=== PATIENT | female | born 1950 | race African-American/Black ===

== ENCOUNTER 2018-10-03 17:30 | Inpatient (IN) | payer MEDICARE ==
[2018-10-03 18:25] LABS: Hemoglobin 8.3 g/dL (12.0-16.0); Red Blood Cell (RBC) Count 3.89 mill/uL (4.20-5.40)
[2018-10-03 18:26] LABS: Mean Platelet Volume 7.6 fL (7.4-10.4); Platelet Count 456 thou/uL (130-400); RBC Distribution Width 17.9 % (11.5-14.5)
[2018-10-03 18:36] LABS: ALT (SGPT) 9 U/L (8-55); AST (SGOT) 14 U/L (5-34); Albumin 3.8 g/dL (3.4-4.8); Alkaline Phosphatase 84 U/L (40-150); Anion Gap 15 mmol/L (10-20); BUN (Urea Nitrogen) 25 mg/dL (9.8-20.1); Bilirubin, Total 0.4 mg/dL (0.2-1.2); CK (CPK) 25 U/L (29-168); CKMB 0.8 ng/mL (0-6.6); Calc. Creatinine Clearance 0 mL/min (70-130); Calcium 8.6 mg/dL (7.8-10.44); Carbon Dioxide 27 mmol/L (23-31); Chloride 97 mmol/L (98-107); Estimated GFR-MDRD 45; Globulin 2.9 g/dL (2.4-3.5); Glucose 102 mg/dL (80-115); Lipase 9 U/L (8-78); Potassium 3.2 mmol/L (3.5-5.1); Protein, Total 6.7 g/dL (6.0-8.3); Sodium 136 mmol/L (136-145)
[2018-10-03 18:37] LABS: Bilirubin Small (Negative); Blood, Urine Negative (Negative); Clarity CLEAR (Clear); Glucose, Urine (Dipstick) Negative (Negative); Leukocyte Negative (Negative); Nitrite Negative (Negative); Protein, Urine (Dipstick) 30 mg/dL (Neg-Trace); Specific Gravity, Urine 1.023 (1.002-1.036); Urobilinogen 0.2 mg/dL (0.2-1.0); pH, Urine 5.5 (5.0-9.0)
[2018-10-03 18:38] LABS: Bacteria/HPF None Seen HPF (None Seen); Pathc Cast-AUWi Flag 2.18 (0-2.49); RBC/HPF 0-3 HPF (0-3); Squamous Epithelial 0-3 HPF (0-3); WBC/HPF 0-3 HPF (0-3)
[2018-10-03 18:42] LABS: Hyaline Casts/LPF 0-3 HYALINE CAST LPF (0-3 Hyaline)
[2018-10-03 18:55] LABS: Acanthocytes SLIGHT = 1-5 cells (100X) (None Seen); Anisocytosis SLIGHT = 6-15 cells (100X) (0-5/hpf); Band 6 % (5-11); Elliptocytes SLIGHT = 2-5 cells (100X) (0-1/hpf); Hypochromia SLIGHT = 6-15 cells (100X) (0-5/hpf); Lymphocytes 7 % (21-51); MDiff Complete? YES; Mean Corpuscular HGB CONC 30.8 g/dL (32.0-36.0); Mean Corpuscular Hemoglobin 21.4 pg (27.0-31.0); Mean Corpuscular Volume 69.6 fL (78.0-98.0); Microcytosis SLIGHT = 6-15 cells (100X) (0-5/hpf); Monocytes 4 % (0-10); Neutrophil 81 % (42-75); PLT Morphology Comment Appears Increased; Polychromasia SLIGHT = 2-3 cells (100X) (0-2/hpf); Reactive Lymphocytes 2 % (0-10); Tear Drops SLIGHT = 2-5 cells (100X) (0-1/hpf)
--- NOTE | 2018-10-03 18:58 | RAD ---
FRONTAL RADIOGRAPH CHEST: 10/03/2018 HISTORY: Nausea, vomiting, diarrhea, and fever with abdominal cramping. COMPARISON: 05/14/2018 FINDINGS: There is increased linear interstitial density with pulmonary hyperinflation. There is atherosclerot ic calcification of the aortic arch, and midline sternotomy wires are noted. A right-sided Port-A-Ca th is present, the distal tip overlying the region of the cavoatrial junction. All these findings ar e stable. There is no pneumothorax, pleural fluid, focal consolidation, or alveolar edema. IMPRESSION: Stable appearance of the chest. No acute findings. POS: [facility]
[2018-10-03] MEDS ORDERED: Acetaminophen 500 MG TAB ONE (19:26)
[2018-10-03] MEDS ORDERED: metroNIDAZOLE 500 MG/100 ML BAG ONE (20:43)
--- NOTE | 2018-10-03 21:01 | CT ---
CT ABDOMEN AND PELVIS PERFORMED WITH INTRAVENOUS CONTRAST ENHANCEMENT: HISTORY: Abdominal pain. The patient is in atrial fibrillation. History of gallbladder removal and hysterect efrain. COMPARISON: None. FINDINGS: The lung bases show some COPD type change. There is indeterminate, 11 mm hypodensity within the right lobe of the liver. CT numbers are higher than typically seen for a cyst, and this would need to be further characterized on a nonemergent basi s with a CT done with liver mass protocol. The spleen and pancreas regions are unremarkable, and the gallbladder has been removed. The right and left adrenal glands are normal. The right and left kidneys are normal in size and not obstructed. There is a hypodensity within the right kidney, most likely a small cyst. There is extensive atherosclerotic change of the vessels. There is moderately high-grade stenosis of the origin of the celiac artery, somewhat difficult to assess on the nonangiographic phase exam, and dense plaque formation at the origin of the superior mesenteric artery, with the suggestion that the re is moderate narrowing also at this level. There is fluid within both the small and large bowel, r aising the possibility of a mild enterocolitis. I do not see any inflammatory process. No evidence for pneumatosis. There is a 4 cm intrarenal abdominal aortic aneurysm. Dense atherosclerotic change at the aortic bif urcation is present, and there appears to be a fairly long segment of occlusion of the right common i liac artery. I do not see any type of inflammatory change in the region of the appendix. The append ix is not definitively identified. No free fluid is seen within the pelvis. There are arthritic changes of the spine with osteoporotic type compression changes of multiple verte bral bodies. IMPRESSION: 1. Fluid throughout the colon but also within the small bowel, raising the possibility of an enteroc olitis. 2. 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 3. A 4 cm infrarenal abdominal aortic aneurysm. 4. Apparent occlusion of a fairly long segment of the right common iliac artery. 5. Indeterminate right lobe hepatic lesion. Findings as discussed above. POS: [facility]
[2018-10-03] MEDS ORDERED: Potassium Chloride 20 MEQ TAB ONE (21:15)
[2018-10-03] MEDS ORDERED: Fentanyl 100 MCG/2 ML VIAL ONE (21:18)
[2018-10-03] MEDS ORDERED: Ondansetron PF 4 MG/2 ML Vial ONE ×2 (21:22→21:30)
[2018-10-03 21:44] LABS: Lactic Acid 0.9 mmol/L (0.5-2.2)
[2018-10-03 21:54] LABS: Troponin I 0.067 ng/mL (< 0.028)
[2018-10-04 00:17] VITALS: BMI 23.5
[2018-10-04] MEDS ORDERED: Fentanyl 100 MCG/2 ML VIAL SLOW IVP PRN (00:52)
[2018-10-04] MEDS ORDERED: Sodium Chloride 0.9% 1,000 ML IV SCH (01:00)
[2018-10-04 01:02] LABS: Troponin I 0.095 ng/mL (< 0.028)
[2018-10-04] MEDS ORDERED: metroNIDAZOLE 500 MG in Premix Bag 1 BAG IVPB SCH (05:00)
[2018-10-04] MEDS ORDERED: Potassium Chloride 20 MEQ TAB PO SCH (08:00)
[2018-10-04] MEDS ORDERED: Aspirin 325 MG TAB PO SCH (09:00)
[2018-10-04] MEDS ORDERED: PROVENTIL INHALER 6.7 G (200 INHALATIONS) INH PRN (09:27)
[2018-10-04] MEDS ORDERED: Artificial Tear Sol 15 ML BOT EA EYE PRN (09:29)
[2018-10-04] MEDS ORDERED: Furosemide 40 MG TAB PO SCH (09:45)
[2018-10-04] MEDS ORDERED: Lisinopril 2.5 MG TAB PO SCH (09:45)
[2018-10-04] MEDS ORDERED: predniSONE 5 MG TAB PO SCH (09:45)
[2018-10-04] MEDS ORDERED: Aspirin 81 mg Enteric Coated Tablet PO SCH (09:45)
[2018-10-04] MEDS ORDERED: Escitalopram Oxalate 20 mg Tablet PO SCH (09:45)
[2018-10-04] MEDS ORDERED: Metoprolol Tartrate 25 MG TAB PO SCH (09:45)
[2018-10-04] MEDS ORDERED: Vancomycin HCl 1 GM in Premix Bag 1 BAG IVPB SCH (10:00)
--- NOTE | 2018-10-04 11:38 | CON ---
DATE OF CONSULTATION: 10/04/2018 REASON FOR CONSULTATION: Vomiting, diarrhea. HISTORY OF PRESENT ILLNESS: A 67-year-old patient who has a history of advanced obstructive lung dis ease, O2 dependent, with a recent admission in May to [facility] when she was treated for exacerbation of COPD. She also has a history of coronary artery disease with prior bypass graft wei gail. While in the hospital in May, she was admitted to the [facility] and treated with nebulization, Allegra u-Medrol, Mucinex, and her microbiology results then were not particularly remarkable. She had bacil roger in one set of blood cultures, likely a contaminant. At this time, she presents from home with na usea, vomiting and diarrhea for the past 3 days associated with abdominal cramps and some fever. No headaches, no visual symptoms, sore throat, odynophagia or dysphagia. Chronic dyspnea as usual, but mild. No chest pain. No sputum production or significant cough. No bleeding, no genitourinary symp toms. Chronic arthrosis in multiple joints. PAST MEDICAL HISTORY: Hypertension, hyperlipidemia, coronary artery disease with prior [place] and mendoza ry bypass graft surgery. She has had a history of lymphoma treated with chemotherapy through a [facility] or[facility], in remission at this time. Previous gastric ulcer. PAST SURGICAL HISTORY: Includes bypass graft surgery cholecystitis with cholecystectomy. SOCIAL HISTORY: Former smoker and lives in her own residence in the area. ALLERGIES: GABAPENTIN, LATEX and PENICILLIN with rash. FAMILY HISTORY: Noncontributory. CURRENT MEDICATIONS: Includes Tylenol, Proventil, DuoNeb, Ecotrin, Lipitor, Lexapro, Lasix, levoflox acin, lisinopril, Zestril, metoprolol, metronidazole, mometasone, pantoprazole, prednisone 10 mg michael y. PHYSICAL EXAMINATION: VITAL SIGNS: T-max 101.1 just recently, blood pressure 120/60, pulse 96, respirations 20, O2 saturat ion 97% on 3 liters nasal cannula. SKIN: Areas of bruising in the extensor aspect of upper extremities. The patient has a port in the right subclavian location which has not been accessed. She is voiding spontaneously. HEENT: Ocular movements are conjugate. Pupils are equal and reactive. Oral cavity is not particula rly remarkable. NECK: Supple, no jugular vein distention. LUNGS: With diminished breath sounds, but no obvious wheezing or crackles. CARDIOVASCULAR: Heart sounds are present, but somewhat diminished. S1, S2 without obvious murmurs. No S3. Regular rate. ABDOMEN: Soft with increased bowel sounds. No particular tenderness noted. No organomegaly or asci luigi. No bladder distention. EXTREMITIES: She is able to move extremities. Pulses 1+ in dorsalis pedis. Trace edema in the lowe r extremities. She has a right knee replacement without any inflammatory changes. NEUROLOGIC: Plantar responses are flexure. No clonus. She is awake, oriented, follows commands. M sharri is preserved. LABORATORY DATA: White cell count 24,000, hemoglobin 8.3, platelets 456 with 81% neutrophils. Chemi stry with a sodium 136, potassium 3.2, creatinine 1.4 and a baseline creatinine is 0.82. Liver profi le normal. CK 25. BNP 223. Troponin 0.06. Albumin 2.8, globulin 2.9. Urinalysis fairly unremarka ble. Influenza test was negative. Two sets of blood cultures are pending. IMAGING STUDIES: There is an abdomen and pelvis CT with fluid throughout the colon, but within the s mall bowel. Extensive atherosclerotic change with high grade stenosis of the celiac artery, occlusio n of a fairly long segment of right common iliac artery. ASSESSMENT: 1. Coronary artery disease. 2. 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 3. Advanced chronic obstructive pulmonary disease with chronic corticosteroid administration. 4. New onset of vomiting with diarrhea, evidence of enterocolitis on the abdomen CT and neutrophilia . DISCUSSION: Differential diagnosis includes Clostridium difficile colitis versus ischemic bowel dise ase versus an alternate form of infectious colitis. Submit C. diff in stool and then manage accordin gly. If C. diff positive, discontinue current antimicrobial and switch her to oral vancomycin, if ne gative, then continue current regimen and await on stool cultures.
[2018-10-04] MEDS: Sodium Chloride 0.9% 1,000 ML IV SCH (12:01)
[2018-10-04] MEDS: Acetaminophen 325 MG TAB PO PRN (12:01)
[2018-10-04] MEDS: metroNIDAZOLE 500 MG in Premix Bag 1 BAG IVPB SCH ×2 (14:27→20:30)
[2018-10-04] MEDS: Mometasone/Formoterol 120 PUFF INHALER INH SCH (18:26)
[2018-10-04] MEDS ORDERED: Mometasone Furoate 30 PUFF 220 MCG INH SCH (18:30)
[2018-10-04] MEDS: Atorvastatin Calcium 40 MG TAB PO SCH (20:29)
[2018-10-04] MEDS: Furosemide 40 MG TAB PO SCH (20:29)
[2018-10-04] MEDS: Montelukast Sodium 10 mg Tablet PO SCH (20:29)
[2018-10-05] MEDS: metroNIDAZOLE 500 MG in Premix Bag 1 BAG IVPB SCH ×2 (05:08→17:41)
[2018-10-05] MEDS: Sodium Chloride 0.9% 1,000 ML IV SCH ×2 (05:11→17:20)
[2018-10-05] MEDS: Acetaminophen 325 MG TAB PO PRN (05:14)
[2018-10-05 06:32] LABS: ALT (SGPT) 7 U/L (8-55); AST (SGOT) 15 U/L (5-34); Albumin 2.9 g/dL (3.4-4.8); Alkaline Phosphatase 58 U/L (40-150); Anion Gap 13 mmol/L (10-20); BUN (Urea Nitrogen) 18 mg/dL (9.8-20.1); Bilirubin, Total 0.3 mg/dL (0.2-1.2); Calc. Creatinine Clearance 38 mL/min (70-130); Calcium 7.9 mg/dL (7.8-10.44); Carbon Dioxide 23 mmol/L (23-31); Chloride 104 mmol/L (98-107); Estimated GFR-MDRD 54; Globulin 2.3 g/dL (2.4-3.5); Glucose 89 mg/dL (80-115); Protein, Total 5.2 g/dL (6.0-8.3); Sodium 137 mmol/L (136-145)
[2018-10-05 06:34] LABS: Potassium 2.5 mmol/L (3.5-5.1)
[2018-10-05] MEDS: Mometasone/Formoterol 120 PUFF INHALER INH SCH ×2 (07:35→18:54)
[2018-10-05 07:37] LABS: #Basophils 0.1 thou/uL (0.0-0.2); #Eosinphils 0.1 thou/uL (0.0-0.7); #Monocytes 0.8 thou/uL (0.11-0.59); #Neutrophils 10.2 thou/uL (1.40-6.50); %Basophils 0.4 % (0.0-1.0); %Eosinophils 0.5 % (0.0-10.0); %Lymphocytes 8.6 % (21.0-51.0); %Monocytes 6.8 % (0.0-10.0); %Neutrophils 83.8 % (42.0-75.0); Hemoglobin 6.4 g/dL (12.0-16.0); Mean Corpuscular HGB CONC 30.3 g/dL (32.0-36.0); Mean Corpuscular Hemoglobin 21.6 pg (27.0-31.0); Mean Corpuscular Volume 71.2 fL (78.0-98.0); Mean Platelet Volume 7.7 fL (7.4-10.4); Platelet Count 313 thou/uL (130-400); RBC Distribution Width 17.3 % (11.5-14.5); Red Blood Cell (RBC) Count 2.94 mill/uL (4.20-5.40); White Blood Cell (WBC) Count 12.1 thou/uL (4.8-10.8)
[2018-10-05 07:46] LABS: Hypochromia MODERATE=16-30 cells (100X) (0-5/hpf); MDiff Complete? YES; Microcytosis MODERATE=15-30 cells (100X) (0-5/hpf); Ovalocytes MODERATE= 6-15 cells (100X) (0-1/hpf); PLT Morphology Comment Appears Adequate; Polychromasia MODERATE = 3-4 cells (100X) (0-2/hpf); Sickle Cells SLIGHT = 1-5 cells (100X) (None Seen)
--- NOTE | 2018-10-05 08:15 | HP ---
CHIEF COMPLAINT: Nausea, vomiting, diarrhea, and abdominal pain. HISTORY OF PRESENT ILLNESS: Ms. Mena is a 67-year-old female with past medical history of end-stage COPD. She came because of abnormal cramping, nausea , vomiting and diarrhea. The patient states that she started with diarrhea and watery loose stools about 4 to 5 days ago, then started nausea and vomiting 2 days ago. She had several loose stools as well as vomited 3 times. She also started having fever yesterday last night, had temperature of 102. She has been having abdominal cramping for one week. Because of these worsening of the symptoms, the patient visited the hospital. In the ER, the patient was evaluated and found to have fever, leukocytosis as well as possible enterocolitis. The patient received IV fluid as well as antibiotics, Flagyl and Levaquin. So, Trina is admitted for further evaluation and management. PAST MEDICAL HISTORY: 1. COPD end-stage, on oxygen. 2. Coronary artery disease status post CABG. 3. Anxiety disorder. 4. Hypertension. 5. Hyperlipidemia. PAST SURGICAL HISTORY: Status post CABG. CURRENT MEDICATIONS: The patient is on aspirin 81 mg daily, Lipitor 40 mg daily , Symbicort 160/4.5 two puffs b.i.d., Lexapro 20 mg daily, Flovent nasal spray b.i.d. daily, Lasix 40 mg b.i.d., and DuoNeb t.i.d., lisinopril 2.5 mg daily, metoprolol 25 mg daily, Singulair 10 mg daily, omeprazole 40 mg daily, KCL 10 mEq daily, and magnesium 10 mg daily. ALLERGIES: LATEX AND PENICILLIN. FAMILY HISTORY: Nothing significant. SOCIAL HISTORY: The patient lives with the family, no history of alcohol intake , currently smokes half pack a day. REVIEW OF SYSTEMS: CARDIOVASCULAR: Has shortness of breath. No chest pain. RESPIRATORY: Has cough and fever. GASTROINTESTINAL: Has nausea, vomiting, abdominal pain, weight gain, diarrhea. CENTRAL NERVOUS SYSTEM: No headache. PHYSICAL EXAMINATION GENERAL: The patient is alert, awake and oriented x3. VITAL SIGNS: Temperature 98, pulse 73, respirations 20, blood pressure 100/60. HEENT: Head is normocephalic and atraumatic. Pupils are equal and reactive. Nasopharynx is pale and dry. HEART: S1 and S2. No murmur, rubs, or gallops. SKIN: Turgor decreased. NECK: Supple, no JVD. LUNGS: Breath sounds diminished bilaterally, percussion dull. No wheezing noticed. ABDOMEN: Soft, diffusely tender. No guarding.BS+ LABORATORY DATA: [place] [address], hemoglobin 8.3, hematocrit 27, platelets 456. Metabolic panel; sodium 136, potassium 3.2, chloride 97, CO2 of 27, BNP 223. IMAGING DATA: Chest x-ray shows chronic changes. CT of the abdomen showed kassandra enterocolitis and also occlusion of right common iliac artery as well as high grade stenosis in the celiac and superior mesenteric artery. EKG shows sinus tachycardia with the heart rate of 139. No acute ST-T changes. ASSESSMENT: 1. Acute enterocolitis. 2. Leukocytosis. 3. Fever rule out sepsis. 4. Chronic obstructive pulmonary disease, end-stage oxygen dependent. 5. Chronic anemia. 6. 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 7. Occlusion of right common iliac artery. PLAN: 1. Vital signs q. 4 hours. 2. Allergies: PENICILLIN and LASIX. 3. Diet, clear liquids. 4. IV fluids half normal saline at 70 mL per hour. 5. Flagyl 500 mg IV piggyback q.8h. Levaquin 750 mg IV piggyback daily. 6. Continue home medications. 7. DNS q.i.d. 8. Infectious Disease Consult. 9. CBC and CMP in the morning. 10. GI consult. Job ID: [id number] [facility]
[2018-10-05] MEDS: Potassium Chloride 20 MEQ in Premix Bag 1 BAG IVPB SCH ×2 (09:19→12:19)
[2018-10-05] MEDS: predniSONE 5 MG TAB PO SCH (10:29)
[2018-10-05] MEDS: Aspirin 81 mg Enteric Coated Tablet PO SCH (10:30)
[2018-10-05] MEDS: Furosemide 40 MG TAB PO SCH ×2 (10:30→21:49)
[2018-10-05] MEDS: Escitalopram Oxalate 20 mg Tablet PO SCH (10:30)
[2018-10-05] MEDS: Lisinopril 2.5 MG TAB PO SCH (10:31)
[2018-10-05] MEDS: Potassium Chloride 10 MEQ TAB PO SCH (10:31)
[2018-10-05] MEDS: Metoprolol Tartrate 25 MG TAB PO SCH (10:31)
--- NOTE | 2018-10-05 15:18 | PQF ---
CLINICAL DOCUMENTATION IMPROVEMENT CLARIFICATION FORM: ICD-10 Updated PLEASE DO AN ADDENDUM TO THE PROGRESS NOTE WITH ANY DOCUMENTATION UPDATES OR ADDITIONS AND CARRY THROUGH TO DC SUMMARY. THANK YOU. DATE: 10/05/18 ATTN: Dr. Morrissey Please exercise your independent, professional judgment in responding to the clarification form. Clinical indicators are provided on the bottom of this form for your review Please check appropriate box(s): [ ] Chronic Respiratory Failure only [ ] with Hypoxia [ y ] Chronic Respiratory Failure only [ ] with Hypercapnia [ ] Other diagnosis [ ] Unable to determine In addition, please specify: Present on Admission (POA): [ y ] Yes [ ] No [ ] Unable to determine For continuity of documentation, please document condition throughout progress notes and discharge summary. Thank You. CLINICAL INDICATORS - SIGNS / SYMPTOMS / LABS ER: RESP. 26 O2 SAT 96 ON 3L Oxygen H&P 10/04: Chronic obstructive pulmonary disease, end-stage oxygen dependent. RISKS: H&P 10/03: COPD end-stage, on oxygen. CAD s/p CABG. HTN. TREATMENT: Order : Resp: O2 to keep sats 92% continuous Order 10/04: Duoneb 3 ml Neb QID Thank you, Petra (This form is maintained as a part of the permanent medical record) 2014 [employer]. All Rights Reserved Petra Valera RN, BSN [email or web address] Office: [phone] [facility]
--- NOTE | 2018-10-05 15:18 | CON ---
DATE OF CONSULTATION: 10/05/2018 REASON FOR CONSULTATION: Abdominal pain associated with nausea, vomiting, and diarrhea. HISTORY OF PRESENT ILLNESS: Ms. Goode is a 67-year-old female with end-stage COPD, who presented to the hospital yesterday with a 3-4 day history of persistent nausea and vomiting associated with watery diarrhea. Concurrently, she reports having abdominal pain, mostly in the upper abdomen, characterized as crampy in nature. She denies having any subjective fevers or chills at home. The nausea and vomiting persisted. Diarrhea is multiple, small to moderate volume, and mostly loose stool without any blood or mucus. She did not have any recent travel history. There is no ill or household member with any gastrointestinal issue. The patient has not been on any recent antibiotics. On admission, the patient was noted to be profoundly hypovolemic and dehydrated. Currently, she feels much better with near resolution of her nausea and vomiting. The abdominal pain has greatly subsided. She still has loose watery diarrhea, although output subjectively is less. CT scan performed in the emergency room showed extensive atherosclerotic changes with high grade stenosis of celiac and SMA takeoff. She also has evidence of right common iliac artery occlusion. This is a small 1-cm right hepatic lesion. There is fluid-filled small bowel and colon without any abdominal dilatation or any significant inflammatory changes. Pancreas appeared normal. PAST MEDICAL HISTORY: 1. End-stage COPD. 2. Coronary artery disease, status post bypass surgery. 3. Hypertension. 4. Hyperlipidemia. 5. Anxiety disorder. 6. Peripheral vascular disease. ALLERGIES: PENICILLIN AND LATEX. HOME MEDICATIONS: Include; 1. Flovent b.i.d. 2. Metoprolol 25 mg daily. 3. Prednisone 10 mg daily. 4. Lisinopril 2.5 mg daily. 5. Symbicort b.i.d. 6. Lipitor 40 mg daily. 7. Lexapro 20 mg daily. 8. Aspirin 81 mg daily. 9. Omeprazole 40 mg b.i.d. 10. Lasix 20 mg b.i.d. 11. Singulair 10 mg nightly. SOCIAL HISTORY: The patient lives at home with her daughter and granddaughter. She does smoke, but no alcohol consumption. FAMILY HISTORY: Negative for any known GI GI malignancy. REVIEW OF SYSTEMS: A 10-point review of systems did not show any other pertinent positive or negatives. PHYSICAL EXAMINATION: VITAL SIGNS: Temperature is 98.0, blood pressure 98/51, and pulse of 81. GENERAL: She is alert, conversant, and in no distress. HEENT: Anicteric sclerae. Oropharynx clear. NECK: Supple. CV: Shows normal S1 and S2. Regular rate and rhythm. CHEST: Shows poor air flow bilaterally. No adventitious sound. ABDOMEN: Soft. No distention. No tympany. CHEST: Some mild tenderness in the medial right upper quadrant, but no guarding rebound. She has active bowel sounds. No organomegaly. EXTREMITIES: Shows no edema. LABORATORY DATA: WBC on admission is 24, currently at 12.1. Hemoglobin 6.4, MCV is 71.2, and platelet count of 313. Sodium 137, potassium 3.5, chloride 104, CO2 of 23, creatinine 1.19, and BUN of 18. LFTs are normal. BNP is 223. Lipase of 9. Abdominal CT as above in HPI. Stool C diff is negative. Stool for occult blood negative x2. Blood culture negative x2 at 24 hours. ASSESSMENT AND PLAN: 1. A 3-4 day history of nausea, vomiting, and diarrhea associated with abdominal pain. Currently, symptoms have much improved. CT scan did not show any inflammatory changes. Fluid in small bowel and colon are consistent with enterocolitis, most likely viral in origin. Blood cultures thus far have been negative. Stool Clostridium difficile has been negative. 2. Severe dehydration and hypokalemia from excessive nausea, vomiting, and diarrhea, being corrected. 3. Severe anemia, iron deficiency. The patient was last admitted in April of this year, but endoscopic evaluation was not performed because of her advanced chronic obstructive pulmonary disease. Currently, there is no evidence of overt bleeding. The stool for occult blood had been negative x2. 4. Abdominal pain, resolving. I doubt that this is from mesenteric insufficiency or abdominal angina. RECOMMENDATIONS: 1. Continue with supportive care, continue with gentle IV hydration. 2. We will start on clear liquids and advance as tolerated. 3. If final blood cultures are negative tomorrow and the patient continues to improve, can discontinue metronidazole and Levaquin tomorrow. 4. We will repeat blood count again, we will transfuse if the hemoglobin is less than 7. Currently, the patient is asymptomatic. 5. Overall supportive care, we will follow. Job ID: [id number]
[2018-10-05] MEDS ORDERED: Furosemide 20 MG/2 ML VIAL SLOW IVP SCH (17:15)
[2018-10-05] MEDS: Atorvastatin Calcium 40 MG TAB PO SCH (21:49)
[2018-10-05] MEDS: Montelukast Sodium 10 mg Tablet PO SCH (21:50)
[2018-10-06] MEDS: metroNIDAZOLE 500 MG in Premix Bag 1 BAG IVPB SCH ×4 (01:25→16:48)
[2018-10-06] MEDS: Mometasone/Formoterol 120 PUFF INHALER INH SCH ×2 (06:25→18:58)
[2018-10-06 06:42] LABS: Anion Gap 12 mmol/L (10-20); BUN (Urea Nitrogen) 8 mg/dL (9.8-20.1); Calc. Creatinine Clearance 47 mL/min (70-130); Calcium 8.5 mg/dL (7.8-10.44); Carbon Dioxide 26 mmol/L (23-31); Chloride 106 mmol/L (98-107); Estimated GFR-MDRD 68; Glucose 85 mg/dL (80-115); Sodium 141 mmol/L (136-145)
[2018-10-06 06:44] LABS: #Eosinphils 0.1 thou/uL (0.0-0.7); #Lymphocytes 1.4 thou/uL (1.20-3.40); %Basophils 0.1 % (0.0-1.0); %Eosinophils 0.7 % (0.0-10.0); %Lymphocytes 13.1 % (21.0-51.0); %Monocytes 9.6 % (0.0-10.0); %Neutrophils 76.5 % (42.0-75.0); Mean Corpuscular HGB CONC 32.1 g/dL (32.0-36.0); Mean Corpuscular Hemoglobin 24.2 pg (27.0-31.0); Mean Corpuscular Volume 75.4 fL (78.0-98.0); Mean Platelet Volume 8.2 fL (7.4-10.4); Platelet Count 318 thou/uL (130-400); Potassium 2.6 mmol/L (3.5-5.1); RBC Distribution Width 18.6 % (11.5-14.5); Red Blood Cell (RBC) Count 4.12 mill/uL (4.20-5.40); White Blood Cell (WBC) Count 10.5 thou/uL (4.8-10.8)
[2018-10-06 07:05] LABS: Elliptocytes SLIGHT = 2-5 cells (100X) (0-1/hpf); Polychromasia SLIGHT = 2-3 cells (100X) (0-2/hpf); Spherocytes SLIGHT = 1-5 cells (100X) (None Seen)
[2018-10-06 07:06] LABS: Acanthocytes SLIGHT = 1-5 cells (100X) (None Seen); PLT Morphology Comment Appears Adequate
[2018-10-06] MEDS: Potassium Chloride 20 MEQ in Premix Bag 1 BAG IVPB SCH ×2 (09:00→13:27)
[2018-10-06] MEDS: predniSONE 5 MG TAB PO SCH (09:01)
[2018-10-06] MEDS: Lisinopril 2.5 MG TAB PO SCH (09:01)
[2018-10-06] MEDS: Escitalopram Oxalate 20 mg Tablet PO SCH (09:01)
[2018-10-06] MEDS: Aspirin 81 mg Enteric Coated Tablet PO SCH (09:02)
[2018-10-06] MEDS: Potassium Chloride 10 MEQ TAB PO SCH (09:02)
[2018-10-06] MEDS: Metoprolol Tartrate 25 MG TAB PO SCH (09:02)
[2018-10-06] MEDS: Furosemide 40 MG TAB PO SCH ×3 (10:45→20:29)
[2018-10-06] MEDS ORDERED: Potassium Chloride 20 MEQ TAB PO SCH (15:00)
--- NOTE | 2018-10-06 15:41 | PQF ---
CLINICAL DOCUMENTATION IMPROVEMENT CLARIFICATION FORM: ICD-10 Updated PLEASE DO AN ADDENDUM TO THE PROGRESS NOTE WITH ANY DOCUMENTATION UPDATES OR ADDITIONS AND CARRY THROUGH TO DC SUMMARY. THANK YOU. DATE: 10/06/18 ATTN: Dr. Morrissey Please exercise your independent, professional judgment in responding to the clarification form. Clinical indicators are provided on the bottom of this form for your review Please check appropriate box(s) to clarify if the following diagnosis has been ruled in or ruled out: SEPSIS [ ] Ruled in diagnosis [ ] Continue to treat [ ] Resolved [ y ] Ruled out diagnosis [ ] Cannot rule out diagnosis [ ] Other diagnosis [ ] Unable to determine In addition, please specify: Present on Admission (POA): [y ] Yes [ ] No [ ] Unable to determine For continuity of documentation, please document condition throughout progress notes and discharge summary. Thank You. CLINICAL INDICATORS - SIGNS / SYMPTOMS / LABS ER RECORD 10/03: BP 107/49 Pulse 112 O2 sat 96 on 3L Oxygen Resp 26 Temp 102.1 DX: Acute sepsis. Enterocolitis, Indeterminate troponin H&P 10/03: WBC 2400 Acute enterocolitis Fever rule out sepsis RISKS: H&P: Acute enterocolitis; COPD. Chronic Anemia. TREATMENT: ORDER 10/04 - 10/05: NS IV 70mls/hr ORDER 10/04: IV Levaquin 750 mg Thank you, Petra (This form is maintained as a part of the permanent medical record) 2014 [employer] All Rights Reserved Petra Valera RN, BSN [email or web address] Office: [phone] [facility]
[2018-10-06] MEDS: Potassium Chloride 20 MEQ TAB PO SCH ×2 (16:48→20:27)
[2018-10-06] MEDS: Atorvastatin Calcium 40 MG TAB PO SCH (20:27)
[2018-10-06] MEDS: Montelukast Sodium 10 mg Tablet PO SCH (20:27)
--- NOTE | 2018-10-06 23:48 | PRG ---
DATE OF SERVICE: 10/06/2018 SUBJECTIVE: Ms. Mena wants to eat. She states she had 4 stools they were somewhat loose, but less loose than yesterday and less associated cramping. She denies any pain at this point but states she is hungry. OBJECTIVE: VITAL SIGNS: Temperature is 97.4, pulse 80, blood pressure 138/68. ABDOMEN: Soft, nontender. Bowel sounds are present. EXTREMITIES: No clubbing, cyanosis, or edema. LABORATORY DATA: White count is 10.5, hemoglobin is 10, MCV 75, platelet count 318. Sodium is 141, potassium , chloride is 106, bicarb 26, BUN and creatinine 8 and 0.9. ASSESSMENT: 1. Acute illness with nausea, vomiting, diarrhea, likely gastroenteritis, improving. 2. Thoracoabdominal pain, markedly improved. 3. Appetite is returning. 4. Severe chronic obstructive pulmonary disease. 5. Chronic microcytic anemia, on PPI therapy. 6. The patient had a CAT scan of the abdomen and pelvis on admission for abdominal pain, and there was extensive atherosclerotic vascular disease, moderate to high grade stenosis with the origin of celiac and the SMA. RECOMMENDATIONS: 1. Advance diet. 2. If she begins to have abdominal pain postprandially, then she would need to be seen by Vascular Surgery with regard to her mesenteric atherosclerotic vascular disease to see if there is any role for revascularization. She informed that she stopped smoking now, a year ago. 3. With regard to her microcytic anemia, she has had a history of iron deficiency in the past. When I had seen her previously in the hospital, her respiratory status was so poor that she could not undergo sedation for endoscopy. I think that after she recovers from this gastroenteritis, if she would like to consider that, we could plan for colonoscopy for cancer screening, EGD at a later date once she gets over the gastroenteritis. We will follow along with you. Job ID: [id number]
[2018-10-07] MEDS: metroNIDAZOLE 500 MG in Premix Bag 1 BAG IVPB SCH ×2 (00:38→08:33)
[2018-10-07] MEDS: Potassium Chloride 20 MEQ TAB PO SCH (00:39)
[2018-10-07 04:55] LABS: #Eosinphils 0.2 thou/uL (0.0-0.7); #Lymphocytes 1.8 thou/uL (1.20-3.40); #Neutrophils 7.3 thou/uL (1.40-6.50); %Eosinophils 1.9 % (0.0-10.0); %Lymphocytes 17.2 % (21.0-51.0); %Monocytes 9.6 % (0.0-10.0); %Neutrophils 71.2 % (42.0-75.0); Hemoglobin 9.9 g/dL (12.0-16.0); Mean Corpuscular HGB CONC 31.8 g/dL (32.0-36.0); Mean Corpuscular Hemoglobin 24.2 pg (27.0-31.0); Mean Corpuscular Volume 76.1 fL (78.0-98.0); Mean Platelet Volume 8.3 fL (7.4-10.4); Platelet Count 315 thou/uL (130-400); RBC Distribution Width 18.6 % (11.5-14.5); White Blood Cell (WBC) Count 10.2 thou/uL (4.8-10.8)
[2018-10-07 05:05] LABS: Anion Gap 10 mmol/L (10-20); BUN (Urea Nitrogen) 6 mg/dL (9.8-20.1); Calc. Creatinine Clearance 53 mL/min (70-130); Calcium 8.9 mg/dL (7.8-10.44); Carbon Dioxide 24 mmol/L (23-31); Chloride 108 mmol/L (98-107); Estimated GFR-MDRD 79; Glucose 85 mg/dL (80-115); Potassium 4.1 mmol/L (3.5-5.1); Sodium 138 mmol/L (136-145)
[2018-10-07] MEDS: Mometasone/Formoterol 120 PUFF INHALER INH SCH (06:35)
[2018-10-07] MEDS: Lisinopril 2.5 MG TAB PO SCH (08:32)
[2018-10-07] MEDS: Escitalopram Oxalate 20 mg Tablet PO SCH (08:32)
[2018-10-07] MEDS: Furosemide 40 MG TAB PO SCH (08:32)
[2018-10-07] MEDS: Aspirin 81 mg Enteric Coated Tablet PO SCH (08:32)
[2018-10-07] MEDS: predniSONE 5 MG TAB PO SCH (08:33)
[2018-10-07] MEDS: Metoprolol Tartrate 25 MG TAB PO SCH (08:33)
[2018-10-07] MEDS ORDERED: Potassium Chloride 20 MEQ TAB PO SCH (09:00)
[2018-10-07 15:33] VITALS: BP 131/60; TEMP 98.7
--- NOTE | 2018-10-08 20:20 | EKG ---
Test Reason : Blood Pressure : / mmHG Vent. Rate : 139 BPM Atrial Rate : 156 BPM P-R Int : 000 ms QRS Dur : 074 ms QT Int : 202 ms P-R-T Axes : 063 071 249 degrees QTc Int : 307 ms Sinus tachycardia with Fusion complexes Septal infarct , age undetermined Abnormal ECG Confirmed by MARI BOO, SAL ([id number]), editor magazine PATRICK YU ([id number]) on 10/08/2018 8:19:55 PM Referred By: Confirmed By:SAL GUERRA MD
--- NOTE | 2018-10-10 07:48 | PRG ---
DATE OF SERVICE: 10/07/2018 SUBJECTIVE: Ms. Mena is feeling well. She is having no further diarrhea. She is eating. OBJECTIVE: VITAL SIGNS: She is afebrile. T-max 99, T-current 99; pulse 71; and blood pressure 163/73. ABDOMEN: Soft and nontender. NEUROLOGIC: She is alert and oriented. LABORATORY DATA: White count is 10.2, hemoglobin is 9.9 after transfusion for a hemoglobin drift in the 6.4, MCV 76, and platelets 315. Sodium 138, potassium 4.1, BUN and creatinine of 6 and 0.87. Microbiology, stool Hemoccult negative x2 on the , all cultures for stool and C diff were negative. ASSESSMENT: 1. Acute gastritis, resolved. 2. Chronic microcytic anemia with documented iron deficiency in 04/2018. She was not able to undergo endoscopies in 04/2018 when I saw her as she had severe chronic obstructive pulmonary disease and was unstable from a respiratory standpoint. 3. 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 RECOMMENDATIONS: I agree that the patient can go home. I would recommended an EGD and colonoscopy in the outpatient setting in a few weeks. I have got her cellphone number, we are going to get her followup in the office so we can get that arranged. I think we could proceed with this now if she stops smoking. Her respiratory status is much better, although she still does have some emphysema and still does use a CPAP. Job ID: [id number]
--- NOTE | 2018-10-10 11:35 | DIS ---
DATE OF ADMISSION: 10/03/2018 DATE OF DISCHARGE: 10/07/2018 ADMITTING DIAGNOSES: 1. Acute enterocolitis, leukocytosis and fever, rule out sepsis, and chronic obstructive pulmonary disease. 2. Chronic anemia. 3. Mesenteric artery stenosis, also occlusion of right common iliac artery. FINAL DIAGNOSES: 1. Acute enterocolitis, resolved, leukocytosis and fever, resolved, and chronic obstructive pulmonary disease, stable, oxygen dependent. 2. Chronic anemia. 3. 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 4. Severe hypokalemia. BRIEF SUMMARY OF HOSPITAL COURSE: Ms. Mena is a 67-year-old female, admitted because of shortness of breath, nausea, vomiting, abdominal pain, and diarrhea. The patient was found to have enterocolitis in the CAT scan. The patient was started on IV antibiotics with Flagyl and levoquin The patient was seen by GI as well as Infectious Disease. advised cultures and if the cultures are negative, to discontinue the antibiotics. The patient have spontaneous severe hypokalemia, resolved. Her potassium dropped to 2.5 and it was replaced, came up to 4. The patient was also anemic. Her hemoglobin dropped to 6.4. She was transfused 2 units of packed red blood cells. The patient's nausea and vomiting slowly resolved and she was started on diet and she tolerated the diet very well. So the patient is discharged. At the time of discharge, she was stable and vital signs are stable lungs clear, Heart S1S2 regular DISCHARGE MEDICATIONS: Include; 1. Lipitor 40 mg daily. 2. Lexapro 20 mg daily. 3. Aspirin 81 mg daily. 4. Omeprazole 40 mg daily. 5. Symbicort 160/4.5 two puffs b.i.d. 6. Ventolin inhaler p.r.n. 7. KCl 20 mEq daily. 8. DuoNebs q.i.d. 9. Singulair 10 mg daily. 10. Lasix 40 mg b.i.d. 11. Metoprolol 25 mg daily. 12. Prednisone 10 mg daily. 13. Lisinopril 2.5 mg daily. 14. BuSpar 15 mg t.i.d. 15. Tylenol p.r.n. FOLLOWUP: The patient will come for followup in 2 weeks. Job ID: [id number] [facility]
== END 2018-10-07 16:47 | disposition home or self-care (01) | DRG 392 ==
LOC: ERS 17:30 → 2SW 21:05 → 2NO 10-06 23:13
PROVIDERS: ADMIT Internal Medicine; ATTEND Internal Medicine
PROC: 30233N1 Transfusion of Nonautologous Red Blood Cells into Peripheral Vein, Percutaneous Approach (ICD-10-PCS; principal; 2018-10-05)
DX: K52.89 Other specified noninfective gastroenteritis and colitis (principal); I74.5 Embolism and thrombosis of iliac artery; I77.4 Celiac artery compression syndrome; J96.10 Chronic respiratory failure, unspecified whether with hypoxia or hypercapnia; D72.829 Elevated white blood cell count, unspecified; Z99.81 Dependence on supplemental oxygen; Z88.0 Allergy status to penicillin; Z91.040 Latex allergy status; Z95.1 Presence of aortocoronary bypass graft; F41.9 Anxiety disorder, unspecified; I10 Essential (primary) hypertension; E78.5 Hyperlipidemia, unspecified; I25.10 Atherosclerotic heart disease of native coronary artery without angina pectoris; I73.9 Peripheral vascular disease, unspecified; F17.200 Nicotine dependence, unspecified, uncomplicated; E86.0 Dehydration; E87.6 Hypokalemia; D50.9 Iron deficiency anemia, unspecified; J44.9 Chronic obstructive pulmonary disease, unspecified
CPT/HCPCS: 36415; 36430; 51701; 71045; 74177; 80048; 80053; 81003; 81015; 82274; 82550; 82553; 83605; 83690; 83735; 83880; 84484; 85025; 86850; 86900; 86901; 87040; 87045; 87046; 87324; 87328; 87329; 87449; 87804; 87899; 93005; 94640; 96365; 96366; 96367; 96368; 96375; A4353; J1940; J1956; J2405; J3010; J3370; J3480; J7620; P9016

== ENCOUNTER 2019-01-01 17:02 | Observation (INO) | payer MEDICARE ==
[2019-01-01 17:37] LABS: #Lymphocytes 1.4 thou/uL (1.20-3.40); #Monocytes 0.3 thou/uL (0.11-0.59); #Neutrophils 12.1 thou/uL (1.40-6.50); %Basophils 0.1 % (0.0-1.0); %Eosinophils 0.1 % (0.0-10.0); %Lymphocytes 10.2 % (21.0-51.0); %Monocytes 1.8 % (0.0-10.0); %Neutrophils 87.7 % (42.0-75.0); Hemoglobin 8.2 g/dL (12.0-16.0); Mean Corpuscular HGB CONC 29.5 g/dL (32.0-36.0); Mean Corpuscular Hemoglobin 23.2 pg (27.0-31.0); Mean Corpuscular Volume 78.5 fL (78.0-98.0); Mean Platelet Volume 7.6 fL (7.4-10.4); Platelet Count 507 thou/uL (130-400); Red Blood Cell (RBC) Count 3.55 mill/uL (4.20-5.40); White Blood Cell (WBC) Count 13.8 thou/uL (4.8-10.8)
[2019-01-01 17:53] LABS: ALT (SGPT) 17 U/L (8-55); AST (SGOT) 21 U/L (5-34); Alkaline Phosphatase 104 U/L (40-150); Anion Gap 16 mmol/L (10-20); BUN (Urea Nitrogen) 21 mg/dL (9.8-20.1); Bilirubin, Total 0.2 mg/dL (0.2-1.2); CK (CPK) 33 U/L (29-168); Calc. Creatinine Clearance 0 mL/min (70-130); Calcium 9.1 mg/dL (7.8-10.44); Carbon Dioxide 31 mmol/L (23-31); Chloride 101 mmol/L (98-107); Estimated GFR-MDRD 56; Globulin 2.7 g/dL (2.4-3.5); Glucose 156 mg/dL (80-115); Potassium 4.2 mmol/L (3.5-5.1); Protein, Total 6.7 g/dL (6.0-8.3); Sodium 144 mmol/L (136-145)
[2019-01-01 17:58] LABS: Anisocytosis SLIGHT = 6-15 cells (100X) (0-5/hpf); Elliptocytes SLIGHT = 2-5 cells (100X) (0-1/hpf); Hypochromia SLIGHT = 6-15 cells (100X) (0-5/hpf); MDiff Complete? YES; Ovalocytes SLIGHT = 2-5 cells (100X) (0-1/hpf); Platelet Morphology Comment Appears Increased; Poikilocytosis SLIGHT = 6-15 cells (100X) (0-5/hpf); Polychromasia SLIGHT = 2-3 cells (100X) (0-2/hpf); Schistocytes SLIGHT = 2-5 cells (100X) (0-1/hpf); Target Cells SLIGHT = 2-5 cells (100X) (0-1/hpf)
--- NOTE | 2019-01-01 17:58 | RAD ---
CHEST ONE VIEW: Comparison: 10-03-18 History: Pain. FINDINGS: Stable right sided Mediport catheter. Surrounding wires noted. Atherosclerosis of the aorta. Normal c ardiac silhouette. The pulmonary vessels and hilum are normal. Costophrenic angles are clear. No mass . No consolidation. No pneumothorax or osseous abnormalities. IMPRESSION: Atherosclerosis. No acute cardiopulmonary process. POS: [facility]
[2019-01-01 21:07] LABS: Troponin I 0.013 ng/mL (< 0.028)
[2019-01-01 22:01] VITALS: BMI 24.7
[2019-01-01] MEDS ORDERED: Atorvastatin Calcium 40 MG TAB PO SCH (22:45)
[2019-01-01] MEDS ORDERED: Carvedilol 3.125 MG TAB PO SCH (22:50)
[2019-01-01] MEDS ORDERED: busPIRone HCl 5 MG TAB PO SCH (22:50)
[2019-01-01] MEDS ORDERED: Montelukast Sodium 10 mg Tablet PO SCH (23:00)
[2019-01-01] MEDS: Acetaminophen 325 MG TAB PO PRN (23:13)
[2019-01-02 00:12] LABS: Troponin I 0.013 ng/mL (< 0.028)
[2019-01-02] MEDS: Mometasone/Formoterol 120 PUFF INHALER INH SCH ×2 (08:00→19:20)
[2019-01-02] MEDS ORDERED: Lisinopril 20 MG TAB PO SCH (09:00)
[2019-01-02] MEDS: Amlodipine 5 MG TAB PO SCH (09:17)
[2019-01-02] MEDS: busPIRone HCl 5 MG TAB PO SCH ×3 (09:18→21:45)
[2019-01-02] MEDS: Escitalopram Oxalate 20 mg Tablet PO SCH (09:18)
[2019-01-02] MEDS: Carvedilol 3.125 MG TAB PO SCH ×2 (09:18→21:44)
[2019-01-02] MEDS: Aspirin 81 mg Enteric Coated Tablet PO SCH (09:18)
[2019-01-02] MEDS: Bacteriostatic Water 30 ML VIAL IVP SCH ×4 (09:19→21:47)
[2019-01-02] MEDS: Furosemide 40 MG TAB PO SCH ×2 (09:19→13:55)
[2019-01-02] MEDS: methylPREDNISolone Sod Succ 40 MG VIAL IVP SCH ×4 (09:19→21:47)
[2019-01-02] MEDS: Potassium Chloride 20 MEQ TAB PO SCH (09:19)
[2019-01-02] MEDS: Acetaminophen 325 MG TAB PO PRN ×2 (17:54→21:44)
[2019-01-02] MEDS: Montelukast Sodium 10 mg Tablet PO SCH (21:44)
[2019-01-02] MEDS: Atorvastatin Calcium 40 MG TAB PO SCH (21:45)
[2019-01-03] MEDS: Mometasone/Formoterol 120 PUFF INHALER INH SCH ×2 (06:49→19:06)
--- NOTE | 2019-01-03 07:30 | HP ---
CHIEF COMPLAINT: Chest tightness, pain, and shortness of breath. HISTORY OF PRESENT ILLNESS: Ms. Mena is a 68-year-old female with past medical history of COPD end-stage, hypertension; coronary artery disease, status post CABG, developed initially back pain, but later developed chest tightness and pain that started about a few days ago and pain was not resolving. The pain was getting worse, not associated with any kind of diaphoresis. No nausea or vomiting. Has shortness of breath, but no headaches or dizziness. The patient decided to come to hospital because of worsening chest tightness. In the ER, the patient was evaluated and found to having COPD exacerbation as well. Patient was given DuoNebs in the ER and dose of Solu-Medrol as well and admitted for further evaluation and management. Currently, she still has some shortness of breath and chest discomfort. PAST MEDICAL HISTORY: 1. Hypertension. 2. Coronary artery disease, status post CABG. 3. COPD, end-stage. 4. Chronic anemia. 5. History of anxiety disorder. 6. Hyperlipidemia. 7. 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 PAST SURGICAL HISTORY: Status post CABG. CURRENT MEDICATIONS: The patient is on; 1. Albuterol inhaler q.i.d. p.r.n. 2. Amlodipine 5 mg daily. 3. Aspirin 81 mg daily. 4. Atorvastatin 40 mg daily. 5. Symbicort 160/4.5 two puffs b.i.d. 6. BuSpar 15 mg t.i.d. 7. Coreg 3.125 b.i.d. 8. Lexapro 20 mg daily. 9. Lasix 40 mg b.i.d. 10. DuoNebs q.i.d. 11. Lisinopril 20 b.i.d. 12. Singulair 10 mg daily. 13. Omeprazole 40 mg daily. 14. KCl 20 mEq daily. ALLERGIES: LATEX AND PENICILLIN. FAMILY HISTORY: Nothing significant. SOCIAL HISTORY: The patient lives with the family, no history of alcohol intake , currently smokes half pack a day. REVIEW OF SYSTEMS: CARDIOVASCULAR: Had chest tightness and shortness of breath. RESPIRATORY: Has no fever, but has cough. GASTROINTESTINAL: No nausea or vomiting. No abdominal pain. GENITOURINARY: No dysuria or hematuria. CENTRAL NERVOUS SYSTEM: No headache. No dizziness. PHYSICAL EXAMINATION: GENERAL: The patient is alert, awake and oriented x3. VITAL SIGNS: Temperature 98, pulse 80, respirations 20, blood pressure 140/80. HEENT: Head is normocephalic and atraumatic. Pupils are equal and reactive. Nasopharynx is pale and dry. Hard and soft palpate, no lesions. SKIN: Turgor decreased. NECK: Supple. No JVD. LUNGS: Breath sounds diminished bilaterally. Percussion dull, wheezing +no rales. HEART: S1 and S2 regular. ABDOMEN: Soft. No distention. No tenderness. Normal bowel sounds present. RECTAL: No symptoms. CENTRAL NERVOUS SYSTEM: No focal deficit. EXTREMITIES: No edema. LABORATORY DATA: CBC shows WBC 13, hemoglobin 8, hematocrit 27, and platelets 507,000. Metabolic panel; sodium 140, potassium 4.2, chloride 101, CO2 of 31, BUN 21, creatinine 1.1, glucose 156, CK was 33, troponin 0.016. EKG showed atrial fibrillation with controlled ventricular rate of 91. Chest x-ray negative for infiltrate. ASSESSMENT: 1. Chest tightness, rule out myocardial infarction. 2. Chronic obstructive pulmonary disease acute exacerbation. 3. Acute on chronic respiratory failure. 4. Hypertension. 5. Coronary artery disease, status post coronary artery bypass graft. 6. Chronic anemia. PLAN: 1. Vital signs q.4 hours. 2. Activity as tolerated. 3. Allergies, penicillin and latex. 4. Hep-Lock. 5. Troponin I q.6 hours x2. 6. Adenosine Cardiolite stress test. 7. Continue home medications. 8. Solu-Medrol 20 IVP q.6. 9. DuoNebs q.i.d. Job ID: [id number] [facility]
[2019-01-03] MEDS: Furosemide 40 MG TAB PO SCH ×2 (09:07→13:52)
[2019-01-03] MEDS: Acetaminophen 325 MG TAB PO PRN ×3 (09:07→21:07)
[2019-01-03] MEDS: Aspirin 81 mg Enteric Coated Tablet PO SCH (09:07)
[2019-01-03] MEDS: Amlodipine 5 MG TAB PO SCH (09:07)
[2019-01-03] MEDS: Escitalopram Oxalate 20 mg Tablet PO SCH (09:07)
[2019-01-03] MEDS: Potassium Chloride 20 MEQ TAB PO SCH (09:08)
[2019-01-03] MEDS: busPIRone HCl 5 MG TAB PO SCH ×3 (09:08→21:05)
[2019-01-03] MEDS: Carvedilol 3.125 MG TAB PO SCH ×2 (09:08→21:05)
[2019-01-03] MEDS: Lisinopril 20 MG TAB PO SCH (09:08)
[2019-01-03] MEDS: Bacteriostatic Water 30 ML VIAL IVP SCH ×4 (09:09→21:06)
[2019-01-03] MEDS: methylPREDNISolone Sod Succ 40 MG VIAL IVP SCH ×4 (09:09→21:04)
[2019-01-03] MEDS: Montelukast Sodium 10 mg Tablet PO SCH (21:05)
[2019-01-03] MEDS: Atorvastatin Calcium 40 MG TAB PO SCH (21:05)
[2019-01-04] MEDS: Acetaminophen 325 MG TAB PO PRN ×3 (05:42→16:48)
[2019-01-04 06:04] LABS: Anion Gap 15 mmol/L (10-20); BUN (Urea Nitrogen) 44 mg/dL (9.8-20.1); Band 2 % (5-11); Calc. Creatinine Clearance 33 mL/min (70-130); Calcium 8.9 mg/dL (7.8-10.44); Carbon Dioxide 31 mmol/L (23-31); Chloride 100 mmol/L (98-107); Estimated GFR-MDRD 44; Glucose 132 mg/dL (80-115); Hemoglobin 7.6 g/dL (12.0-16.0); Lymphocytes 5 % (21-51); MDiff Complete? YES; Mean Corpuscular HGB CONC 29.3 g/dL (32.0-36.0); Mean Corpuscular Volume 78.4 fL (78.0-98.0); Mean Platelet Volume 7.8 fL (7.4-10.4); Monocytes 2 % (0-10); Neutrophil 91 % (42-75); Platelet Count 496 thou/uL (130-400); Platelet Morphology Comment Appears Increased; RBC Distribution Width 17.6 % (11.5-14.5); Sodium 142 mmol/L (136-145); White Blood Cell (WBC) Count 13.7 thou/uL (4.8-10.8)
[2019-01-04] MEDS: Mometasone/Formoterol 120 PUFF INHALER INH SCH (06:50)
[2019-01-04] MEDS: Escitalopram Oxalate 20 mg Tablet PO SCH (08:45)
[2019-01-04] MEDS: busPIRone HCl 5 MG TAB PO SCH ×2 (08:45→13:51)
[2019-01-04] MEDS: Aspirin 81 mg Enteric Coated Tablet PO SCH (08:46)
[2019-01-04] MEDS: Potassium Chloride 20 MEQ TAB PO SCH (08:46)
[2019-01-04] MEDS: Carvedilol 3.125 MG TAB PO SCH (08:47)
[2019-01-04] MEDS: methylPREDNISolone Sod Succ 40 MG VIAL IVP SCH ×3 (08:47→16:46)
[2019-01-04] MEDS: Bacteriostatic Water 30 ML VIAL IVP SCH ×3 (08:47→16:46)
[2019-01-04] MEDS: Amlodipine 5 MG TAB PO SCH (08:48)
[2019-01-04] MEDS: Furosemide 40 MG TAB PO SCH ×2 (08:48→13:50)
[2019-01-04] MEDS: Lisinopril 20 MG TAB PO SCH (08:49)
[2019-01-04] MEDS ORDERED: Regadenoson 0.4 MG/5 ML SYRINGE ONE (08:55)
--- NOTE | 2019-01-04 12:32 | NM ---
MYOCARDIAL PERFUSION STUDY: DATE: 01/04/2019. HISTORY: Chest pain. RADIOPHARMACEUTICALS: 30 mCi Technetium 99m sestamibi, IV at stress, and 10.4 mCi Technetium 99m sestamibi, IV at rest. MEDICATIONS: 0.4 mg of LexiScan, IV. COMPARISON: None available. FINDINGS: There is normal uptake of radiotracer seen within the left ventricular wall ventricular myocardium. No significant reversible defect is seen between the stress and resting acquisitions. Quantitative a nalysis also shows no significant reversible defect. Gated images demonstrate normal ventricular wal l motion and wall thickening. The calculated left ventricular ejection fraction is 78%. IMPRESSION: 1. Normal myocardial perfusion study without evidence of a reversible defect seen to suggest ischemi a. 2. Normal left ventricular ejection fraction of 78%. POS: [facility]
[2019-01-04 15:21] LABS: #Lymphocytes 0.7 thou/uL (1.20-3.40); #Monocytes 0.3 thou/uL (0.11-0.59); #Neutrophils 13.1 thou/uL (1.40-6.50); %Eosinophils 0.1 % (0.0-10.0); %Lymphocytes 5.2 % (21.0-51.0); %Monocytes 2.4 % (0.0-10.0); %Neutrophils 92.4 % (42.0-75.0); Hemoglobin 9.3 g/dL (12.0-16.0); Mean Corpuscular HGB CONC 29.2 g/dL (32.0-36.0); Mean Corpuscular Hemoglobin 23.3 pg (27.0-31.0); Mean Corpuscular Volume 79.9 fL (78.0-98.0); Platelet Count 515 thou/uL (130-400); RBC Distribution Width 17.7 % (11.5-14.5); White Blood Cell (WBC) Count 14.2 thou/uL (4.8-10.8)
[2019-01-04 15:53] VITALS: BP 116/73; TEMP 97.8
== END 2019-01-04 18:18 | disposition home or self-care (01) ==
LOC: ERS 17:02 → 2SW 20:10
PROVIDERS: ADMIT Internal Medicine; ATTEND Internal Medicine
DX: R07.89 Other chest pain (principal); R06.02 Shortness of breath; J44.1 Chronic obstructive pulmonary disease with (acute) exacerbation; I11.0 Hypertensive heart disease with heart failure; I50.9 Heart failure, unspecified; I25.10 Atherosclerotic heart disease of native coronary artery without angina pectoris; D64.9 Anemia, unspecified; F41.9 Anxiety disorder, unspecified; E78.5 Hyperlipidemia, unspecified; Z79.51 Long term (current) use of inhaled steroids; Z79.82 Long term (current) use of aspirin; Z79.899 Other long term (current) drug therapy; Z87.891 Personal history of nicotine dependence; Z88.0 Allergy status to penicillin; Z88.8 Allergy status to other drugs, medicaments and biological substances; Z91.040 Latex allergy status; Z95.1 Presence of aortocoronary bypass graft
CPT/HCPCS: 36430; 71045; 78452; 80048; 80053; 82274; 82550; 84484 ×2; 85025 ×3; 86850; 86900; 86901; 86920; 93005 ×2; 93017; 94640 ×7; 96374; 96376 ×3; 97139; 99285; A9500; G0378 ×3; P9016; 36415; 93010; J2785; J2920; J7620

== ENCOUNTER 2019-01-26 17:44 | Inpatient (IN) | payer MEDICARE ==
[2019-01-26 18:49] LABS: #Lymphocytes 0.6 thou/uL (1.20-3.40); #Monocytes 0.3 thou/uL (0.11-0.59); #Neutrophils 16.8 thou/uL (1.40-6.50); %Eosinophils 0.2 % (0.0-10.0); %Lymphocytes 3.5 % (21.0-51.0); %Monocytes 1.5 % (0.0-10.0); %Neutrophils 94.9 % (42.0-75.0); Hemoglobin 8.8 g/dL (12.0-16.0); Mean Corpuscular HGB CONC 30.2 g/dL (32.0-36.0); Mean Corpuscular Hemoglobin 23.7 pg (27.0-31.0); Mean Corpuscular Volume 78.4 fL (78.0-98.0); Mean Platelet Volume 7.5 fL (7.4-10.4); Platelet Count 470 thou/uL (130-400); RBC Distribution Width 18.2 % (11.5-14.5); White Blood Cell (WBC) Count 17.7 thou/uL (4.8-10.8)
[2019-01-26 19:12] LABS: ALT (SGPT) 27 U/L (8-55); AST (SGOT) 44 U/L (5-34); Albumin 3.4 g/dL (3.4-4.8); Alkaline Phosphatase 133 U/L (40-150); Anion Gap 12 mmol/L (10-20); BUN (Urea Nitrogen) 25 mg/dL (9.8-20.1); Bilirubin, Total 0.6 mg/dL (0.2-1.2); Calc. Creatinine Clearance 0 mL/min (70-130); Calcium 8.2 mg/dL (7.8-10.44); Carbon Dioxide 35 mmol/L (23-31); Chloride 96 mmol/L (98-107); Estimated GFR-MDRD 81; Globulin 2.7 g/dL (2.4-3.5); Glucose 126 mg/dL (80-115); Potassium 3.4 mmol/L (3.5-5.1); Protein, Total 6.1 g/dL (6.0-8.3); Sodium 140 mmol/L (136-145)
--- NOTE | 2019-01-26 19:14 | RAD ---
CHEST ONE VIEW: 01/26/19 HISTORY: Dyspnea. COMPARISON: Radiograph 01/01/19. FINDINGS: Port catheter is in place with tip in similar position. there are chronic scarring in both lung bases . No pneumothorax. No effusion. Mild ectasia of the aorta. IMPRESSION: No acute intrathoracic abnormality. POS: H
[2019-01-26 19:34] LABS: CKMB 1.1 ng/mL (0-6.6)
[2019-01-26] MEDS ORDERED: Ketorolac Tromethamine 30 MG/ML VIAL ONE (20:21)
[2019-01-26 22:02] LABS: Troponin I 0.049 ng/mL (< 0.028)
[2019-01-27] MEDS ORDERED: methylPREDNISolone Sod Succ 40 MG VIAL ONE ×3 (00:09→12:45)
[2019-01-27] MEDS ORDERED: Bacteriostatic Water 30 ML VIAL FS PRN (00:23)
[2019-01-27] MEDS ORDERED: methylPREDNISolone Sod Succ 40 MG VIAL IVP SCH (00:30)
[2019-01-27 01:46] LABS: Troponin I 0.036 ng/mL (< 0.028)
[2019-01-27] MEDS ORDERED: Water For Inject, Bacteriostat 0 ML ONE (12:45)
--- NOTE | 2019-01-27 15:22 | RAD ---
LEFT SHOULDER THREE VIEWS: INDICATIONS: Left shoulder pain. COMPARISON: None. FINDINGS: There is advanced left AC joint osteoarthrosis. There is mild glenohumeral osteoarthrosis. No acute fracture or subluxation is noted. The visualized left lung is clear. IMPRESSION: Osteoarthritic changes of the left shoulder. No acute fracture demonstrated. POS: [facility]
[2019-01-27] MEDS ORDERED: Potassium Chloride 20 MEQ TAB PO SCH (15:45)
--- NOTE | 2019-01-27 17:18 | HP ---
REASON FOR ADMISSION AND CHIEF COMPLAINT: Shortness of breath and chest discomfort. HISTORY OF PRESENT ILLNESS: Ms. Mena is a 68-year-old female with past medical history of end-stage COPD, came with shortness of breath getting worse in the last few days. She has been using her nebulizer treatments; in spite of that, shortness of breath did not improve. It worsened today to the point she could not breathe. She has cough, productive with whitish sputum. She gets chest pain while coughing. She was brought in by the EMS and EMS gave neb treatments, continuous as well as Solu-Medrol. In the ER, the patient was still in respiratory distress and was put on BiPAP. Initially, she was given breathing treatment and Solu-Medrol is continued. After few hours, her breathing improved. She was taken off BiPAP and she was put on nasal cannula. Currently, she feels much better. She does complain of pain in her left shoulder. PAST MEDICAL HISTORY: 1. End-stage COPD, on home oxygen. 2. Hypertension. 3. Coronary artery disease, status post CABG. 4. Chronic anemia. 5. History of CHF. 6. History of anxiety disorder. 7. 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 PAST SURGICAL HISTORY: Status post CABG. CURRENT MEDICATIONS: The patient is on: 1. DuoNeb q.i.d. 2. Amlodipine 5 mg daily. 3. Aspirin 81 mg daily. 4. Atorvastatin 40 mg daily. 5. Symbicort 160/4.5 two puffs b.i.d. 6. BuSpar 15 mg t.i.d. 7. Coreg 3.125 b.i.d. 8. Lexapro 20 mg daily. 9. Lasix 40 mg b.i.d. 10. Lisinopril 20 b.i.d. 11. Singulair 10 mg daily. 12. Omeprazole 40 mg daily. 13. KCl 20 mEq daily. ALLERGIES: LATEX AND PENICILLIN. FAMILY HISTORY: Nothing contributory. SOCIAL HISTORY: The patient lives with family. No history of alcohol intake. Smokes half pack a day. REVIEW OF SYSTEMS: CARDIOVASCULAR: Had chest pain during coughing and shortness of breath. RESPIRATORY: She has cough with productive white sputum. No fever. GASTROINTESTINAL: No nausea, vomiting, or abdominal pain. CENTRAL NERVOUS SYSTEM: No headache. No dizziness. PHYSICAL EXAMINATION: GENERAL: The patient is alert, awake, oriented x3. VITAL SIGNS: Temperature 98, pulse 86, respirations 24, blood pressure 140/80. HEENT: Head is normocephalic and atraumatic. Pupils are equal and reactive. Nasopharynx is pale and dry. Hard and soft palate, no lesions. SKIN: Turgor decreased. NECK: Supple. No JVD. LUNGS: Bilateral air entry present. Expiratory wheeze present. No rales. HEART: S1 and S2, regular. ABDOMEN: Soft. No distention. No tenderness. Normal bowel sounds present. CENTRAL NERVOUS SYSTEM: No focal deficits. LABORATORY DATA: CBC shows WBC 17,000, hemoglobin 8.8, hematocrit 29, platelets 470. Metabolic panel: Sodium 140, potassium 3.4, chloride 96, CO2 of 35, BUN 26, creatinine 0.8, and glucose 126. Troponin . Chest x-ray negative. EKG showed normal sinus rhythm, no acute ST-T wave changes seen. ASSESSMENT: 1. Acute on chronic respiratory failure. 2. End-stage chronic obstructive pulmonary disease with acute exacerbation. 3. Coronary artery disease, status post coronary artery bypass graft. 4. Hypertension. 5. Hypokalemia. 6. Hyperlipidemia. 7. Chronic anemia. 8. Anxiety disorder. 9. Left shoulder pain. PLAN: 1. Vital signs q.4 hours. 2. Allergies, latex, gabapentin and penicillin. 3. Hep-Lock. 4. DuoNeb 1 unit q.4 hours. 5. Solu-Medrol 20 IVP q.6 hours. 6. Continue her home medications. 7. We will obtain x-ray of the left shoulder. 8. Diet, cardiac. 9. Activity as tolerated. Job ID: [id number] [facility]
== END 2019-01-27 17:47 | disposition home or self-care (01) | DRG 189 ==
LOC: ERS 17:44 → ERHOLD 20:15
PROVIDERS: ADMIT Internal Medicine; ATTEND Internal Medicine
PROC: 5A09357 Assistance with Respiratory Ventilation, Less than 24 Consecutive Hours, Continuous Positive Airway Pressure (ICD-10-PCS; principal; 2019-01-26)
DX: J96.20 Acute and chronic respiratory failure, unspecified whether with hypoxia or hypercapnia (principal); J44.1 Chronic obstructive pulmonary disease with (acute) exacerbation; I25.10 Atherosclerotic heart disease of native coronary artery without angina pectoris; Z95.1 Presence of aortocoronary bypass graft; E87.6 Hypokalemia; E78.5 Hyperlipidemia, unspecified; F41.9 Anxiety disorder, unspecified; M25.512 Pain in left shoulder; I11.0 Hypertensive heart disease with heart failure; I50.9 Heart failure, unspecified; Z99.81 Dependence on supplemental oxygen
CPT/HCPCS: 36415; 71045; 80053; 82553; 84484; 85025; 93005; 94640; 94660; J1885; J2920; J7620

== ENCOUNTER 2019-02-05 16:13 | Inpatient (IN) | payer MEDICARE ==
[2019-02-05 16:41] LABS: Actual Bicarbonate (HCO3a) 37.2 mEq/L (22-28); Analyzer IN Cardio ER; CO2 Tension 53.5 mmHg (35.0-45.0); Calcium, Ionized 1.07 mmol/L (1.12-1.30); Carboxyhemoglobin (COHb) 0.4 gm% (0.0-3.0); Hemoglobin (Hb) 8.6 g/dL (12.0-16.0); O2 Tension (PaO2) 77.6 mmHg (> 70.0); pH, Arterial 7.46 (7.35-7.45)
[2019-02-05 16:46] LABS: Puncture Site RRA
[2019-02-05 16:47] LABS: ALV-art Gradient 97.945 (0-20)
--- NOTE | 2019-02-05 16:53 | RAD ---
FPortable chest: HISTORY: Dyspnea COMPARISON: 01/26/2019 FINDINGS: Increasing opacity noted in the right suprahilar region. Focal infiltrate may be present. U nderlying mass lesion cannot be excluded. Lung cabrera otherwise remain clear and unchanged in appeara nce. Heart and mediastinum unchanged. Mediport catheter again noted. IMPRESSION: Abnormal focal opacity in the right suprahilar region. Follow-up recommended.
[2019-02-05 16:59] LABS: Hemoglobin 8.1 g/dL (12.0-16.0); Mean Corpuscular HGB CONC 30.6 g/dL (32.0-36.0); Mean Corpuscular Hemoglobin 23.9 pg (27.0-31.0); Mean Platelet Volume 8.2 fL (7.4-10.4); Platelet Count 271 thou/uL (130-400); RBC Distribution Width 18.7 % (11.5-14.5); Red Blood Cell (RBC) Count 3.39 mill/uL (4.20-5.40); White Blood Cell (WBC) Count 20.9 thou/uL (4.8-10.8)
[2019-02-05] MEDS ORDERED: methylPREDNISolone Sod Succ/PF 125 MG/2 ML VIAL ONE (17:04)
[2019-02-05] MEDS ORDERED: Magnesium 2 GM/50 ML BAG (IN WATER) ONE (17:04)
[2019-02-05 17:16] LABS: ALT (SGPT) 35 U/L (8-55); AST (SGOT) 38 U/L (5-34); Albumin 3.6 g/dL (3.4-4.8); Alkaline Phosphatase 145 U/L (40-150); Anion Gap 16 mmol/L (10-20); BUN (Urea Nitrogen) 40 mg/dL (9.8-20.1); Bilirubin, Total 0.6 mg/dL (0.2-1.2); Calc. Creatinine Clearance 0 mL/min (70-130); Calcium 8.6 mg/dL (7.8-10.44); Carbon Dioxide 37 mmol/L (23-31); Chloride 96 mmol/L (98-107); Estimated GFR-MDRD 60; Globulin 2.1 g/dL (2.4-3.5); Glucose 179 mg/dL (80-115); Potassium 4.5 mmol/L (3.5-5.1); Protein, Total 5.7 g/dL (6.0-8.3); Sodium 144 mmol/L (136-145)
[2019-02-05 17:18] LABS: Anisocytosis SLIGHT = 6-15 cells (100X) (0-5/hpf); Band 2 % (5-11); Elliptocytes SLIGHT = 2-5 cells (100X) (0-1/hpf); Hypochromia SLIGHT = 6-15 cells (100X) (0-5/hpf); Lymphocytes 1 % (21-51); MDiff Complete? YES; Microcytosis SLIGHT = 6-15 cells (100X) (0-5/hpf); Monocytes 2 % (0-10); Neutrophil 95 % (42-75); Platelet Morphology Comment Appears Adequate
[2019-02-05] MEDS ORDERED: Sodium Chloride 0.9% 100 ML ONE (17:27)
[2019-02-05] MEDS ORDERED: cefTRIAXone\\ROCEPHIN 2 GM VIAL ONE (17:27)
[2019-02-05 17:37] LABS: CKMB 1.4 ng/mL (0-6.6)
[2019-02-05] MEDS ORDERED: Azithromycin 500 MG in Sodium Chloride 0.9% 250 ML 250 ML IVPB SCH (18:30)
[2019-02-05 20:41] VITALS: BMI 23.4
[2019-02-05 21:42] LABS: Lactic Acid 4.9 mmol/L (0.5-2.2)
[2019-02-05] MEDS ORDERED: Cefepime 1 GM SYRINGE 1 GM in Sodium Chloride 0.9% 100 ML IVPB SCH (22:00)
[2019-02-05] MEDS: methylPREDNISolone Sod Succ 40 MG VIAL IVP SCH (23:49)
[2019-02-05] MEDS: Cefepime 1 GM in Sodium Chloride 0.9% 100 ML IVPB SCH (23:49)
--- NOTE | 2019-02-06 00:18 | HP ---
CHIEF COMPLAINT: Shortness of breath, cough. HISTORY OF PRESENT ILLNESS: Ms. Goode is a 68-year-old female with past medical history of COPD, hypertension, coronary artery disease, came in because of shortness of breath started 2 days ago. Her shortness of breath got worse today. She has been coughing with productive of yellow sputum, but no fever. The patient recently in the hospital few days ago with chest pain and COPD, was released the same day because she had felt better. The patient does use BiPAP usually in the night, but these last 3 days, she had been using day and night. So, the patient was brought to the emergency room because of worsening of shortness of breath. In the ER, the patient was later found to be in acute on chronic respiratory failure due to COPD exacerbation. Also, the patient felt she may have a right upper lobe pneumonia. The patient received Solu-Medrol, DuoNeb, and magnesium sulfate injection. So far, I do not see any antibiotic being given. The patient is on BiPAP and she [place] [facility] [place] PAST MEDICAL HISTORY: 1. End-stage COPD, on home oxygen. 2. Hypertension. 3. Coronary artery disease, status post CABG. 4. Chronic anemia. 5. History of CHF. 6. History of anxiety disorder. 7. History of high-grade stenosis of celiac and superior mesenteric arteries. PAST SURGICAL HISTORY: Status post CABG. CURRENT MEDICATIONS: The patient is on: 1. DuoNeb q.i.d. 2. Amlodipine 5 mg daily. 3. Aspirin 81 mg daily. 4. Pravastatin 40 mg daily. 5. Symbicort inhaler 160/4.5 two puffs b.i.d. 6. BuSpar 15 mg t.i.d. 7. Coreg 3.125 b.i.d. 8. Lexapro 20 mg daily. 9. Lasix 40 mg b.i.d. 10. KCl 20 mEq daily. 11. Singulair 10 mg daily. 12. Prednisone tapering doses. 13. Omeprazole 40 mg daily. 14. Lisinopril 20 mg b.i.d. 15. Ventolin inhaler p.r.n. ALLERGIES: LATEX AND PENICILLIN. FAMILY HISTORY: Nothing contributory. SOCIAL HISTORY: The patient lives with the family. No history of alcohol intake. Smokes one pack a day. REVIEW OF SYSTEMS: CARDIOVASCULAR: No chest pain. Has shortness of breath. RESPIRATORY: Cough productive with yellow sputum. No fever. GASTROINTESTINAL: No nausea, vomiting, or abdominal pain. CENTRAL NERVOUS SYSTEM: No headache. No dizziness. PHYSICAL EXAMINATION: GENERAL: The patient is alert, awake, and oriented x3. VITAL SIGNS: Temperature 98, pulse 96, respiratory rate 28, blood pressure 130/64, O2 sats 100% on BiPAP. HEENT: Head is normocephalic and atraumatic. Pupils are equal and reactive. Nasopharynx is pink, moist. NECK: Supple. No JVD. LUNGS: Breath sounds diminished bilaterally. Percussion is dull bilaterally. Crackles present on the right side. Diffuse wheezing present bilaterally. HEART: S1 and S2 regular. ABDOMEN: Soft. No distention. No tenderness. Normal bowel sounds. RECTAL: Deferred. CENTRAL NERVOUS SYSTEM: No focal neuro deficits. EXTREMITIES: No edema. LABORATORY DATA: WBC 20.9, hemoglobin 8, hematocrit 26, platelets 271. Metabolic panel; sodium 140, potassium 4.5, chloride 96, CO2 37, BUN 40, creatinine 1.09, glucose 179. Troponin I 0.044. BNP was 179. ABG shows pH 7.46, pCO2 53, PO2 77, saturation 94%. EKG shows normal sinus rhythm, no acute ST-T changes seen. Chest x-ray shows abnormal focal opacities seen in the right suprahilar region. ASSESSMENT: 1. Acute on chronic respiratory failure due to chronic obstructive pulmonary disease exacerbation. 2. Possible pneumonia of the right upper lobe. 3. Chronic anemia. 4. Coronary artery disease, status post CABG. 5. History of congestive heart failure. 6. Anxiety disorder. 7. Tobacco abuse. 8. Hyperlipidemia. PLAN: 1. Vital signs q.4. 2. Activities: As tolerated. 3. Allergies: Latex, natural rubber, penicillin, and gabapentin. 4. Diet: Cardiac. 5. Hep-Lock. 6. Solu-Medrol 20 IVP q.6 hours. 7. DuoNeb 1 unit q.4 hours. 8. Mucinex 600 mg b.i.d. 9. Protonix 40 mg IV piggyback daily and Lovenox 40 mg subcu daily. 10. Continue her home medications. 11. Cefepime 1 g IV piggyback q.8 hours. 12. She will be closely monitored. She will be on BiPAP as well. Job ID: [id number]
[2019-02-06] MEDS: methylPREDNISolone Sod Succ 40 MG VIAL IVP SCH ×4 (05:53→23:45)
[2019-02-06] MEDS: Enoxaparin Sodium 40 MG/0.4 ML SYRINGE SC SCH (09:06)
[2019-02-06] MEDS: guaiFENesin ER 600 MG TAB PO SCH ×2 (09:07→20:21)
[2019-02-06] MEDS: Cefepime 1 GM in Sodium Chloride 0.9% 100 ML IVPB SCH ×3 (09:07→23:45)
[2019-02-06] MEDS: Pantoprazole 40 MG VIAL IVP SCH (09:07)
[2019-02-06] MEDS ORDERED: PROVENTIL INHALER 6.7 G (200 INHALATIONS) INH PRN (17:34)
[2019-02-06] MEDS: Mometasone/Formoterol 120 PUFF INHALER INH SCH (20:00)
[2019-02-06] MEDS: Carvedilol 3.125 MG TAB PO SCH (20:21)
[2019-02-06] MEDS: Atorvastatin Calcium 40 MG TAB PO SCH (20:21)
[2019-02-06] MEDS: busPIRone HCl 5 MG TAB PO SCH (20:21)
[2019-02-06] MEDS: Montelukast Sodium 10 mg Tablet PO SCH (20:21)
[2019-02-06] MEDS: Lisinopril 20 MG TAB PO SCH (20:21)
--- NOTE | 2019-02-06 21:16 | CON ---
DATE OF CONSULTATION: 02/06/2019 HISTORY OF PRESENT ILLNESS: Ms. Mena is a very pleasant 68-year-old female, who has been followed by Dr. Badillo in the office. She has severe chronic obstructive pulmonary disease. She presented with several days of cough, chest congestion, and shortness of breath. She subsequently was seen in the emergency room and sent home and then called our office on Wednesday stating that she was no better and wanted to be in the hospital. She was admitted yesterday evening. PAST MEDICAL HISTORY: Remarkable for: 1. Severe chronic obstructive pulmonary disease. 2. Hypertension. 3. Coronary artery disease. 4. History of coronary artery bypass grafting. 5. History of cardiomyopathy. 6. History of mesenteric vascular disease. 7. History of anxiety. FAMILY HISTORY: Negative for lung disease in early age. SOCIAL HISTORY: She quit smoking 3 days ago. ALLERGIES: SHE REPORTS ALLERGIES TO GABAPENTIN, LATEX, AND PENICILLIN. REVIEW OF SYSTEMS: Ten point review of systems completed, otherwise negative. PHYSICAL EXAMINATION: GENERAL: She is in no distress, sitting upright in bed. She is speaking in short sentences, although, she is not using any accessory muscles. VITAL SIGNS: She is afebrile. Blood pressure 136/63, heart rate 95, and respiratory rates in the low 20s. HEENT: Pupils are equal. Sclerae are anicteric. NECK: Supple. No lymphadenopathy. LUNGS: Distant clear. HEART: Regular rhythm. S1 and S2 are normal. ABDOMEN: Soft and nontender. EXTREMITIES: Without clubbing, cyanosis or edema. LABORATORY DATA: White count 20.9, hemoglobin 8.1, platelets 271. Sodium 144, potassium 4.5, chloride 96, bicarb 37, BUN 40, and creatinine 1.07. A pH 7.46 CO2 of 53, and pO2 of 77. She has her CPAP at the bedside. Chest radiograph shows no infiltrates. IMPRESSION: 1. Chronic obstructive pulmonary disease exacerbation. 2. Pneumonia in her suprahilar area on the right. This may have been present on the last film to a lesser degree. This will need to be followed until it is clear. 3. Sleep apnea with CPAP in the room. 4. Chronic respiratory failure with hypoxia and hypercarbia. 5. Obesity. 6. Ongoing tobacco use in spite of having mesenteric vascular disease and coronary artery disease with a history of coronary artery bypass grafting in the past. 7. Hypertension. 8. Anxiety. We will continue to follow with the other physicians caring for. TIME SPENT: This is a 50-minute consult, with greater than 50% of the time spent on the unit coordinating care. Job ID: [id number] [facility]
[2019-02-07] MEDS: methylPREDNISolone Sod Succ 40 MG VIAL IVP SCH ×4 (05:31→23:52)
[2019-02-07] MEDS: Mometasone/Formoterol 120 PUFF INHALER INH SCH (06:35)
[2019-02-07] MEDS: Escitalopram Oxalate 20 mg Tablet PO SCH (09:29)
[2019-02-07] MEDS: Lisinopril 20 MG TAB PO SCH ×2 (09:29→20:01)
[2019-02-07] MEDS: Furosemide 40 MG TAB PO SCH ×2 (09:30→14:17)
[2019-02-07] MEDS: Potassium Chloride 20 MEQ TAB PO SCH (09:30)
[2019-02-07] MEDS: guaiFENesin ER 600 MG TAB PO SCH ×2 (09:30→20:00)
[2019-02-07] MEDS: busPIRone HCl 5 MG TAB PO SCH ×3 (09:30→20:00)
[2019-02-07] MEDS: Amlodipine 5 MG TAB PO SCH (09:30)
[2019-02-07] MEDS: Aspirin 81 mg Enteric Coated Tablet PO SCH (09:30)
[2019-02-07] MEDS: Carvedilol 3.125 MG TAB PO SCH ×2 (09:30→20:01)
[2019-02-07] MEDS: Enoxaparin Sodium 40 MG/0.4 ML SYRINGE SC SCH (09:31)
[2019-02-07] MEDS: Cefepime 1 GM in Sodium Chloride 0.9% 100 ML IVPB SCH ×2 (09:36→17:36)
[2019-02-07] MEDS: Pantoprazole 40 MG VIAL IVP SCH (09:36)
--- NOTE | 2019-02-07 13:27 | PQF ---
DATE: 02-07-19 ATTN: DR. EILEEN SMITH Please exercise your independent, professional judgment in responding to the clarification form. Clinical indicators are provided on the bottom of this form for your review Please check appropriate box(es): [ ] Sepsis due to: (Pna, etc.) [ ] Severe sepsis with acute organ dysfunction of: (Examples: respiratory failure, other) [ y ] Localized infection without sepsis [ ] Other diagnosis [ ] Unable to determine In addition, please specify: Present on Admission (POA): [ y ] Yes [ ] No [ ] Unable to determine For continuity of documentation, please document condition throughout progress notes and discharge summary. Thank You. CLINICAL INDICATORS - SIGNS / SYMPTOMS / LABS ER: RR: 28, 23, 22, 22, PULSE: 105, DX: PNEUMONIA, COPD EXACERBATION , RESPIRATORY FAILURE H&P: ACUTE ON CHRONIC RESPIRATORY FAILURE DUE TO COPD EXACERBATION, POSSIBLE PNEUMONIA OF THE RIGHT UPPER LOBE. WBC: 02-05-19: 20.9 LACTIC ACID: 02-05-19: 3.8 4.9 HYPERGLYCEMIA IN ABSENCE OF DM 02-05-19: 179 RISK FACTORS: ER: RR: 28, 23, 22, 22, PULSE: 105, DX: PNEUMONIA, COPD EXACERBATION , RESPIRATORY FAILURE ADVANCED AGE TREATMENTS: ER: AZITHROMYCIN IV, CEFTRIAXONE IV MAR: 02-05-19: MAXIPIME IV (This form is maintained as a part of the permanent medical record) 2014 [employer]. All Rights Reserved ANDREW [email or web address] Office: [phone] [facility]
--- NOTE | 2019-02-07 16:29 | PRG ---
DATE OF SERVICE: 02/07/2019 SUBJECTIVE: Ms. Mena says she is feeling better today. OBJECTIVE: VITAL SIGNS: She is afebrile, heart rate is 91, respiratory rate is 20, oximetry is in the 90s on a cannula, blood pressure 116/58. Intake and output positive 185. LUNGS: Remarkable for end-expiratory wheezes. HEART: Regular rhythm. ABDOMEN: Soft. IMPRESSION: 1. Chronic obstructive pulmonary disease with exacerbation. 2. Acute on chronic respiratory failure with hypoxia and hypercarbia. 3. Bronchitis. 4. History of hypertension. 5. History of coronary artery disease. 6. History of coronary bypass grafting. 7. Ongoing tobacco use with mesenteric vascular disease and coronary artery disease. 8. Anxiety. Overall, she appears stable at this time. We will continue to follow. We might consider decreasing her steroid dose from 24 to 48 hours. She will probably be switched off IV antibiotics to p.o. antimicrobials. Job ID: [id number]
[2019-02-07] MEDS: Montelukast Sodium 10 mg Tablet PO SCH (20:00)
[2019-02-07] MEDS: Atorvastatin Calcium 40 MG TAB PO SCH (20:00)
[2019-02-08] MEDS: Mometasone/Formoterol 120 PUFF INHALER INH SCH ×3 (00:28→18:37)
[2019-02-08] MEDS: methylPREDNISolone Sod Succ 40 MG VIAL IVP SCH ×4 (05:12→23:51)
[2019-02-08 05:14] LABS: ALT (SGPT) 25 U/L (8-55); AST (SGOT) 24 U/L (5-34); Albumin 3.1 g/dL (3.4-4.8); Alkaline Phosphatase 128 U/L (40-150); Anion Gap 13 mmol/L (10-20); BUN (Urea Nitrogen) 52 mg/dL (9.8-20.1); Bilirubin, Total 0.3 mg/dL (0.2-1.2); Calc. Creatinine Clearance 39 mL/min (70-130); Calcium 8.8 mg/dL (7.8-10.44); Carbon Dioxide 33 mmol/L (23-31); Chloride 99 mmol/L (98-107); Estimated GFR-MDRD 57; Globulin 2.3 g/dL (2.4-3.5); Glucose 194 mg/dL (80-115); Potassium 4.4 mmol/L (3.5-5.1); Protein, Total 5.4 g/dL (6.0-8.3); Sodium 141 mmol/L (136-145)
[2019-02-08 05:54] LABS: Band 11 % (5-11); Hemoglobin 6.6 g/dL (12.0-16.0); Lymphocytes 1 % (21-51); MDiff Complete? YES; Mean Corpuscular HGB CONC 30.8 g/dL (32.0-36.0); Mean Corpuscular Hemoglobin 23.9 pg (27.0-31.0); Mean Corpuscular Volume 77.8 fL (78.0-98.0); Mean Platelet Volume 8.4 fL (7.4-10.4); Neutrophil 88 % (42-75); Platelet Count 266 thou/uL (130-400); RBC Distribution Width 18.4 % (11.5-14.5); Red Blood Cell (RBC) Count 2.75 mill/uL (4.20-5.40); White Blood Cell (WBC) Count 12.5 thou/uL (4.8-10.8)
[2019-02-08] MEDS: busPIRone HCl 5 MG TAB PO SCH ×3 (09:25→20:51)
[2019-02-08] MEDS: Aspirin 81 mg Enteric Coated Tablet PO SCH (09:26)
[2019-02-08] MEDS: guaiFENesin ER 600 MG TAB PO SCH ×2 (09:26→20:51)
[2019-02-08] MEDS: Lisinopril 20 MG TAB PO SCH ×2 (09:26→20:52)
[2019-02-08] MEDS: Escitalopram Oxalate 20 mg Tablet PO SCH (09:26)
[2019-02-08] MEDS: Potassium Chloride 20 MEQ TAB PO SCH (09:27)
[2019-02-08] MEDS: Carvedilol 3.125 MG TAB PO SCH ×2 (09:27→20:53)
[2019-02-08] MEDS: Pantoprazole 40 MG VIAL IVP SCH (09:27)
[2019-02-08] MEDS: Furosemide 40 MG TAB PO SCH ×2 (09:27→15:56)
[2019-02-08] MEDS: Amlodipine 5 MG TAB PO SCH (09:27)
[2019-02-08] MEDS: Enoxaparin Sodium 40 MG/0.4 ML SYRINGE SC SCH (09:39)
[2019-02-08] MEDS ORDERED: Furosemide 20 MG/2 ML VIAL SLOW IVP SCH (10:00)
--- NOTE | 2019-02-08 19:09 | PRG ---
DATE OF SERVICE: 02/08/2019 SUBJECTIVE: Ms. Mena says she is feeling better again today. OBJECTIVE: VITAL SIGNS: Heart rates in the 90s, blood pressure 151/84, and respiratory rate in the low 20s. LUNGS: Distant faint wheezes. HEART: Regular rhythm. ABDOMEN: Soft and nontender. EXTREMITIES: Without edema. LABORATORY DATA: Her hemoglobin is down to 6.6 this morning. She is receiving blood today. Sodium 141, potassium 4.4, chloride 99, bicarb 33, BUN 52, and creatinine 1.14. IMPRESSION: 1. Gastrointestinal blood loss, being transfused today, still should be monitored and an Gastroenterology should be consulted if she has any signs of bleeding into her intestines. 2. Chronic obstructive pulmonary disease exacerbation advanced. In the past, it was recommended she not undergo endoscopy because of her severe chronic obstructive pulmonary disease, but it is reasonable in my opinion to continue to follow with serial H and Hs, but if she develops bright red blood per rectum or throws up bright red blood, plans might need to change. We will continue to follow with the other physicians caring for. Job ID: [id number]
[2019-02-08] MEDS: Montelukast Sodium 10 mg Tablet PO SCH (20:51)
[2019-02-08] MEDS: Atorvastatin Calcium 40 MG TAB PO SCH (20:51)
[2019-02-09 05:12] LABS: #Lymphocytes 0.6 thou/uL (1.20-3.40); #Monocytes 0.3 thou/uL (0.11-0.59); #Neutrophils 13.3 thou/uL (1.40-6.50); %Basophils 0.2 % (0.0-1.0); %Lymphocytes 4.5 % (21.0-51.0); %Monocytes 2.1 % (0.0-10.0); %Neutrophils 93.2 % (42.0-75.0); Hemoglobin 10.6 g/dL (12.0-16.0); Mean Corpuscular HGB CONC 31.8 g/dL (32.0-36.0); Mean Corpuscular Hemoglobin 25.5 pg (27.0-31.0); Mean Corpuscular Volume 80.2 fL (78.0-98.0); Mean Platelet Volume 8.3 fL (7.4-10.4); Platelet Count 275 thou/uL (130-400); RBC Distribution Width 18.3 % (11.5-14.5); Red Blood Cell (RBC) Count 4.17 mill/uL (4.20-5.40); White Blood Cell (WBC) Count 14.3 thou/uL (4.8-10.8)
[2019-02-09 05:29] LABS: Anion Gap 16 mmol/L (10-20); BUN (Urea Nitrogen) 52 mg/dL (9.8-20.1); Calc. Creatinine Clearance 50 mL/min (70-130); Calcium 8.9 mg/dL (7.8-10.44); Carbon Dioxide 36 mmol/L (23-31); Chloride 95 mmol/L (98-107); Estimated GFR-MDRD 75; Glucose 152 mg/dL (80-115); Potassium 4.2 mmol/L (3.5-5.1); Sodium 143 mmol/L (136-145)
[2019-02-09] MEDS: methylPREDNISolone Sod Succ 40 MG VIAL IVP SCH (06:13)
[2019-02-09] MEDS: Mometasone/Formoterol 120 PUFF INHALER INH SCH ×2 (07:19→18:44)
[2019-02-09] MEDS: Furosemide 40 MG TAB PO SCH ×2 (09:45→12:50)
[2019-02-09] MEDS: busPIRone HCl 5 MG TAB PO SCH ×3 (09:45→20:47)
[2019-02-09] MEDS: Potassium Chloride 20 MEQ TAB PO SCH (09:45)
[2019-02-09] MEDS: guaiFENesin ER 600 MG TAB PO SCH ×2 (09:46→20:47)
[2019-02-09] MEDS: Carvedilol 3.125 MG TAB PO SCH ×2 (09:46→20:47)
[2019-02-09] MEDS: Escitalopram Oxalate 20 mg Tablet PO SCH (09:46)
[2019-02-09] MEDS: Amlodipine 5 MG TAB PO SCH (09:46)
[2019-02-09] MEDS: Lisinopril 20 MG TAB PO SCH ×2 (09:46→20:47)
[2019-02-09] MEDS: Aspirin 81 mg Enteric Coated Tablet PO SCH (09:46)
[2019-02-09] MEDS: Pantoprazole 40 MG VIAL IVP SCH (09:48)
--- NOTE | 2019-02-09 10:26 | PRG ---
DATE OF SERVICE: 02/09/2019 SUBJECTIVE: Ms. Mena did well overnight. OBJECTIVE: VITAL SIGNS: She is afebrile. Heart rate is 90, blood pressure 154/79, and respiratory rate is in the teens. LUNGS: Clear. HEART: Regular rhythm. ABDOMEN: Soft. LABORATORY DATA: Hemoglobin is up to 10.6 today. Electrolytes are remarkable only for an elevated bicarb, which is associated with her COPD. Her elevated BUN is suggestive of blood in her gastrointestinal tract. IMPRESSION: End-stage chronic obstructive pulmonary disease. We discussed end of life issues and life support. She informed me she did not want life support after it was explained to her that she may not wean from mechanical ventilation or might require tracheostomy. We will continue with aggressive care short of that. Ongoing GI blood loss. She is not a candidate for any type of sedation for endoscopy, so this should just be monitored with close lab followup. She is stable to move out of the intermediate care unit in my opinion. Do not resuscitate. Order has been placed in the chart. Job ID: [id number]
[2019-02-09] MEDS: Atorvastatin Calcium 40 MG TAB PO SCH (20:47)
[2019-02-09] MEDS: Montelukast Sodium 10 mg Tablet PO SCH (20:47)
[2019-02-10] MEDS: Mometasone/Formoterol 120 PUFF INHALER INH SCH ×2 (06:33→19:13)
[2019-02-10 06:56] LABS: Band 2 % (5-11); Hemoglobin 11.6 g/dL (12.0-16.0); Lymphocytes 15 % (21-51); MDiff Complete? YES; Mean Corpuscular Volume 81.2 fL (78.0-98.0); Mean Platelet Volume 9.3 fL (7.4-10.4); Monocytes 2 % (0-10); Neutrophil 81 % (42-75); Platelet Count 224 thou/uL (130-400); Platelet Morphology Comment Appears Adequate; RBC Distribution Width 19.2 % (11.5-14.5); Red Blood Cell (RBC) Count 4.47 mill/uL (4.20-5.40)
[2019-02-10] MEDS: Carvedilol 3.125 MG TAB PO SCH ×2 (08:32→20:30)
[2019-02-10] MEDS: predniSONE 20 MG TAB PO SCH (08:32)
[2019-02-10] MEDS: Aspirin 81 mg Enteric Coated Tablet PO SCH (08:32)
[2019-02-10] MEDS: busPIRone HCl 5 MG TAB PO SCH ×3 (08:32→20:30)
[2019-02-10] MEDS: Amlodipine 5 MG TAB PO SCH (08:32)
[2019-02-10] MEDS: Lisinopril 20 MG TAB PO SCH ×2 (08:32→20:30)
[2019-02-10] MEDS: guaiFENesin ER 600 MG TAB PO SCH ×2 (08:32→20:29)
[2019-02-10] MEDS: Furosemide 40 MG TAB PO SCH ×2 (08:32→14:27)
[2019-02-10] MEDS: Potassium Chloride 20 MEQ TAB PO SCH (08:32)
[2019-02-10] MEDS: Escitalopram Oxalate 20 mg Tablet PO SCH (08:33)
[2019-02-10] MEDS ORDERED: Ondansetron ODT 4 MG TAB PO PRN (12:54)
[2019-02-10] MEDS ORDERED: Simethicone Chewable 80 MG TAB PO PRN (12:54)
--- NOTE | 2019-02-10 17:07 | PRG ---
DATE OF SERVICE: 02/10/2019 SUBJECTIVE: Shelli Mena had some vomiting and actually vomited in her CPAP today. She complained of nausea. I have stopped her Levaquin and switched to Ceftin. This may be making her nauseated. OBJECTIVE: LUNGS: Remarkable for distant wheezes still. HEART: Regular rhythm. ABDOMEN: Soft. LABORATORY DATA: Her hemoglobin is stable at 11.6 today. Electrolytes were not done today. IMPRESSION: 1. End-stage chronic obstructive pulmonary disease. 2. Intermittent GI blood loss? AV malformations. She is not a candidate for endoscopy because of her chronic obstructive pulmonary disease. Continue current antimicrobial therapy, steroids, nebulizer treatments, antiemetics for nausea support. Job ID: [id number]
[2019-02-10] MEDS: Atorvastatin Calcium 40 MG TAB PO SCH (20:29)
[2019-02-10] MEDS: Montelukast Sodium 10 mg Tablet PO SCH (20:30)
[2019-02-10] MEDS: Cefuroxime Axetil 250 MG TAB PO SCH (20:30)
[2019-02-11] MEDS: Mometasone/Formoterol 120 PUFF INHALER INH SCH ×2 (07:35→19:57)
[2019-02-11] MEDS: Escitalopram Oxalate 20 mg Tablet PO SCH (08:19)
[2019-02-11] MEDS: predniSONE 20 MG TAB PO SCH (08:19)
[2019-02-11] MEDS: Amlodipine 5 MG TAB PO SCH (08:19)
[2019-02-11] MEDS: busPIRone HCl 5 MG TAB PO SCH ×3 (08:19→20:39)
[2019-02-11] MEDS: Potassium Chloride 20 MEQ TAB PO SCH (08:19)
[2019-02-11] MEDS: Lisinopril 20 MG TAB PO SCH ×2 (08:22→20:37)
[2019-02-11] MEDS: Furosemide 40 MG TAB PO SCH ×2 (08:22→14:44)
[2019-02-11] MEDS: Cefuroxime Axetil 250 MG TAB PO SCH ×2 (08:22→20:39)
[2019-02-11] MEDS: guaiFENesin ER 600 MG TAB PO SCH ×2 (08:22→20:39)
[2019-02-11] MEDS: Aspirin 81 mg Enteric Coated Tablet PO SCH (08:22)
[2019-02-11] MEDS: Carvedilol 3.125 MG TAB PO SCH ×2 (08:22→20:39)
--- NOTE | 2019-02-11 19:56 | PRG ---
DATE OF SERVICE: 02/11/2019 SUBJECTIVE: Shelli Mena says she feels 100% better. She feels like she is getting closer going home. OBJECTIVE: VITAL SIGNS: Heart rate is 85, respiratory rate is 18, and oximetry is 91. GENERAL: She has had no more nausea and vomiting. LUNGS: Clear today. HEART: Regular rhythm. ABDOMEN: Soft. LABORATORY DATA: Hemoglobin was not checked today. We will order CBC from the morning. IMPRESSION AND PLAN: 1. Blood loss anemia. Not a candidate for endoscopy. 2. End-stage chronic obstructive pulmonary disease. 3. Nausea and vomiting yesterday, resolved. ? Related to antimicrobial therapy. 4. Deconditioning and obesity. She may be a candidate for discharge in 24 to 48 hours. Job ID: [id number]
[2019-02-11] MEDS: Montelukast Sodium 10 mg Tablet PO SCH (20:39)
[2019-02-11] MEDS: Atorvastatin Calcium 40 MG TAB PO SCH (20:39)
[2019-02-12 07:55] LABS: Hemoglobin 11.2 g/dL (12.0-16.0); Mean Corpuscular HGB CONC 31.4 g/dL (32.0-36.0); Mean Corpuscular Hemoglobin 25.9 pg (27.0-31.0); Mean Corpuscular Volume 82.4 fL (78.0-98.0); Mean Platelet Volume 8.6 fL (7.4-10.4); Platelet Count 236 thou/uL (130-400); RBC Distribution Width 19.4 % (11.5-14.5); Red Blood Cell (RBC) Count 4.33 mill/uL (4.20-5.40); White Blood Cell (WBC) Count 10.7 thou/uL (4.8-10.8)
[2019-02-12 07:59] LABS: Anion Gap 14 mmol/L (10-20); BUN (Urea Nitrogen) 57 mg/dL (9.8-20.1); Calc. Creatinine Clearance 44 mL/min (70-130); Carbon Dioxide 35 mmol/L (23-31); Chloride 94 mmol/L (98-107); Estimated GFR-MDRD 65; Glucose 107 mg/dL (80-115); Potassium 3.3 mmol/L (3.5-5.1); Sodium 140 mmol/L (136-145)
[2019-02-12] MEDS: Potassium Chloride 20 MEQ TAB PO SCH ×3 (08:05→15:43)
[2019-02-12] MEDS: Carvedilol 3.125 MG TAB PO SCH (08:05)
[2019-02-12] MEDS: Amlodipine 5 MG TAB PO SCH (08:05)
[2019-02-12] MEDS: guaiFENesin ER 600 MG TAB PO SCH (08:05)
[2019-02-12] MEDS: busPIRone HCl 5 MG TAB PO SCH ×2 (08:05→14:13)
[2019-02-12] MEDS: Cefuroxime Axetil 250 MG TAB PO SCH (08:05)
[2019-02-12] MEDS: Escitalopram Oxalate 20 mg Tablet PO SCH (08:06)
[2019-02-12] MEDS: Aspirin 81 mg Enteric Coated Tablet PO SCH (08:06)
[2019-02-12] MEDS: predniSONE 20 MG TAB PO SCH (08:06)
[2019-02-12] MEDS: Lisinopril 20 MG TAB PO SCH (08:06)
[2019-02-12] MEDS: Furosemide 40 MG TAB PO SCH ×2 (08:06→14:14)
[2019-02-12 08:16] LABS: Burr Cells SLIGHT = 2-5 cells (100X) (0-1/hpf); Elliptocytes SLIGHT = 2-5 cells (100X) (0-1/hpf); Eosinophils 1 % (0-10); Hypochromia SLIGHT = 6-15 cells (100X) (0-5/hpf); Lymphocytes 2 % (21-51); MDiff Complete? YES; Monocytes 7 % (0-10); Neutrophil 88 % (42-75); Platelet Morphology Comment Appears Adequate; Reactive Lymphocytes 2 % (0-10)
[2019-02-12] MEDS: Mometasone/Formoterol 120 PUFF INHALER INH SCH (08:41)
--- NOTE | 2019-02-12 15:43 | PRG ---
DATE OF SERVICE: 02/12/2019 SUBJECTIVE: Shelli Mena is in no distress. She says she is ready to go home. In her words "get me out here." Potassium is little low reportedly this morning. She had potassium replaced. I do not feel she needs to stay in the hospital for potassium of 3.3. OBJECTIVE: LUNGS: Clear now. HEART: Regular rhythm. ABDOMEN: Soft. IMPRESSION: 1. Severe chronic obstructive pulmonary disease exacerbation. 2. Acute on chronic respiratory failure with hypoxia and hypercarbia with noninvasive ventilatory support at home. 3. Bronchitis. 4. Steroid dependence. 5. Do not resuscitate status. 6. Deconditioning, obesity. 7. Anemia, status post transfusion in this admission, most likely secondary to ongoing slow GI blood loss. Her hemoglobin is 11.2 today. I leave her prescription for prednisone and antibiotic, to follow up with me in 2 to 3 weeks. Job ID: [id number]
[2019-02-12 16:40] VITALS: BP 152/76; TEMP 98.1
--- NOTE | 2019-02-13 13:10 | DIS ---
DATE OF ADMISSION: 02/05/2019 DATE OF DISCHARGE: 02/12/2019 ADMITTING DIAGNOSES: 1. Acute on chronic respiratory failure due to chronic obstructive pulmonary disease exacerbation. 2. Pneumonia, right lung. 3. Chronic anemia. 4. Coronary artery disease status post coronary artery bypass graft. 5. History of congestive heart failure. 6. Anxiety disorder. 7. Tobacco abuse. 8. Hyperlipidemia. FINAL DIAGNOSES: 1. Acute on chronic respiratory failure due to chronic obstructive pulmonary disease exacerbation, improved. 2. Pneumonia, right suprahilar region, improving. 3. Hypokalemia, corrected. 4. Symptomatic anemia, status post transfusion. 5. Coronary artery disease, status post coronary artery bypass graft. 6. Anxiety disorder. 7. Hyperlipidemia. 8. Tobacco abuse. BRIEF SUMMARY OF HOSPITAL COURSE: Ms. Mena is a 68-year-old female admitted because of respiratory failure, the patient with COPD exacerbation, also found to have pneumonia in the right lung and suprahilar area. The patient was started on cefepime, nebulized treatments, and Solu-Medrol. Initially, the patient was on BiPAP, admitted to [facility] [place] The patient was recently seen by Dr. Khan in pulmonary consultation and and advised to continue with current antibiotics and treatment. The patient improved in the next few days. The patient became more anemic, became symptomatic, became very weak. Her hemoglobin dropped to 6.6, so was transfused 2 units of packed red blood cells and it improved to 10.6, and her hemoglobin remained around 10 to 11. The patient also developed hypokalemia and nausea, vomiting which resolved. Hypokalemia was corrected. The patient's cefepime was discontinued and started on Levaquin which probably caused vomiting and it was change to Ceftin later, and the patient had no vomiting since then and tolerating diet very well. Her shortness of breath improved. In view of improvement, the patient is being discharged. At the time of discharge, she is stable. The patient feels better. In view of improvement, the patient is being discharged. DISCHARGE PHYSICAL EXAMINATION: GENERAL: At the time of discharge, she was stable. VITAL SIGNS: Stable. LUNGS: Clear. HEART: Heart sounds regular. ABDOMEN: Soft and nontender. Bowel sounds are present. DISCHARGE MEDICATIONS: Include; 1. Lexapro 20 mg daily. 2. Aspirin 81 mg daily. 3. Omeprazole 40 mg daily. 4. Symbicort 160/4.5 2 puffs b.i.d. 5. Albuterol inhaler 2 puffs q.i.d. p.r.n. 6. DuoNeb q.i.d. 7. Singulair 10 mg daily. 8. Lasix 40 mg b.i.d. 9. Prednisone in tapering doses. 10. Lisinopril 20 mg b.i.d. 11. BuSpar 15 mg t.i.d. 12. KCl 20 mEq daily. 13. Lipitor 40 mg daily. 14. Amlodipine 5 mg daily. 15. Coreg 3.125 b.i.d. 16. Mucinex 600 b.i.d. for 10 days. 17. Ceftin 250 b.i.d. for 1 week. DISCHARGE FOLLOWUP: The patient will be followed up in 2 weeks. Job ID: [id number] MTDD
--- NOTE | 2019-02-15 12:02 | PQF ---
FLORES HAYDEN VENKAT R MD [id number] [facility]- [id number] CLINICAL DOCUMENTATION CLARIFICATION FORM: POST DISCHARGE Addendum to original discharge summary date: ____ Late entry note date: __ DATE: 02/15/19 ATTN: Dr. Morrissey, Please exercise your independent, professional judgment in responding to the clarification form. Clinical indicators are provided on the bottom of this form for your review Please check appropriate box(s): HEART FAILURE: A. TYPE: [ ] Systolic / HFrEF [ ] Diastolic / HFpEF [ ] Combined Systolic / Diastolic B. ACUITY [ ] Acute [ ] Acute on Chronic [ ] Chronic [ ] Other diagnosis [ y Unable to determine In addition, please specify: Present on Admission (POA): [y ] Yes [ ] No [ ] Unable to determine For continuity of documentation, please document condition throughout progress notes and discharge summary. Thank You. CLINICAL INDICATORS - SIGNS / SYMPTOMS / LABS History of CHF--Discharge summary, 02/05 H&P RISKS: CAD/Status post CABG--02/05 H&P Hypertension--02/05 H&P TREATMENTS: Lasix 40 mg bid---02/05 H&P current meds. Thank you, Sandy Chou, [facility] [place] 12:00PM (This form is maintained as a part of the permanent medical record) 2014 [employer] All Rights Reserved Sandy [email or web address] [phone] MARIBEL
== END 2019-02-12 16:46 | disposition home or self-care (01) | DRG 190 ==
LOC: ERS 16:13 → IMCU/EMU 17:36 → T4-A 02-09 14:03
PROVIDERS: ADMIT Internal Medicine; ATTEND Internal Medicine
PROC: 30233N1 Transfusion of Nonautologous Red Blood Cells into Peripheral Vein, Percutaneous Approach (ICD-10-PCS; principal; 2019-02-08)
DX: J44.1 Chronic obstructive pulmonary disease with (acute) exacerbation (principal); J18.9 Pneumonia, unspecified organism; J96.22 Acute and chronic respiratory failure with hypercapnia; J96.21 Acute and chronic respiratory failure with hypoxia; I25.10 Atherosclerotic heart disease of native coronary artery without angina pectoris; F41.9 Anxiety disorder, unspecified; F17.210 Nicotine dependence, cigarettes, uncomplicated; E78.5 Hyperlipidemia, unspecified; J44.0 Chronic obstructive pulmonary disease with (acute) lower respiratory infection; Z66 Do not resuscitate; E66.9 Obesity, unspecified; Z68.23 Body mass index [BMI] 23.0-23.9, adult; R53.81 Other malaise; D50.0 Iron deficiency anemia secondary to blood loss (chronic); G47.30 Sleep apnea, unspecified; I99.8 Other disorder of circulatory system; E87.6 Hypokalemia; Z95.1 Presence of aortocoronary bypass graft; Z79.899 Other long term (current) drug therapy; Z79.51 Long term (current) use of inhaled steroids; Z99.81 Dependence on supplemental oxygen; I11.0 Hypertensive heart disease with heart failure; I50.9 Heart failure, unspecified; Z79.52 Long term (current) use of systemic steroids; Z91.040 Latex allergy status; Z88.0 Allergy status to penicillin
CPT/HCPCS: 36415; 36430; 71045; 80048; 80053; 82274; 82553; 82805; 83605; 83880; 84484; 85007; 85025; 85027; 86850; 86900; 86901; 87040; 93005; 94640; 94760; 96365; 96367; 96375; C9113; J0456; J0692; J0696; J1650; J1940; J2920; J2930; J3475; J7050; J7620; P9016; Q0162

== ENCOUNTER 2019-02-27 17:33 | Inpatient (IN) | payer MEDICARE ==
[~2019-02-27 17:33] MED LIST: ISOVUE-370 76%-LOCM 1 ML ONE
[2019-02-27 18:06] LABS: #Lymphocytes 0.9 thou/uL (1.20-3.40); #Monocytes 0.3 thou/uL (0.11-0.59); #Neutrophils 9.6 thou/uL (1.40-6.50); %Basophils 0.1 % (0.0-1.0); %Eosinophils 0.2 % (0.0-10.0); %Lymphocytes 7.9 % (21.0-51.0); %Monocytes 2.3 % (0.0-10.0); %Neutrophils 89.4 % (42.0-75.0); Hemoglobin 10.9 g/dL (12.0-16.0); Mean Corpuscular HGB CONC 30.9 g/dL (32.0-36.0); Mean Corpuscular Hemoglobin 26.2 pg (27.0-31.0); Mean Corpuscular Volume 84.7 fL (78.0-98.0); Mean Platelet Volume 8.7 fL (7.4-10.4); Platelet Count 294 thou/uL (130-400); RBC Distribution Width 20.8 % (11.5-14.5); Red Blood Cell (RBC) Count 4.15 mill/uL (4.20-5.40); White Blood Cell (WBC) Count 10.7 thou/uL (4.8-10.8)
--- NOTE | 2019-02-27 18:16 | RAD ---
Frontal radiograph chest: 02/27/2019 COMPARISON: 02/05/2019 HISTORY: Hypotension and dyspnea, weakness FINDINGS: Stable midline sternotomy wires and right-sided Port-A-Cath. No pneumothorax, pleural fluid , focal consolidation, or evidence of edema. Increased linear interstitial density and pulmonary hyperinflation noted, stable. Stable nonspecific prominence of the right hilar shadow. IMPRESSION: No focal consolidation or alveolar edema.
[2019-02-27 18:27] LABS: ALT (SGPT) 42 U/L (8-55); AST (SGOT) 42 U/L (5-34); Albumin 3.5 g/dL (3.4-4.8); Alkaline Phosphatase 201 U/L (40-150); Anion Gap 20 mmol/L (10-20); BUN (Urea Nitrogen) 32 mg/dL (9.8-20.1); Bilirubin, Total 0.5 mg/dL (0.2-1.2); CK (CPK) 33 U/L (29-168); Calc. Creatinine Clearance 0 mL/min (70-130); Calcium 9.2 mg/dL (7.8-10.44); Carbon Dioxide 27 mmol/L (23-31); Chloride 99 mmol/L (98-107); Estimated GFR-MDRD 48; Globulin 2.7 g/dL (2.4-3.5); Glucose 195 mg/dL (80-115); Potassium 4.5 mmol/L (3.5-5.1); Protein, Total 6.2 g/dL (6.0-8.3); Sodium 141 mmol/L (136-145)
[2019-02-27 19:25] LABS: Bilirubin Negative (Negative); Blood, Urine Negative (Negative); Clarity CLEAR (Clear); Glucose, Urine (Dipstick) Negative (Negative); Leukocyte Negative (Negative); Nitrite Negative (Negative); Protein, Urine (Dipstick) Negative (Neg-Trace); Specific Gravity, Urine 1.017 (1.002-1.036); Urobilinogen 0.2 mg/dL (0.2-1.0)
[2019-02-27] MEDS ORDERED: cefTRIAXone\\ROCEPHIN 2 GM VIAL ONE ×2 (19:41→21:21)
[2019-02-27] MEDS ORDERED: Sodium Chloride 0.9% 100 ML ONE (19:41)
--- NOTE | 2019-02-27 21:30 | CT ---
CT ABDOMEN AND PELVIS WITH IV CONTRAST: Indication: 68-year-old female with abdominal pain and elevated lactic acid with a history of appendectomy and hy sterectomy. Comparison: CT abdomen and pelvis, 10-03-18. FINDINGS: Within the region of segment 6 of the right hepatic lobe where there was a previously seen small hypo density there is now a 9.3 x 12.2 cm heterogeneously enhancing mass. The gallbladder is surgically absent. The intrahepatic and extrahepatic biliary ductal dilatation is stable. The pancreas, adrenal glands, and spleen appear within normal limits. Bilateral renal cysts are simil ar appearing. Infrarenal abdominal aortic aneurysm measuring 3.7 cm is similar appearing. Severe aortic iliac disease is stable with likely complete occlusion of the right common iliac artery and high grade stenosis of the proximal left common iliac artery. There is a moderate amount of retained stool within the colon. The lung bases are normal appearing. There is diffuse osteopenia. The thoracolumbar compression abnormality, specifically involving T10, L 1, L2, L3, L4 and L5 are similar appearing. IMPRESSION: 1. Interval development of a large heterogeneously enhancing mass involving the right hepatic lobe li jonas corresponds to small hypodense lesion previously seen in September 2018. Findings are suspicious for a very large metastatic lesion versus primary hepatic malignancy. 2. Stable infrarenal abdominal aortic aneurysm measuring 3.7 cm. 3. Bilateral renal cysts. 4. Multilevel compression abnormalities of the thoracolumbar spine. 5. Extensive atherosclerotic disease involving the abdominal pelvic vasculature with suspected comple te occlusion of the right common iliac artery with high grade stenosis involving the left common rigo c artery. Extensive vascular calcifications are seen involving the celiac and SMA origins as well as the renal artery origins bilaterally. POS: BH
[2019-02-27 22:19] LABS: Lactic Acid 6.2 mmol/L (0.5-2.2)
[2019-02-27] MEDS ORDERED: PROVENTIL INHALER 6.7 G (200 INHALATIONS) INH PRN (23:15)
[2019-02-28] MEDS: Mometasone/Formoterol 120 PUFF INHALER INH SCH ×2 (05:58→19:45)
[2019-02-28] MEDS ORDERED: Vancomycin HCl 1 GM in Premix Bag 1 BAG IVPB SCH (07:30)
[2019-02-28] MEDS ORDERED: Lisinopril 10 MG TAB PO SCH (09:00)
[2019-02-28] MEDS: cefTRIAXone\\ROCEPHIN 2 GM in Sodium Chloride 0.9% 100 ML IVPB SCH (09:38)
[2019-02-28] MEDS: Escitalopram Oxalate 20 mg Tablet PO SCH (09:39)
[2019-02-28] MEDS: Potassium Chloride 20 MEQ TAB PO SCH (09:39)
[2019-02-28] MEDS: Carvedilol 3.125 MG TAB PO SCH ×2 (09:39→17:27)
[2019-02-28] MEDS: Furosemide 40 MG TAB PO SCH ×2 (09:39→14:58)
[2019-02-28] MEDS: busPIRone HCl 5 MG TAB PO SCH ×3 (09:39→19:56)
[2019-02-28] MEDS: Amlodipine 5 MG TAB PO SCH (09:40)
[2019-02-28] MEDS: Aspirin 81 mg Enteric Coated Tablet PO SCH (09:42)
[2019-02-28 11:26] LABS: Lactic Acid 3.8 mmol/L (0.5-2.2)
[2019-02-28] MEDS: Sodium Chloride 0.9% 500 ML IV SCH ×2 (12:47→14:53)
--- NOTE | 2019-02-28 16:19 | HP ---
CHIEF COMPLAINT: Shortness of breath, weakness, and abdominal pain. HISTORY OF PRESENT ILLNESS: Sharonda is a 68-year-old female with past medical history of end-stage COPD, hypertension, diabetes, came in because of worsening shortness of breath and also feeling very weak and has some abdominal discomfort going on for few days. The patient uses CPAP at home. The patient did not have any chest pain. No nausea or vomiting. No headache or dizziness. The patient called EMS, patient improved with CPAP. She was brought in mainly for her weakness and tiredness and abdominal discomfort. In the ER, the patient was evaluated and found to have elevated lactic acid with no clear-cut etiology. The patient received ceftriaxone and vancomycin in the ER. She is being admitted for further evaluation for her weakness, lactic acidosis, and abdominal discomfort. PAST MEDICAL HISTORY: 1. End-stage COPD, on home oxygen. 2. Chronic anemia. 3. Coronary artery disease, status post CABG. 4. Hypertension. 5. History of anxiety disorder. 6. 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 PAST SURGICAL HISTORY: Status post CABG. CURRENT MEDICATIONS: The patient is on: 1. DuoNeb q.i.d. 2. Amlodipine 5 mg daily. 3. Aspirin 81 mg daily. 4. Pravastatin 40 mg daily. 5. Symbicort inhaler 160/4.5 two puffs b.i.d. 6. BuSpar 15 mg t.i.d. 7. Coreg 3.125 b.i.d. 8. Lexapro 20 mg daily. 9. Lasix 40 b.i.d. 10. KCl 20 mEq daily. 11. Singulair 10 mg daily. 12. Omeprazole 40 mg daily. 13. Lisinopril 20 mg b.i.d. 14. Ventolin inhaler p.r.n. ALLERGIES: LATEX AND PENICILLIN. FAMILY HISTORY: Nothing contributory. SOCIAL HISTORY: The patient lives with daughter. No history of alcohol intake. Smokes one pack a day. REVIEW OF SYSTEMS: CARDIOVASCULAR: No chest pain. Has shortness of breath. RESPIRATORY: Cough but no fever. GASTROINTESTINAL: Abdominal discomfort and pain. No nausea or vomiting. CENTRAL NERVOUS SYSTEM: No headache. No dizziness. PHYSICAL EXAMINATION: GENERAL: The patient is alert, awake, oriented x3. VITAL SIGNS: Temperature 98, pulse is 70, respirations 20, blood pressure 140/60. HEENT: Head is normocephalic and atraumatic. Pupils are equal and reactive. Nasopharynx is pale and dry. Hard and soft palate. No lesions. SKIN: Turgor decreased. NECK: Supple. No JVD. LUNGS: Breath sounds diminished bilaterally. Rhonchi is present. No wheezing. HEART: S1 and S2 is regular. ABDOMEN: Soft, diffusely tender. No guarding. No rigidity. Normal bowel sounds. RECTAL: Deferred. CENTRAL NERVOUS SYSTEM: No focal deficit. LABORATORY DATA: CBC shows WBC 10.7, hemoglobin 10.9, hematocrit 35, platelets 294. Metabolic panel; sodium 140, potassium 4.5, chloride 99, CO2 of 27, glucose 195. Lactic acid level was 6 and repeat one was 6.2. Chest x-ray no focal consolidation. CT of the abdomen and pelvis, there is interval development of a large enhancing mass in the right hepatic lobe, metastatic lesion versus primary hepatic malignancy. Stable infrarenal abdominal aortic aneurysm. There is also multilevel compression abnormality in thoracolumbar spine and there is extensive atherosclerotic disease involving abdominal pelvic vasculature with common iliac artery and also left common iliac artery. There is extensive vascular calcification in all celiac and SMA origins as well and renal artery origins bilaterally. ASSESSMENT: 1. Generalized weakness. 2. Abdominal pain, possibly due to hepatic mass and also possibly due to extensive atherosclerotic disease involving abdominal pelvic vasculature. 3. Lactic acidosis. 4. End-stage chronic obstructive pulmonary disease. 5. Chronic anemia. 6. Coronary artery disease, status post coronary artery bypass graft. 7. Hypertension. 8. Anxiety disorder. PLAN: 1. Vital signs q.4 hours. 2. Activity as tolerated. 3. Allergies: Latex and penicillin. 4. Hep-Lock. 5. Diet is cardiac. 6. Repeat lactic acid level. 7. GI consult regarding abdominal pain and the hepatic mass. 8. Ceftriaxone 2 g daily IV piggyback. 9. Continue other home medications. 10. Oxygen via nasal cannula 2 L. 11. We will repeat labs in the morning. Job ID: [id number]
[2019-02-28] MEDS: Montelukast Sodium 10 mg Tablet PO SCH (19:57)
--- NOTE | 2019-03-01 03:11 | CON ---
DATE OF CONSULTATION: 02/28/2019 CHIEF COMPLAINT: Abdominal pain. HISTORY OF PRESENT ILLNESS: Ms. Mena is a 68-year-old woman who was admitted to the hospital on 02/05/2019 with shortness of breath and cough. She was diagnosed with pneumonia and treated with antibiotics. She has COPD, on oxygen and has been treated with prednisone for that. She has had right-sided to left lower abdominal pain for months. This abdominal pain worsened over the last couple of weeks and she came to the emergency room again on 02/27/2019 for further care. She has had no nausea, vomiting, diarrhea, constipation, or blood in the stool. She feels full after eating just a few bites of food. She has not had weight loss, has actually gained several pounds since she went to live with her daughter. She had a CT scan of the abdomen and pelvis for evaluation of the abdominal pain yesterday, which showed a large hepatic mass. GI was consulted to evaluate. She complains a pressure-like abdominal pain that comes and goes for hours at a time throughout the day. She was evaluated by GI back in September 2018 for abdominal pain at that time. Upper and lower endoscopy were initially recommended; however, she was ultimately determined to be unable to proceed with those procedures due to her severe lung disease. She was also noted to be anemic at that time with low iron, normal TIBC, and low-normal ferritin at 29. When she was admitted to this hospital stay she was found to have lactic acidosis and high white blood cell count that did improve with antibiotics and IV fluids. PAST MEDICAL HISTORY: End-stage COPD on home oxygen, anemia with a component of iron deficiency, coronary artery disease, hypertension, history of celiac and superior mesenteric artery stenosis. PAST SURGICAL HISTORY: Coronary artery bypass graft. FAMILY HISTORY: Negative for GI malignancy. SOCIAL HISTORY: She has no alcohol intake, has a history of smoking a pack a day. No drugs. ALLERGIES: LATEX AND PENICILLIN. MEDICATIONS: Prior to admission; 1. DuoNeb. 2. Amlodipine. 3. Aspirin. 4. Pravastatin. 5. Symbicort. 6. BuSpar. 7. Coreg. 8. Lexapro. 9. Lasix. 10. Potassium. 11. Singulair. 12. Omeprazole. 13. Lisinopril. 14. Ventolin. REVIEW OF SYSTEMS: Negative x10 systems reviewed except just stated in the history of present illness. PHYSICAL EXAMINATION: VITAL SIGNS: Temperature 98.2, pulse 88, blood pressure 92/54. GENERAL: She is in no acute distress. Alert and oriented x3. HEENT: Eyes have no scleral icterus. Oropharynx is clear without lesions. No cervical or supraclavicular lymphadenopathy. LUNGS: Clear to auscultation bilaterally. She is tachypneic. HEART: Regular rate and rhythm without murmur. ABDOMEN: Soft. She is tender in the right abdomen and midline and mildly distended. Bowel sounds are present. EXTREMITIES: No lower extremity edema. She has bruising on her arms and chest. LABORATORY DATA: White blood cell count was 20.9 back on February 05. White count on presentation this hospital stay is 10.7. Her hemoglobin is 10.9, platelets 294. Creatinine 1.32, AST 42, ALT 42, alkaline phosphatase 201, albumin 3.5. Lactic acid was 6.2 last night, it is 3.8 today. IMPRESSION: 1. Liver mass by CT scan. I reviewed this with Radiology. This is a low-density lesion that is multiloculated. It is rapidly increased in size. There was an indeterminate 1 cm lesion back in September, which now in the same area, this lesion measures 12 cm x 9.3 cm. There is no known primary cancer otherwise. There is no evidence of cirrhosis to indicate that this should be a primary liver cancer. She did have lymphoma 20 years ago, but this does not have an appearance of lymphoma. Metastatic disease would be unusual to have such a single large lesion without other more diffuse lesions. This certainly could be an abscess with her recurrent admissions with pneumonia and lactic acidosis and previous high white count and immunosuppression with steroids, and is multiloculated and drainage and it does not appear liquified and this is unlikely to respond to drainage at this stage. RECOMMENDATIONS: I will order a tagged white blood cell nuclear scan to help differentiate if this is an abscess or not. I will send an alpha-fetoprotein and CEA level as well. If these studies come back negative, then liver biopsy is likely the next step. We will check an Entamoeba histolytica antigen, however, there is a low suspicion for amebic abscess. Job ID: [id number]
[2019-03-01 06:49] LABS: #Basophils 0.1 thou/uL (0.0-0.2); #Eosinphils 0.1 thou/uL (0.0-0.7); #Lymphocytes 1.8 thou/uL (1.20-3.40); #Monocytes 0.7 thou/uL (0.11-0.59); #Neutrophils 6.5 thou/uL (1.40-6.50); %Basophils 0.8 % (0.0-1.0); %Eosinophils 0.6 % (0.0-10.0); %Lymphocytes 20.1 % (21.0-51.0); %Monocytes 7.3 % (0.0-10.0); %Neutrophils 71.2 % (42.0-75.0); Mean Corpuscular HGB CONC 30.9 g/dL (32.0-36.0); Mean Corpuscular Volume 84.3 fL (78.0-98.0); Mean Platelet Volume 8.3 fL (7.4-10.4); Platelet Count 274 thou/uL (130-400); RBC Distribution Width 21.2 % (11.5-14.5); Red Blood Cell (RBC) Count 3.85 mill/uL (4.20-5.40); White Blood Cell (WBC) Count 9.1 thou/uL (4.8-10.8)
[2019-03-01 07:07] LABS: Lactic Acid 2.1 mmol/L (0.5-2.2)
[2019-03-01 07:13] LABS: ALT (SGPT) 43 U/L (8-55); AST (SGOT) 56 U/L (5-34); Alkaline Phosphatase 199 U/L (40-150); Anion Gap 14 mmol/L (10-20); BUN (Urea Nitrogen) 23 mg/dL (9.8-20.1); Bilirubin, Total 0.5 mg/dL (0.2-1.2); Calc. Creatinine Clearance 57 mL/min (70-130); Calcium 8.5 mg/dL (7.8-10.44); Carbon Dioxide 30 mmol/L (23-31); Chloride 100 mmol/L (98-107); Estimated GFR-MDRD 88; Globulin 2.5 g/dL (2.4-3.5); Glucose 69 mg/dL (80-115); Potassium 3.7 mmol/L (3.5-5.1); Protein, Total 5.5 g/dL (6.0-8.3); Sodium 140 mmol/L (136-145)
[2019-03-01] MEDS: Mometasone/Formoterol 120 PUFF INHALER INH SCH ×2 (08:05→19:30)
[2019-03-01] MEDS: Potassium Chloride 20 MEQ TAB PO SCH (08:32)
[2019-03-01] MEDS: Carvedilol 3.125 MG TAB PO SCH ×2 (08:32→22:16)
[2019-03-01] MEDS: Amlodipine 5 MG TAB PO SCH (08:32)
[2019-03-01] MEDS: Escitalopram Oxalate 20 mg Tablet PO SCH (08:33)
[2019-03-01] MEDS: cefTRIAXone\\ROCEPHIN 2 GM in Sodium Chloride 0.9% 100 ML IVPB SCH (08:33)
[2019-03-01] MEDS: Furosemide 40 MG TAB PO SCH ×2 (08:33→16:21)
[2019-03-01] MEDS: busPIRone HCl 5 MG TAB PO SCH ×3 (08:33→20:22)
[2019-03-01] MEDS: Aspirin 81 mg Enteric Coated Tablet PO SCH (08:33)
[2019-03-01 12:35] LABS: Prothrombin Time 13.2 SEC (12.0-14.7)
[2019-03-01 12:41] LABS: PTT 18.4 SEC (22.9-36.1)
--- NOTE | 2019-03-01 13:23 | PQF ---
FLORES HAYDEN VENKAT R MD [id number] CLINICAL DOCUMENTATION IMPROVEMENT CLARIFICATION FORM: ICD-10 Updated PLEASE DO AN ADDENDUM TO THE PROGRESS NOTE WITH ANY DOCUMENTATION UPDATES OR ADDITIONS AND CARRY THROUGH TO DC SUMMARY. THANK YOU. DATE: 03/01/19 03/02/2019 ATTN:DR. Thony SMITH/ Reanna WAGNER Please exercise your independent, professional judgment in responding to the clarification form. Clinical indicators are provided on the bottom of this form for your review. Please check appropriate box(s): [ ] Acute Respiratory Failure: [ ] with Hypoxia[ ] with Hypercapnia [ ] Acute On Chronic Respiratory Failure: [ ] with Hypoxia [ ] with Hypercapnia [ ] Other diagnosis [ X ] Unable to determine I did not admit this patient.Psease send to admitting doctor In addition, please specify: Present on Admission (POA): [ X] Yes [ ] No [ X ] Unable to determine For continuity of documentation, please document condition throughout progress notes and discharge summary. Thank You. CLINICAL INDICATORS - SIGNS / SYMPTOMS / LABS 02/27 ED: PT PRESETS TO ED WITH COMPLAINTS OF SHORTNESS OF BREATH, EMS REPORTS THAT PT IMPROVED WITH THEIR CPAP. 02/27 ED VITAL SIGNS: RESP 22-32, 94% CPAP> 100% ON 3L/NC, 02/28 H & P (SARAH) REVIEW OF SYSTEMS: CARDIOVASCULAR- HAS SHORTNESS OF BREATH 02/28 CONSULT (KIM) PHYSICAL EXAMINATION LUNGS: SHE IS TACHYPNEIC RISK: HX OF TOBACCO ABUSE HX OF COPD HX OF HOME CPAP USE TREATMENTS: O2 THERAPY (02/27-PRESENT) RESPIRATORY TREATMENTS (02/28-PRESENT) THANK YOU TONE (This form is maintained as a part of the permanent medical record) 2014 [employer]. All Rights Reserved ANDREW [email or web address] [phone] MARIBEL
[2019-03-01] MEDS ORDERED: Midazolam HCl 2 mg/2 ml Vial ONE (14:08)
[2019-03-01] MEDS ORDERED: Fentanyl 100 MCG/2 ML VIAL ONE (14:08)
[2019-03-01] MEDS ORDERED: Sodium Bicarbonate 2.5 MEQ/5 ML VIAL ONE (14:47)
[2019-03-01] MEDS: metroNIDAZOLE 500 MG in Premix Bag 1 BAG IVPB SCH ×2 (16:07→20:22)
--- NOTE | 2019-03-01 16:19 | CT ---
CT Liver Perc Biopsy CT GUIDED RIGHT HEPATIC LOBE BIOPSY: CLINICAL HISTORY: Patient with large heterogeneous mass with associated cystic areas within the righ t hepatic lobe. Differential considerations were hepatic abscess collection versus a hepatic mass. PROCEDURE: Informed consent was obtained and the patient was placed in right anterior oblique position on the CT scan table.. The patient's skin was prepped and draped in a standard sterile fashion and topical anesthesia with buffered 1% lidocaine was performed. A 22-gauge spinal needle was advanced into the collection. Approximately 5 mL of straw-colored fluid was aspirated. A second 22-gauge spinal needle was advanced into the more solid portion the mass, and fine-needle aspiration was obtained. However, this did not yield adequate material. Each time, no purulent material was aspirated. After a small skin incision was made, an 17-gauge guide needle-was advanced into the mass. Utilizing coaxial technique, an 18-gauge core biopsy needle was pl aced, and a total of 3 core biopsy specimens were obtained. However, the initial specimen only yielded return of gelatinous material from the needle. A small amount of tissue was obtained with the additional 2 biopsy specimens. Initial pathology report did yield atypical cells. Again, after biopsy with a larger needle, no purulent fluid was obtained. The needle was removed, and hemostasis was achieved with direct pressure. Limited noncontrast CT scan was obtained through the upper abdomen after biopsy. No unexpected procedural complications were present. Patient was transferred to the hospital floor in stable condition. IMPRESSION: Technically successful percutaneous right hepatic lobe mass fine-needle aspiration and biopsy. Pathology results are pending.
[2019-03-01] MEDS: traMADol HCl 50 MG TAB PO PRN (17:01)
--- NOTE | 2019-03-01 19:16 | PRG ---
DATE OF SERVICE: 03/01/2019 SUBJECTIVE: Ms. Mena denies any new pain today. She had a liver biopsy earlier today. OBJECTIVE: VITAL SIGNS: T-max 100, T-current 98, pulse 93, and blood pressure 192/54 to 104/52. SKIN: The biopsy site is nontender with no hematoma or bleeding. LABORATORY DATA: Labs today; white count 9.1, hemoglobin 10, and platelet count 274. INR 1. ASSESSMENT: 1. Right liver mass. I do not think this is the same lesion that was seen on her CAT scan in 2017. There is a remarkable growth in a short period of time for malignancy, although it is possible. The liver lesion has been biopsied today, we will await for that result. 2. Severe chronic obstructive pulmonary disease. RECOMMENDATIONS: 1. Await liver biopsy. 2. In addition to CEA that was checked. We will go ahead and check an alpha fetoprotein and Dr. Rai's evaluation is pending. If those are negative, we consider CA-99. We will await biopsy. Job ID: [id number]
[2019-03-01] MEDS: Montelukast Sodium 10 mg Tablet PO SCH (20:22)
--- NOTE | 2019-03-02 00:19 | CON ---
DATE OF CONSULTATION: 03/01/2019 REASON FOR CONSULTATION: Liver abnormalities. HISTORY OF PRESENT ILLNESS: This is a 68-year-old whom I had seen in September last year when she presented with a history of advanced COPD, O2 dependent and vomiting as well as diarrhea. She did have evidence of enterocolitis on abdomen CT. The C diff was negative. 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 She was discharged on omeprazole, Lipitor, Lexapro, aspirin, Ventolin, prednisone, lisinopril, BuSpar. She was readmitted in January 2019 with chest pain with a negative stress test, then at the end of January, she was in the hospital with respiratory failure. She had some left shoulder pain and then in February again respiratory failure and had "pneumonia" in right lung. Cultures have been all negative except for one blood culture with bacillus, likely a contaminant. At this time, she comes in with worsening dyspnea and abdominal pain for the past few days. She had an elevated lactic acid. A CT of the abdomen showed a large enhancing mass right hepatic lobe. Radiology performed guided aspirate and about 5 mL of straw-colored fluid was aspirated. There was some gelatinous material in one of the sample submitted, but initial pathology yielded some atypical cells. Again, no purulent fluid was obtained. Previous imaging was done in September and she had fluid throughout the colon, but there is an indeterminate right lobe hepatic lesion at that time. It was about 11 mm within the right lobe of the liver. Currently, she is awake. She appears chronically ill, has cushingoid features. She denies any headaches. No visual symptoms. Mild abdominal pain, mild dyspnea. A little bit of cough. No sputum production. She has moderate low back pain and no genitourinary symptoms. PAST MEDICAL HISTORY: Includes medical history includes hypertension, coronary disease, COPD on steroids, lymphoma in remission after treatment with chemotherapy through [facility], gastric ulcer, episode of gastroenteritis, multiple admissions for respiratory decompensation. PAST SURGICAL HISTORY: Bypass graft surgery, cholecystitis and cholecystectomy. SOCIAL HISTORY: Former smoker. ALLERGIES: GABAPENTIN, LATEX, PENICILLIN. FAMILY HISTORY: Noncontributory. CURRENT MEDICATIONS: 1. DuoNeb. 2. Norvasc. 3. Ecotrin. 4. BuSpar. 5. Coreg. 6. Ceftriaxone. 7. Lasix. 8. Metronidazole. PHYSICAL EXAMINATION: VITAL SIGNS: T-max 100, BP 104/52, pulse 96, respirations 16, 02 saturation 96% on 3 L nasal cannula. SKIN: She has a few areas of excoriation in the gluteal regions and bruising in the upper extremities and face, particularly left periorbital region, peripheral IV access. She is voiding in the diaper. NECK: No lymphadenopathy. Neck is supple. No jugular vein distention. HEENT: Ocular movements conjugate, quite a few missing teeth. Oral mucosa normal otherwise. LUNGS: Diminished breath sounds, faint wheezing. HEART: S1-S2, diminished heart sounds. Soft aortic murmur, regular rate. ABDOMEN: Moderately distended, mildly tender right upper quadrant. No bladder distention. Muscle wasting noted. EXTREMITIES: Lower extremities pulses 1+ in dorsalis pedis. No edema. Moves all extremities. PSYCHIATRIC: She is awake, oriented, follows commands. Speech is normal. LABORATORY DATA: White cell count 10.7, hemoglobin 10.9, MCV 84, platelets 294, and 89% neutrophils. INR 1.0, sodium 140, creatinine 0.78, AST 56, ALT 43, alkaline phosphatase 199, albumin 3.0. CEA was 6.08, this is just a little bit elevated. Urinalysis negative. The microbiology from the specimen is pending at this time. The abdomen and pelvis CT with large heterogeneously enhancing mass right hepatic lobe. This is suspicious for a very large metastatic lesion versus primary hepatic malignancy. ASSESSMENT: 1. Chronic obstructive pulmonary disease with oxygen dependency and corticosteroid use. 2. Progressive enlargement of hepatic lesion of the right lobe, which was present since September last year, status post aspirate pending microbiology and pathology evaluation. DISCUSSION: We will have to wait on the results of the pathology and micro evaluation to decide on treatment course. I have submitted Entamoeba histolytica antibody test. Evidently, the cytology will probably be diagnostic. If we have a growth in the cultures, then we will treat as a liver abscess for a protracted period of time. Job ID: [id number]
[2019-03-02] MEDS: metroNIDAZOLE 500 MG in Premix Bag 1 BAG IVPB SCH ×3 (05:16→21:54)
[2019-03-02] MEDS: Mometasone/Formoterol 120 PUFF INHALER INH SCH ×2 (06:53→18:55)
[2019-03-02] MEDS: traMADol HCl 50 MG TAB PO PRN ×3 (07:33→21:53)
[2019-03-02] MEDS: Furosemide 40 MG TAB PO SCH ×2 (08:39→13:12)
[2019-03-02] MEDS: busPIRone HCl 5 MG TAB PO SCH ×3 (08:39→21:54)
[2019-03-02] MEDS: Aspirin 81 mg Enteric Coated Tablet PO SCH (08:39)
[2019-03-02] MEDS: Potassium Chloride 20 MEQ TAB PO SCH (08:39)
[2019-03-02] MEDS: Carvedilol 3.125 MG TAB PO SCH ×2 (08:39→21:54)
[2019-03-02] MEDS: Escitalopram Oxalate 20 mg Tablet PO SCH (08:39)
[2019-03-02] MEDS: Amlodipine 5 MG TAB PO SCH (08:39)
[2019-03-02] MEDS: cefTRIAXone\\ROCEPHIN 2 GM in Sodium Chloride 0.9% 100 ML IVPB SCH (08:39)
--- NOTE | 2019-03-02 14:21 | PRG ---
DATE OF SERVICE: 03/02/2019 SUBJECTIVE: Ms. Mena is without complaints. She is resting comfortably in bed. She states she has some soreness on the right side, where she had a liver biopsy. OBJECTIVE: VITAL SIGNS: Temperature is 99, pulse 96, and blood pressure 110/58. LUNGS: Clear. ABDOMEN: Soft and nontender. She has a very thin skin and stigmata. She has chronic steroid use. LABORATORY DATA: None today. Her CEA was 6.8. AFP was less than 2. Liver function test on 03/01 notable for AST and ALT of 56 and 143, alkaline phosphatase 199, and a total bilirubin of 0.5. Liver biopsy specimen is pending. ASSESSMENT: 1. Chronic obstructive pulmonary disease, oxygen dependency and corticosteroid use dependency. 2. Right hepatic lobe mass. In September, it was 11 mm and now it is a 12 cm with a very rapid growth for malignancy. RECOMMENDATIONS: Await pathology. Job ID: [id number]
--- NOTE | 2019-03-02 14:55 | PDOC.PN ---
- Subjective Encounter Start Date: 03/02/19 Encounter Start Time: 14:51 (Covering for Dr. oMrrissey) Subjective: c/o soreness to liver biopsy site -: feels anxious -: no N/V/D.no abd pain.no CP/SOB - Objective Resuscitation Status - Order Detail: 03/02/19 14:41 Resuscitation Status Routine Resuscitation Status: PRTL: Chem-Intubation Discussed with: confirmed with pt Additional comments: pt refusing chest compressions Vital Signs & Weight: Vital Signs (12 hours) Temp Pulse Resp BP Pulse Ox 03/02/19 14:07 90 16 03/02/19 11:45 99.0 F 96 14 110/58 L 93 L 03/02/19 10:56 100 16 03/02/19 08:39 96 03/02/19 07:34 97.8 F 100 22 H 132/61 96 03/02/19 06:53 100 14 03/02/19 03:56 99.6 F 96 18 108/56 L 91 L Weight Weight 116 lb 8 oz I&O: 03/01/19 03/02/19 03/03/19 06:59 06:59 06:59 Intake Total 1010 120 Balance 1010 120 Result Diagrams: 03/01/19 06:33 03/01/19 06:33 Phys Exam - Physical Examination anxious looking.uncomfortable HEENT: PERRLA, moist MMs, sclera anicteric, oral pharynx no lesions Neck: no nodes, no JVD, supple, full ROM Respiratory: no wheezing, no rales, no rhonchi, clear to auscultation bilateral Cardiovascular: RRR, no significant murmur Gastrointestinal: soft, non-tender, no distention, positive bowel sounds Musculoskeletal: no edema, pulses present Neurological: non-focal, normal sensation, moves all 4 limbs Skin: no rash Dx/Plan (1) Liver mass Code(s): R16.0 - HEPATOMEGALY, NOT ELSEWHERE CLASSIFIED Status: Acute Comment: s/p Bx. on empiric ABx. follow Path and Cx results.ID and GI following as well (2) HTN (hypertension) Code(s): I10 - ESSENTIAL (PRIMARY) HYPERTENSION Status: Chronic (3) COPD (chronic obstructive pulmonary disease) Status: Acute Comment: on IV steroids.stable. O2 prn,nebs (4) Chronic respiratory failure Code(s): J96.10 - CHRONIC RESPIRATORY FAILURE, UNSP W HYPOXIA OR HYPERCAPNIA Status: Chronic (5) CAD (coronary artery disease) Code(s): I25.10 - ATHSCL HEART DISEASE OF [place] CORONARY ARTERY W/O ANG PCTRS Status: Chronic Comment: on ASA,statin,BB. - Plan continue antibiotics, PT/OT, respiratory therapy, incentive spirometry, out of bed/ambulate, DVT proph w/SCDs supportive care. -: am labs -: rest as above -: code status discussed w Palliative care. entered as pt's wishes. -: No CPR but Intubation allowed * . Review of Systems - Review of Systems Constitutional: weakness, malaise. negative: fever, chills, sweats, other ENT: negative: Ear Pain, Ear Discharge, Nose Pain, Nose Discharge, Nose Congestion, Mouth Pain, Mouth Swelling, Throat Pain, Throat Swelling, Other Respiratory: negative: Cough, Dry, Shortness of Breath, Hemoptysis, SOB with Excertion, Pleuritic Pain, Sputum, Wheezing Cardiovascular: negative: chest pain, palpitations, orthopnea, paroxysmal nocturnal dyspnea, edema, light headedness, other Gastrointestinal: Other. negative: Nausea, Vomiting, Abdominal Pain, Diarrhea, Constipation, Melena, Hematochezia Genitourinary: negative: Dysuria, Frequency, Incontinence, Hematuria, Retention , Other Neurological: negative: Weakness, Numbness, Incoordination, Change in Speech, Confusion, Seizures, Other - Medications/Allergies Allergies/Adverse Reactions: Allergies Allergy/AdvReac Type Severity Reaction Status Date / Time Penicillins Allergy Intermediate Hives Verified 02/05/19 20:40 gabapentin Allergy Verified 02/05/19 20:40 latex Allergy Rash Verified 02/05/19 20:40 Medications: Current Medications Albuterol Sulfate (Proventil Hfa) 2 puff INH Q6H PRN PRN Reason: SOB &/or Wheezing Albuterol/Ipratropium (Duoneb) 3 ml NEB [id number] [facility] Last Admin: 03/02/19 14:07 Dose: 3 ml Amlodipine Besylate (Norvasc) 5 mg PO DAILY [facility] Last Admin: 03/02/19 08:39 Dose: 5 mg Aspirin (Ecotrin) 81 mg PO DAILY [facility] Last Admin: 03/02/19 08:39 Dose: 81 mg Buspirone HCl (Buspar) 15 mg PO TID [facility] Last Admin: 03/02/19 08:39 Dose: 15 mg Carvedilol (Coreg) 3.125 mg PO BID [facility] Last Admin: 03/02/19 08:39 Dose: 3.125 mg Escitalopram Oxalate (Lexapro) 20 mg PO DAILY [facility] Last Admin: 03/02/19 08:39 Dose: 20 mg Furosemide (Lasix) 40 mg PO 0900,1400 [facility] Last Admin: 03/02/19 13:12 Dose: 40 mg Ceftriaxone Sodium 2 gm/ (Sodium Chloride) 100 mls @ 200 mls/hr IVPB 0900 [facility] Last Admin: 03/02/19 08:39 Dose: 100 mls Metronidazole 500 mg/ Device 100 mls @ 100 mls/hr IVPB Q8HR [facility] Last Admin: 03/02/19 13:12 Dose: 100 mls Mometasone Furoate/Formoterol Fumar (Dulera 200 Mcg/5 Mcg Inhaler) 2 puff INH BID-RT [facility] Last Admin: 03/02/19 06:53 Dose: 2 puff Montelukast Sodium (Singulair) 10 mg PO QPM [facility] Last Admin: 03/01/19 20:22 Dose: 10 mg Pantoprazole Sodium (Protonix) 40 mg PO DAILY [facility] Last Admin: 03/02/19 08:39 Dose: 40 mg Potassium Chloride (K-Dur) 20 meq PO DAILY [facility] Last Admin: 03/02/19 08:39 Dose: 20 meq Tramadol HCl (Ultram) 50 mg PO Q6H PRN PRN Reason: Pain Last Admin: 03/02/19 13:17 Dose: 50 mg
[2019-03-02] MEDS: Montelukast Sodium 10 mg Tablet PO SCH (21:53)
[2019-03-03] MEDS: traMADol HCl 50 MG TAB PO PRN ×4 (02:43→22:00)
[2019-03-03] MEDS: metroNIDAZOLE 500 MG in Premix Bag 1 BAG IVPB SCH ×3 (05:14→21:53)
[2019-03-03] MEDS: Mometasone/Formoterol 120 PUFF INHALER INH SCH ×2 (06:55→18:59)
[2019-03-03 08:25] LABS: Anion Gap 15 mmol/L (10-20); BUN (Urea Nitrogen) 16 mg/dL (9.8-20.1); Calc. Creatinine Clearance 57 mL/min (70-130); Calcium 8.7 mg/dL (7.8-10.44); Carbon Dioxide 30 mmol/L (23-31); Chloride 95 mmol/L (98-107); Estimated GFR-MDRD 90; Glucose 88 mg/dL (80-115); Potassium 3.5 mmol/L (3.5-5.1); Sodium 136 mmol/L (136-145)
[2019-03-03 08:26] LABS: #Lymphocytes 1.5 thou/uL (1.20-3.40); #Monocytes 0.7 thou/uL (0.11-0.59); #Neutrophils 6.9 thou/uL (1.40-6.50); %Basophils 0.3 % (0.0-1.0); %Eosinophils 0.4 % (0.0-10.0); %Monocytes 7.9 % (0.0-10.0); %Neutrophils 75.5 % (42.0-75.0); Hemoglobin 9.8 g/dL (12.0-16.0); Mean Corpuscular HGB CONC 30.9 g/dL (32.0-36.0); Mean Corpuscular Hemoglobin 26.2 pg (27.0-31.0); Mean Corpuscular Volume 84.6 fL (78.0-98.0); Mean Platelet Volume 8.3 fL (7.4-10.4); Platelet Count 272 thou/uL (130-400); RBC Distribution Width 21.4 % (11.5-14.5); Red Blood Cell (RBC) Count 3.76 mill/uL (4.20-5.40); White Blood Cell (WBC) Count 9.2 thou/uL (4.8-10.8)
--- NOTE | 2019-03-03 09:08 | PDOC.PN ---
- Subjective Encounter Start Date: 03/03/19 Encounter Start Time: 10:50 Subjective: Patient still with some pain at liver biopsy site. No other complaints -: at this time. - Objective Resuscitation Status - Order Detail: 03/02/19 14:41 Resuscitation Status Routine Resuscitation Status: PRTL: Chem-Intubation Discussed with: confirmed with pt Additional comments: pt refusing chest compressions MAR Reviewed: Yes Vital Signs & Weight: Vital Signs (12 hours) Temp Pulse Resp BP Pulse Ox 03/03/19 07:26 98.4 F 91 16 126/58 L 94 L 03/03/19 06:55 88 24 H 99 03/03/19 06:44 99 03/03/19 06:39 88 24 H 99 03/03/19 04:00 98.4 F 91 20 112/56 L 92 L 03/03/19 02:30 90 20 93 L 03/03/19 00:00 95 118/57 L 03/02/19 22:25 93 20 94 L Weight Weight 117 lb 9.6 oz I&O: 03/02/19 03/03/19 03/04/19 06:59 06:59 06:59 Intake Total 120 1270 Balance 120 1270 Result Diagrams: 03/03/19 07:24 03/03/19 07:24 Phys Exam - Physical Examination Constitutional: NAD HEENT: moist MMs Respiratory: no wheezing, no rales, no rhonchi Cardiovascular: RRR Gastrointestinal: soft, positive bowel sounds biopsy site with bandaide, c/d/i Neurological: non-focal Psychiatric: normal affect, A&O x 3 Dx/Plan (1) Liver mass Code(s): R16.0 - HEPATOMEGALY, NOT ELSEWHERE CLASSIFIED Status: Acute Comment: s/p Bx. on empiric ABx. follow Path and Cx results.ID and GI following as well (2) COPD (chronic obstructive pulmonary disease) Status: Acute Comment: on IV steroids.stable. O2 prn,nebs (3) Chronic respiratory failure Code(s): J96.10 - CHRONIC RESPIRATORY FAILURE, UNSP W HYPOXIA OR HYPERCAPNIA Status: Chronic Qualifiers: Respiratory failure complication: hypoxia Qualified Code(s): J96.11 - Chronic respiratory failure with hypoxia (4) CAD (coronary artery disease) Code(s): I25.10 - ATHSCL HEART DISEASE OF [place] CORONARY ARTERY W/O ANG PCTRS Status: Chronic Comment: on ASA,statin,BB. (5) HTN (hypertension) Code(s): I10 - ESSENTIAL (PRIMARY) HYPERTENSION Status: Chronic - Plan cont current plan of care, continue antibiotics, PT/OT Awaiting biopsy results * . - Discharge Day Encounter end time: 11:00
[2019-03-03] MEDS: Aspirin 81 mg Enteric Coated Tablet PO SCH (09:30)
[2019-03-03] MEDS: Escitalopram Oxalate 20 mg Tablet PO SCH (09:30)
[2019-03-03] MEDS: cefTRIAXone\\ROCEPHIN 2 GM in Sodium Chloride 0.9% 100 ML IVPB SCH (09:30)
[2019-03-03] MEDS: Carvedilol 3.125 MG TAB PO SCH ×2 (09:30→21:52)
[2019-03-03] MEDS: Potassium Chloride 20 MEQ TAB PO SCH (09:30)
[2019-03-03] MEDS: Furosemide 40 MG TAB PO SCH ×2 (09:30→14:19)
[2019-03-03] MEDS: busPIRone HCl 5 MG TAB PO SCH ×3 (09:30→21:52)
[2019-03-03] MEDS: Amlodipine 5 MG TAB PO SCH (09:30)
--- NOTE | 2019-03-03 15:43 | PRG ---
DATE OF SERVICE: 03/03/2019 SUBJECTIVE: Ms. Mena still notes she is having some right upper quadrant pain. She has had no fever or chills. Pathology report is pending. I have called Pathology and they state they suspect it is a neoplasia, but they do not have any final diagnosis yet. The patient reports she has not had much of an appetite. OBJECTIVE: VITAL SIGNS: Temperature is 98.4. She had a T-max of 100.0 on the 24th. Pulse is 92, blood pressure is 127/59. ABDOMEN: Soft and nontender. Ribs are nontender. There is no bruising. LABORATORY DATA: White count 9.2, hemoglobin 9.8, platelet count 272, MCV 84. Sodium 136, potassium 3.5, BUN and creatinine 60 and 0.7. CEA was 6.08. AFP was 2.0. Entamoeba histolytica antibody is negative. RECOMMENDATIONS: Await pathology. It would be reasonable to check a CA 19-9. If this comes elevated in the thousands, that would be pretty suggestive of malignancies of biliary or pancreatic origin, anything in the 100s or less, probably is not very helpful. Dr. Rai will be covering for GI over the weekend. Please do not hesitate to call him if needed, otherwise I will follow up on Wednesday [QAMARKER] biopsy answer back yet. Job ID: [id number]
[2019-03-03] MEDS: Montelukast Sodium 10 mg Tablet PO SCH (21:52)
[2019-03-04] MEDS: traMADol HCl 50 MG TAB PO PRN ×2 (04:15→09:23)
[2019-03-04] MEDS: metroNIDAZOLE 500 MG in Premix Bag 1 BAG IVPB SCH ×3 (05:20→21:45)
[2019-03-04] MEDS: Mometasone/Formoterol 120 PUFF INHALER INH SCH ×2 (06:38→18:39)
[2019-03-04] MEDS: cefTRIAXone\\ROCEPHIN 2 GM in Sodium Chloride 0.9% 100 ML IVPB SCH (09:14)
[2019-03-04] MEDS: Amlodipine 5 MG TAB PO SCH (09:14)
[2019-03-04] MEDS: Furosemide 40 MG TAB PO SCH ×2 (09:15→13:29)
[2019-03-04] MEDS: Carvedilol 3.125 MG TAB PO SCH ×2 (09:15→20:44)
[2019-03-04] MEDS: Escitalopram Oxalate 20 mg Tablet PO SCH (09:15)
[2019-03-04] MEDS: Aspirin 81 mg Enteric Coated Tablet PO SCH (09:15)
[2019-03-04] MEDS: busPIRone HCl 5 MG TAB PO SCH ×3 (09:15→20:44)
[2019-03-04] MEDS: Potassium Chloride 20 MEQ TAB PO SCH (09:15)
[2019-03-04] MEDS: Ketorolac Tromethamine 30 MG/ML VIAL IVP PRN ×2 (13:27→20:45)
--- NOTE | 2019-03-04 16:09 | PDOC.PN ---
- Subjective Encounter Start Date: 03/04/19 Encounter Start Time: 08:00 Pt seen for followup re: liver mass. Says she feels okay. - Objective Resuscitation Status - Order Detail: 03/02/19 14:41 Resuscitation Status Routine Resuscitation Status: PRTL: Chem-Intubation Discussed with: confirmed with pt Additional comments: pt refusing chest compressions MAR Reviewed: Yes Vital Signs & Weight: Vital Signs (12 hours) Temp Pulse Resp BP Pulse Ox 03/04/19 15:48 98.2 F 85 18 97/52 L 95 03/04/19 13:26 90 20 96 03/04/19 12:24 98.7 F 82 20 120/54 L 94 L 03/04/19 09:39 89 20 95 03/04/19 09:05 97.9 F 94 19 138/60 92 L 03/04/19 06:38 93 20 97 03/04/19 06:33 93 20 97 Weight Weight 112 lb 4.8 oz I&O: 03/03/19 03/04/19 03/05/19 06:59 06:59 06:59 Intake Total 1270 1620 Balance 1270 1620 Result Diagrams: 03/03/19 07:24 03/03/19 07:24 EKG Reviewed by me: Yes (Tele: NSR) Phys Exam - Physical Examination Constitutional: NAD HEENT: moist MMs Neck: supple Respiratory: clear to auscultation bilateral Cardiovascular: RRR Gastrointestinal: soft Neurological: moves all 4 limbs Psychiatric: normal affect Dx/Plan (1) Liver mass Code(s): R16.0 - HEPATOMEGALY, NOT ELSEWHERE CLASSIFIED Status: Acute Comment: s/p Bx. on empiric ABx. (2) COPD (chronic obstructive pulmonary disease) Status: Chronic Comment: stable. O2 prn,nebs (3) CAD (coronary artery disease) Code(s): I25.10 - ATHSCL HEART DISEASE OF [place] CORONARY ARTERY W/O ANG PCTRS Status: Chronic Comment: on ASA,statin,BB. (4) HTN (hypertension) Code(s): I10 - ESSENTIAL (PRIMARY) HYPERTENSION Status: Chronic Comment: controlled - Plan * . Review of Systems - Review of Systems Respiratory: negative: Cough, Shortness of Breath, SOB with Excertion, Pleuritic Pain, Wheezing Cardiovascular: negative: chest pain, palpitations, orthopnea, paroxysmal nocturnal dyspnea, edema, light headedness - Medications/Allergies Allergies/Adverse Reactions: Allergies Allergy/AdvReac Type Severity Reaction Status Date / Time Penicillins Allergy Intermediate Hives Verified 02/05/19 20:40 gabapentin Allergy Verified 02/05/19 20:40 latex Allergy Rash Verified 02/05/19 20:40 Medications: Current Medications Albuterol Sulfate (Proventil Hfa) 2 puff INH Q6H PRN PRN Reason: SOB &/or Wheezing Albuterol/Ipratropium (Duoneb) 3 ml NEB [id number] [facility] Last Admin: 03/04/19 13:26 Dose: 3 ml Amlodipine Besylate (Norvasc) 5 mg PO DAILY [facility] Last Admin: 03/04/19 09:14 Dose: 5 mg Aspirin (Ecotrin) 81 mg PO DAILY [facility] Last Admin: 03/04/19 09:15 Dose: 81 mg Buspirone HCl (Buspar) 15 mg PO TID [facility] Last Admin: 03/04/19 14:42 Dose: 15 mg Carvedilol (Coreg) 3.125 mg PO BID [facility] Last Admin: 03/04/19 09:15 Dose: 3.125 mg Escitalopram Oxalate (Lexapro) 20 mg PO DAILY [facility] Last Admin: 03/04/19 09:15 Dose: 20 mg Furosemide (Lasix) 40 mg PO 0900,1400 [facility] Last Admin: 03/04/19 13:29 Dose: 40 mg Ceftriaxone Sodium 2 gm/ (Sodium Chloride) 100 mls @ 200 mls/hr IVPB 0900 [facility] Last Admin: 03/04/19 09:14 Dose: 100 mls Metronidazole 500 mg/ Device 100 mls @ 100 mls/hr IVPB Q8HR [facility] Last Admin: 03/04/19 13:29 Dose: 100 mls Ketorolac Tromethamine (Toradol) 15 mg IVP Q6H PRN PRN Reason: Mild-Moderate Pain (1-5) Stop: 03/09/19 10:29 Last Admin: 03/04/19 13:27 Dose: 15 mg Mometasone Furoate/Formoterol Fumar (Dulera 200 Mcg/5 Mcg Inhaler) 2 puff INH BID-RT [facility] Last Admin: 03/04/19 06:38 Dose: 2 puff Montelukast Sodium (Singulair) 10 mg PO QPM [facility] Last Admin: 03/03/19 21:52 Dose: 10 mg Pantoprazole Sodium (Protonix) 40 mg PO DAILY [facility] Last Admin: 03/04/19 09:15 Dose: 40 mg Potassium Chloride (K-Dur) 20 meq PO DAILY [facility] Last Admin: 03/04/19 09:15 Dose: 20 meq Tramadol HCl (Ultram) 50 mg PO Q6H PRN PRN Reason: Pain Last Admin: 03/04/19 09:23 Dose: 50 mg
[2019-03-04] MEDS: Montelukast Sodium 10 mg Tablet PO SCH (20:44)
[2019-03-05] MEDS: Ketorolac Tromethamine 30 MG/ML VIAL IVP PRN ×3 (04:52→20:17)
[2019-03-05] MEDS: metroNIDAZOLE 500 MG in Premix Bag 1 BAG IVPB SCH ×3 (05:00→21:33)
[2019-03-05] MEDS: Mometasone/Formoterol 120 PUFF INHALER INH SCH ×2 (05:42→18:41)
[2019-03-05] MEDS: cefTRIAXone\\ROCEPHIN 2 GM in Sodium Chloride 0.9% 100 ML IVPB SCH (09:13)
[2019-03-05] MEDS: Aspirin 81 mg Enteric Coated Tablet PO SCH (09:14)
[2019-03-05] MEDS: Potassium Chloride 20 MEQ TAB PO SCH (09:15)
[2019-03-05] MEDS: busPIRone HCl 5 MG TAB PO SCH ×3 (09:15→20:22)
[2019-03-05] MEDS: Escitalopram Oxalate 20 mg Tablet PO SCH (09:15)
[2019-03-05] MEDS: Carvedilol 3.125 MG TAB PO SCH ×2 (09:27→20:23)
[2019-03-05] MEDS: Amlodipine 5 MG TAB PO SCH (09:27)
[2019-03-05] MEDS: Furosemide 40 MG TAB PO SCH ×2 (09:29→13:18)
--- NOTE | 2019-03-05 13:07 | PDOC.PN ---
- Subjective Encounter Start Date: 03/05/19 Encounter Start Time: 07:40 Pt seen for followup re: liver mass. No complaints today. - Objective Resuscitation Status - Order Detail: 03/02/19 14:41 Resuscitation Status Routine Resuscitation Status: PRTL: Chem-Intubation Discussed with: confirmed with pt Additional comments: pt refusing chest compressions Vital Signs & Weight: Vital Signs (12 hours) Temp Pulse Resp BP Pulse Ox 03/05/19 12:29 98.1 F 105 H 22 H 125/56 L 95 03/05/19 09:30 81 16 94 L 03/05/19 07:04 97.6 F 84 20 95/54 L 97 03/05/19 05:42 85 16 95 03/05/19 05:40 85 16 95 03/05/19 03:56 97.9 F 82 18 119/55 L 94 L 03/05/19 01:53 86 16 96 Weight Weight 114 lb 1.6 oz I&O: 03/04/19 03/05/19 03/06/19 06:59 06:59 06:59 Intake Total 1620 1190 Balance 1620 1190 Result Diagrams: 03/03/19 07:24 03/03/19 07:24 Phys Exam - Physical Examination Constitutional: NAD HEENT: oral pharynx no lesions Neck: supple Respiratory: clear to auscultation bilateral Cardiovascular: RRR Gastrointestinal: soft Neurological: moves all 4 limbs Psychiatric: normal affect Dx/Plan (1) Liver mass Code(s): R16.0 - HEPATOMEGALY, NOT ELSEWHERE CLASSIFIED Status: Acute Comment: awaiting biopsy report, on empiric antibiotics (ceftriaxone, metronidazole) (2) COPD (chronic obstructive pulmonary disease) Status: Chronic Comment: stable. continue O2 prn,nebs (3) CAD (coronary artery disease) Code(s): I25.10 - ATHSCL HEART DISEASE OF [place] CORONARY ARTERY W/O ANG PCTRS Status: Chronic Comment: continue ASA,statin,BB. (4) HTN (hypertension) Code(s): I10 - ESSENTIAL (PRIMARY) HYPERTENSION Status: Chronic Comment: controlled - Plan * . Review of Systems - Review of Systems Respiratory: negative: Cough, Shortness of Breath, SOB with Excertion, Pleuritic Pain, Wheezing Cardiovascular: negative: chest pain, palpitations, orthopnea, paroxysmal nocturnal dyspnea, edema, light headedness Skin: negative: Rash, Lesions, [place], Bruising - Medications/Allergies Allergies/Adverse Reactions: Allergies Allergy/AdvReac Type Severity Reaction Status Date / Time Penicillins Allergy Intermediate Hives Verified 02/05/19 20:40 gabapentin Allergy Verified 02/05/19 20:40 latex Allergy Rash Verified 02/05/19 20:40 Medications: Current Medications Albuterol Sulfate (Proventil Hfa) 2 puff INH Q6H PRN PRN Reason: SOB &/or Wheezing Albuterol/Ipratropium (Duoneb) 3 ml NEB [id number] [facility] Last Admin: 03/05/19 13:26 Dose: 3 ml Amlodipine Besylate (Norvasc) 5 mg PO DAILY [facility] Last Admin: 03/05/19 09:27 Dose: Not Given Aspirin (Ecotrin) 81 mg PO DAILY [facility] Last Admin: 03/05/19 09:14 Dose: 81 mg Buspirone HCl (Buspar) 15 mg PO TID [facility] Last Admin: 03/05/19 13:17 Dose: 15 mg Carvedilol (Coreg) 3.125 mg PO BID [facility] Last Admin: 03/05/19 09:27 Dose: Not Given Escitalopram Oxalate (Lexapro) 20 mg PO DAILY [facility] Last Admin: 03/05/19 09:15 Dose: 20 mg Furosemide (Lasix) 40 mg PO 0900,1400 [facility] Last Admin: 03/05/19 13:18 Dose: 40 mg Ceftriaxone Sodium 2 gm/ (Sodium Chloride) 100 mls @ 200 mls/hr IVPB 0900 [facility] Last Admin: 03/05/19 09:13 Dose: 100 mls Metronidazole 500 mg/ Device 100 mls @ 100 mls/hr IVPB Q8HR [facility] Last Admin: 03/05/19 13:18 Dose: 100 mls Ketorolac Tromethamine (Toradol) 15 mg IVP Q6H PRN PRN Reason: Mild-Moderate Pain (1-5) Stop: 03/09/19 10:29 Last Admin: 03/05/19 13:19 Dose: 15 mg Mometasone Furoate/Formoterol Fumar (Dulera 200 Mcg/5 Mcg Inhaler) 2 puff INH BID-RT [facility] Last Admin: 03/05/19 05:42 Dose: 2 puff Montelukast Sodium (Singulair) 10 mg PO QPM [facility] Last Admin: 03/04/19 20:44 Dose: 10 mg Pantoprazole Sodium (Protonix) 40 mg PO DAILY [facility] Last Admin: 03/05/19 09:15 Dose: 40 mg Potassium Chloride (K-Dur) 20 meq PO DAILY [facility] Last Admin: 03/05/19 09:15 Dose: 20 meq Tramadol HCl (Ultram) 50 mg PO Q6H PRN PRN Reason: Pain Last Admin: 03/04/19 09:23 Dose: 50 mg
[2019-03-05] MEDS ORDERED: Sodium Chloride 0.9% 10 ML ONE (14:32)
[2019-03-05] MEDS: Montelukast Sodium 10 mg Tablet PO SCH (20:23)
[2019-03-06] MEDS: metroNIDAZOLE 500 MG in Premix Bag 1 BAG IVPB SCH ×3 (05:06→20:31)
[2019-03-06] MEDS: Ketorolac Tromethamine 30 MG/ML VIAL IVP PRN ×2 (05:08→15:37)
[2019-03-06] MEDS: Mometasone/Formoterol 120 PUFF INHALER INH SCH ×2 (06:59→19:15)
[2019-03-06] MEDS: Escitalopram Oxalate 20 mg Tablet PO SCH (09:11)
[2019-03-06] MEDS: Amlodipine 5 MG TAB PO SCH (09:11)
[2019-03-06] MEDS: Potassium Chloride 20 MEQ TAB PO SCH (09:11)
[2019-03-06] MEDS: Furosemide 40 MG TAB PO SCH ×2 (09:11→15:29)
[2019-03-06] MEDS: Aspirin 81 mg Enteric Coated Tablet PO SCH (09:11)
[2019-03-06] MEDS: Carvedilol 3.125 MG TAB PO SCH ×2 (09:11→20:31)
[2019-03-06] MEDS: traMADol HCl 50 MG TAB PO PRN ×2 (09:12→20:32)
[2019-03-06] MEDS: cefTRIAXone\\ROCEPHIN 2 GM in Sodium Chloride 0.9% 100 ML IVPB SCH (09:13)
[2019-03-06] MEDS: busPIRone HCl 5 MG TAB PO SCH ×3 (09:57→20:31)
--- NOTE | 2019-03-06 11:48 | PQF ---
FLORES HAYDEN VENKAT R MD [id number] CLINICAL DOCUMENTATION IMPROVEMENT CLARIFICATION FORM: ICD-10 Updated PLEASE DO AN ADDENDUM TO THE PROGRESS NOTE WITH ANY DOCUMENTATION UPDATES OR ADDITIONS AND CARRY THROUGH TO DC SUMMARY. THANK YOU. DATE: 03/01/19 , 03/07 ,03/08 ATTN:DR. Thony SMITH/ AMAN Please exercise your independent, professional judgment in responding to the clarification form. Clinical indicators are provided on the bottom of this form for your review. Please check appropriate box(s): [ ] Acute Respiratory Failure: [ ] with Hypoxia[ ] with Hypercapnia [ ] Hypoxia [ ] Other diagnosis [ ] Unable to determine In addition, please specify: Present on Admission (POA): [ ] Yes [ ] No [ ] Unable to determine For continuity of documentation, please document condition throughout progress notes and discharge summary. Thank You. CLINICAL INDICATORS - SIGNS / SYMPTOMS / LABS 02/27 ED: PT PRESETS TO ED WITH COMPLAINTS OF SHORTNESS OF BREATH, EMS REPORTS THAT PT IMPROVED WITH THEIR CPAP. 02/27 ED VITAL SIGNS: RESP 22-32, 94% CPAP> 100% ON 3L/NC, 02/28 H & P (SARAH) REVIEW OF SYSTEMS: CARDIOVASCULAR- HAS SHORTNESS OF BREATH 02/28 CONSULT (KIM) PHYSICAL EXAMINATION LUNGS: SHE IS TACHYPNEIC RISK: HX OF TOBACCO ABUSE HX OF COPD HX OF HOME CPAP USE TREATMENTS: O2 THERAPY (02/27-PRESENT) RESPIRATORY TREATMENTS (02/28-PRESENT) THANK YOU! TONE (This form is maintained as a part of the permanent medical record) 2014 [employer] All Rights Reserved [email or web address] [email or web address] [phone] [email or web address]
--- NOTE | 2019-03-06 16:21 | PDOC.PN ---
- Subjective Encounter Start Date: 03/06/19 Encounter Start Time: 08:00 Pt seen for followup re: liver mass. Denies chest pain or fevers. Occ pain at biopsy site. - Objective Resuscitation Status - Order Detail: 03/02/19 14:41 Resuscitation Status Routine Resuscitation Status: PRTL: Chem-Intubation Discussed with: confirmed with pt Additional comments: pt refusing chest compressions MAR Reviewed: Yes Vital Signs & Weight: Vital Signs (12 hours) Temp Pulse Pulse Pulse Resp BP BP 03/06/19 15:25 98.4 F 90 18 03/06/19 13:30 66 16 03/06/19 11:36 98.8 F 89 89 90 18 136/61 03/06/19 10:37 75 18 03/06/19 09:11 96 117/56 L 03/06/19 07:52 98.9 F 92 20 03/06/19 07:01 95 16 03/06/19 06:59 95 18 BP BP Pulse Ox Pulse Ox Pulse Ox 03/06/19 15:25 124/62 94 L 03/06/19 13:30 94 L 03/06/19 11:36 136/62 136/61 97 97 92 L 03/06/19 10:37 94 L 03/06/19 09:11 03/06/19 07:52 117/56 L 98 03/06/19 07:01 94 L 03/06/19 06:59 94 L Weight Weight 115 lb 3.2 oz I&O: 03/05/19 03/06/19 03/07/19 06:59 06:59 06:59 Intake Total 1190 1030 Balance 1190 1030 Result Diagrams: 03/03/19 07:24 03/03/19 07:24 EKG Reviewed by me: Yes (Tele: NSR) Phys Exam - Physical Examination Constitutional: NAD HEENT: moist MMs Neck: supple Respiratory: clear to auscultation bilateral Cardiovascular: RRR Gastrointestinal: soft Neurological: moves all 4 limbs Psychiatric: normal affect Dx/Plan (1) Liver mass Code(s): R16.0 - HEPATOMEGALY, NOT ELSEWHERE CLASSIFIED Status: Acute Comment: awaiting biopsy report (2) COPD (chronic obstructive pulmonary disease) Status: Chronic Comment: stable. continue O2 prn,nebs (3) CAD (coronary artery disease) Code(s): I25.10 - ATHSCL HEART DISEASE OF [place] CORONARY ARTERY W/O ANG PCTRS Status: Chronic Comment: continue ASA,statin,BB. (4) HTN (hypertension) Code(s): I10 - ESSENTIAL (PRIMARY) HYPERTENSION Status: Chronic Comment: controlled (5) Acute respiratory failure with hypoxia Code(s): J96.01 - ACUTE RESPIRATORY FAILURE WITH HYPOXIA Status: Resolved - Plan * . present on admission, secondary to COPD exacerbation Review of Systems - Review of Systems Constitutional: negative: fever, chills, sweats, weakness, malaise Cardiovascular: negative: chest pain, palpitations, orthopnea, paroxysmal nocturnal dyspnea, edema, light headedness - Medications/Allergies Allergies/Adverse Reactions: Allergies Allergy/AdvReac Type Severity Reaction Status Date / Time Penicillins Allergy Intermediate Hives Verified 02/05/19 20:40 gabapentin Allergy Verified 02/05/19 20:40 latex Allergy Rash Verified 02/05/19 20:40 Medications: Current Medications Albuterol Sulfate (Proventil Hfa) 2 puff INH Q6H PRN PRN Reason: SOB &/or Wheezing Albuterol/Ipratropium (Duoneb) 3 ml NEB [id number] [facility] Last Admin: 03/06/19 13:30 Dose: 3 ml Amlodipine Besylate (Norvasc) 5 mg PO DAILY [facility] Last Admin: 03/06/19 09:11 Dose: 5 mg Aspirin (Ecotrin) 81 mg PO DAILY [facility] Last Admin: 03/06/19 09:11 Dose: 81 mg Buspirone HCl (Buspar) 15 mg PO TID [facility] Last Admin: 03/06/19 15:29 Dose: 15 mg Carvedilol (Coreg) 3.125 mg PO BID [facility] Last Admin: 03/06/19 09:11 Dose: 3.125 mg Escitalopram Oxalate (Lexapro) 20 mg PO DAILY [facility] Last Admin: 03/06/19 09:11 Dose: 20 mg Furosemide (Lasix) 40 mg PO 0900,1400 [facility] Last Admin: 03/06/19 15:29 Dose: 40 mg Ceftriaxone Sodium 2 gm/ (Sodium Chloride) 100 mls @ 200 mls/hr IVPB 0900 [facility] Last Admin: 03/06/19 09:13 Dose: 100 mls Metronidazole 500 mg/ Device 100 mls @ 100 mls/hr IVPB Q8HR [facility] Last Admin: 03/06/19 15:29 Dose: 100 mls Ketorolac Tromethamine (Toradol) 15 mg IVP Q6H PRN PRN Reason: Mild-Moderate Pain (1-5) Stop: 03/09/19 10:29 Last Admin: 03/06/19 15:37 Dose: 15 mg Mometasone Furoate/Formoterol Fumar (Dulera 200 Mcg/5 Mcg Inhaler) 2 puff INH BID-RT [facility] Last Admin: 03/06/19 06:59 Dose: 2 puff Montelukast Sodium (Singulair) 10 mg PO QPM [facility] Last Admin: 03/05/19 20:23 Dose: 10 mg Pantoprazole Sodium (Protonix) 40 mg PO DAILY [facility] Last Admin: 03/06/19 09:13 Dose: 40 mg Potassium Chloride (K-Dur) 20 meq PO DAILY [facility] Last Admin: 03/06/19 09:11 Dose: 20 meq Tramadol HCl (Ultram) 50 mg PO Q6H PRN PRN Reason: Pain Last Admin: 03/06/19 09:12 Dose: 50 mg
[2019-03-06] MEDS: Montelukast Sodium 10 mg Tablet PO SCH (20:31)
[2019-03-07] MEDS: Ketorolac Tromethamine 30 MG/ML VIAL IVP PRN ×3 (02:24→20:51)
[2019-03-07] MEDS: traMADol HCl 50 MG TAB PO PRN ×2 (06:23→15:03)
[2019-03-07] MEDS: metroNIDAZOLE 500 MG in Premix Bag 1 BAG IVPB SCH ×3 (06:23→20:53)
[2019-03-07] MEDS: Mometasone/Formoterol 120 PUFF INHALER INH SCH ×2 (07:06→18:48)
[2019-03-07] MEDS: busPIRone HCl 5 MG TAB PO SCH ×3 (09:05→20:51)
[2019-03-07] MEDS: Carvedilol 3.125 MG TAB PO SCH ×2 (09:06→20:51)
[2019-03-07] MEDS: Furosemide 40 MG TAB PO SCH ×2 (09:06→14:39)
[2019-03-07] MEDS: Amlodipine 5 MG TAB PO SCH (09:06)
[2019-03-07] MEDS: Aspirin 81 mg Enteric Coated Tablet PO SCH (09:06)
[2019-03-07] MEDS: Potassium Chloride 20 MEQ TAB PO SCH (09:06)
[2019-03-07] MEDS: Escitalopram Oxalate 20 mg Tablet PO SCH (09:06)
--- NOTE | 2019-03-07 10:04 | PRG ---
DATE OF SERVICE: 03/06/2019 SUBJECTIVE: Ms. Mena still has some right-sided flank pain. Her pathology has come back. Pathologist felt the biopsy of the liver mass shows metastatic carcinoma with immunohistochemistry profile most supportive of squamous carcinoma. OBJECTIVE: VITAL SIGNS: Pulse 70s. Blood pressure 120s/70s. The patient is afebrile. GENERAL: She is resting comfortably in bed. ABDOMEN: Right flank shows no overt tenderness. No palpable mass. LABORATORY DATA: No labs. CA 19-9 was elevated at 254. ASSESSMENT: Large liver mass. This was not seen on CT on 10/03/2018. At that time, she did have a small 11 mm indeterminate hypodensity in the right lobe of the liver. It is really unclear if that is related to the now 12 cm mass seen on 02/27. There would be very rapid progression for a tumor. The radiologist, however, felt these were related. RECOMMENDATIONS: At this time, I would involve Oncology in her case. 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 With her severe chronic obstructive pulmonary disease, I am not sure that she is definitely not a surgical candidate, probably is not a candidate for chemotherapy, but we need to get them involved in her evaluation. Job ID: [id number]
--- NOTE | 2019-03-07 10:36 | CT ---
CT Chest W Con History: [Lung mass] Comparison: Chest radiograph February 27, 2019 Findings: Spiculated mass left upper lobe measures 14 mm in transverse dimension axial image 9 withi n the anterior segment left upper lobe. There are moderate bilateral pleural effusions. Hypodensity present left lobe of the thyroid measuring approximately 1.5 cm. Severe calcifications of the aorta. No aneurysmal dilatation. Likely occlusion of the celiac trunk. High-grade stenosis of the SMA. Centrally necrotic mass replaces the right lobe of the liver. There is abnormal hypodensity within the right lower lobe which is more hypodense than compressive at electasis would be expected. This is concerning for underlying mass. Multiple compression deformities of the thoracic spine including T6, T7, and T8 as well as T10. These . Many different phases of healing. No acute displaced rib fracture. Impression: 1. 14 mm left lower lobe spiculated mass concerning for malignancy. 2. Abnormal hypodensity posterior segment right lower lobe with an area of atelectasis is more hypode nse than round atelectasis would be expected. This is similar for underlying mass with adjacent pneumonitis. 3. Moderate bilateral layering pleural effusions. 4. Severe obstructive disease. 5. Numerous compression deformities of the thoracic spine. 5. Mild centrilobular emphysema.
[2019-03-07] MEDS: cefTRIAXone\\ROCEPHIN 2 GM in Sodium Chloride 0.9% 100 ML IVPB SCH (10:59)
--- NOTE | 2019-03-07 13:20 | PDOC.PN ---
- Subjective Encounter Start Date: 03/07/19 Encounter Start Time: 13:18 Pt seen for followup re: lung mass. Cough+, sputum+ - Objective Resuscitation Status - Order Detail: 03/02/19 14:41 Resuscitation Status Routine Resuscitation Status: PRTL: Chem-Intubation Discussed with: confirmed with pt Additional comments: pt refusing chest compressions MAR Reviewed: Yes Vital Signs & Weight: Vital Signs (12 hours) Temp Pulse Resp BP Pulse Ox 03/07/19 11:50 97.5 F L 93 18 116/56 L 93 L 03/07/19 08:40 98 F 86 18 115/59 L 92 L 03/07/19 07:07 70 14 03/07/19 04:00 89 124/76 Weight Weight 115 lb 3.2 oz I&O: 03/06/19 03/07/19 03/08/19 06:59 06:59 06:59 Intake Total 1030 1175 Balance 1030 1175 Result Diagrams: 03/03/19 07:24 03/03/19 07:24 EKG Reviewed by me: Yes (Tele: NSR) Phys Exam - Physical Examination Constitutional: NAD HEENT: moist MMs Neck: supple Respiratory: clear to auscultation bilateral Cardiovascular: RRR Gastrointestinal: soft Neurological: moves all 4 limbs Psychiatric: normal affect Dx/Plan (1) Lung mass Code(s): R91.8 - OTHER NONSPECIFIC ABNORMAL FINDING OF LUNG FIELD Status: Acute Comment: likely metastatic adenoCA. Oncology consulted (2) Liver metastasis Code(s): C78.7 - SECONDARY MALIG NEOPLASM OF LIVER AND INTRAHEPATIC BILE DUCT Status: Acute Comment: likely mets from lung adenoCA (3) Postobstructive pneumonia Code(s): J18.9 - PNEUMONIA, UNSPECIFIED ORGANISM Status: Acute Comment: continue ceftriazone, metronidazole (4) COPD (chronic obstructive pulmonary disease) Status: Chronic Comment: continue O2 prn,nebs (5) CAD (coronary artery disease) Code(s): I25.10 - ATHSCL HEART DISEASE OF [place] CORONARY ARTERY W/O ANG PCTRS Status: Chronic Comment: on ASA,statin,BB. (6) HTN (hypertension) Code(s): I10 - ESSENTIAL (PRIMARY) HYPERTENSION Status: Chronic Comment: controlled (7) Acute respiratory failure with hypoxia Code(s): J96.01 - ACUTE RESPIRATORY FAILURE WITH HYPOXIA Status: Resolved - Plan * . Review of Systems - Review of Systems Constitutional: negative: fever, chills, sweats, weakness, malaise Respiratory: Cough, Sputum. negative: Dry, Shortness of Breath, Hemoptysis, SOB with Excertion, Pleuritic Pain, Wheezing - Medications/Allergies Allergies/Adverse Reactions: Allergies Allergy/AdvReac Type Severity Reaction Status Date / Time Penicillins Allergy Intermediate Hives Verified 02/05/19 20:40 gabapentin Allergy Verified 02/05/19 20:40 latex Allergy Rash Verified 02/05/19 20:40 Medications: Current Medications Albuterol Sulfate (Proventil Hfa) 2 puff INH Q6H PRN PRN Reason: SOB &/or Wheezing Albuterol/Ipratropium (Duoneb) 3 ml NEB [id number] Last Admin: 03/07/19 10:07 Dose: Not Given Amlodipine Besylate (Norvasc) 5 mg PO DAILY [facility] Last Admin: 03/07/19 09:06 Dose: 5 mg Aspirin (Ecotrin) 81 mg PO DAILY [facility] Last Admin: 03/07/19 09:06 Dose: 81 mg Buspirone HCl (Buspar) 15 mg PO TID [facility] Last Admin: 03/07/19 09:05 Dose: 15 mg Carvedilol (Coreg) 3.125 mg PO BID [facility] Last Admin: 03/07/19 09:06 Dose: 3.125 mg Escitalopram Oxalate (Lexapro) 20 mg PO DAILY [facility] Last Admin: 03/07/19 09:06 Dose: 20 mg Furosemide (Lasix) 40 mg PO 0900,1400 [facility] Last Admin: 03/07/19 09:06 Dose: 40 mg Ceftriaxone Sodium 2 gm/ (Sodium Chloride) 100 mls @ 200 mls/hr IVPB 0900 [facility] Last Admin: 03/07/19 10:59 Dose: 100 mls Metronidazole 500 mg/ Device 100 mls @ 100 mls/hr IVPB Q8HR [facility] Last Admin: 03/07/19 06:23 Dose: 100 mls Ketorolac Tromethamine (Toradol) 15 mg IVP Q6H PRN PRN Reason: Mild-Moderate Pain (1-5) Stop: 03/09/19 10:29 Last Admin: 03/07/19 11:43 Dose: 15 mg Mometasone Furoate/Formoterol Fumar (Dulera 200 Mcg/5 Mcg Inhaler) 2 puff INH BID-RT [facility] Last Admin: 03/07/19 07:06 Dose: 2 puff Montelukast Sodium (Singulair) 10 mg PO QPM [facility] Last Admin: 03/06/19 20:31 Dose: 10 mg Pantoprazole Sodium (Protonix) 40 mg PO DAILY [facility] Last Admin: 03/07/19 09:06 Dose: 40 mg Potassium Chloride (K-Dur) 20 meq PO DAILY [facility] Last Admin: 03/07/19 09:06 Dose: 20 meq Tramadol HCl (Ultram) 50 mg PO Q6H PRN PRN Reason: Pain Last Admin: 03/07/19 06:23 Dose: 50 mg
[2019-03-07] MEDS ORDERED: Iopamidol 370 76% 100 ML VIAL ONE (14:19)
--- NOTE | 2019-03-07 17:47 | PRG ---
DATE OF SERVICE: 03/07/2019 SUBJECTIVE: Ms. Mena has been seen by Oncology today. They are talking about getting some immune markers to see if this can be treated with immunotherapy. She has really no complaints. OBJECTIVE: VITAL SIGNS: Temperature 98.4, pulse is 87, and blood pressure 120/58. LUNGS: Clear. HEART: Regular rate and rhythm without clicks or murmurs. LABORATORY STUDIES: CA 19-9 is 254. AFP 2. CEA 6. ASSESSMENT: 1. History of microcytic anemia and not a candidate for endoscopy and sedation in the past. We talked with Pulmonary today. They feel she would be very high risk for any type of sedation due to her severe end-stage chronic obstructive pulmonary disease. 2. Liver mass. It is unclear if this is a fluid-filled lesion like an abscess or malignancy. The pathologist felt there are a lot of necrotic cells in her biopsy, but they did think there was carcinoma present, they favored squamous. As outlined yesterday's note that is very atypical to have squamous cells, malignancies, lung, bladder, or cervical or skin metastasis to the liver, tumor was never seen. I think it is significant that she has had a prior history of lymphoma in her right neck, which was excised and treated with chemotherapy. I think it would be important to make sure this is a lymphoma. If it is unclear and the diagnosis is not clear as we consideration giving her chemotherapy, I would be in favor of re-biopsying the lesion first. We will follow along with you. Job ID: [id number]
[2019-03-07] MEDS: Montelukast Sodium 10 mg Tablet PO SCH (20:51)
--- NOTE | 2019-03-07 22:10 | CON ---
DATE OF CONSULTATION: REASON FOR CONSULT: Liver mass. HISTORY OF PRESENT ILLNESS: Ms. Mena is a 68-year-old female with advanced end-stage COPD, who is oxygen dependent. She presented to the emergency room with abdominal pain and shortness of breath. She had an abdominal and pelvis CT, which showed a liver lesion measuring 9.3 x 12.2 cm. No other disease seen on scan. She had a CT-guided liver biopsy performed. Path showed morphologic and immunohistochemical findings consistent with metastatic squamous cell carcinoma. The patient has a longstanding history of smoking, so she underwent a CT scan. The only significant finding was a 14-mm left lower lobe spiculated nodule. The liver mass was originally seen on CT scan in September. She saw GI at that time, but due to her severe lung disease, felt that she would not tolerate endoscopy. This mass has increased since September when it measured 11 mm. The patient has a significant oncological history of non- Hodgkin lymphoma with a mass in her neck. She was treated with chemotherapy in 1998 and has had no followup since that time. She denies any fever, chills, or night sweats. There is no evidence of lymphoma on CT scan. PAST MEDICAL HISTORY: 1. End-stage COPD, on home O2. 2. Chronic anemia. 3. Coronary artery disease. 4. Hypertension. 5. Anxiety disorder. 6. 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 7. Non-Hodgkin lymphoma in 1998. 8. Gastric ulcer. PAST SURGICAL HISTORY: 1. Coronary artery bypass grafting. 2. Cholecystectomy. 3. Mediport placement. ALLERGIES: TO PENICILLIN, GABAPENTIN, AND LATEX. CURRENT MEDICATIONS: 1. Proventil HFA. 2. Norvasc 5 mg daily. 3. Ecotrin 81 mg daily. 4. BuSpar 15 mg t.i.d. 5. Coreg 3.125 mg b.i.d. 6. Ceftriaxone daily. 7. Lexapro 20 mg daily. 8. Lasix 40 mg b.i.d. 9. Toradol p.r.n. 10. Metronidazole daily. 11. Dulera b.i.d. 12. Singulair daily. 13. Protonix 40 mg daily. 14. Potassium chloride 20 mEq daily. 15. Ultram p.r.n. FAMILY HISTORY: Noncontributory. SOCIAL HISTORY: . Lives with her daughter and granddaughter. Long-term smoker, quit approximately 6 months ago. REVIEW OF SYSTEMS: Positive for shortness of breath and right upper quadrant abdominal pain, otherwise negative. PHYSICAL EXAMINATION: VITAL SIGNS: Temperature is 97.5, pulse is 90, respiratory rate 14, blood pressure is 116/56, and she is 93% on 3 L. GENERAL: This is a chronically ill-appearing female, in no acute distress. HEENT: Normocephalic, atraumatic. Pupils are equal and reactive to light and cushingoid features. NECK: Supple without mass. CV: Regular rate and rhythm. LUNGS: Diminished throughout. ABDOMEN: Distended and tender. She has hepatomegaly. EXTREMITIES: No clubbing, cyanosis, or edema. SKIN: No rash. HEMATOLOGICAL: She has purpura on upper arms. NEUROLOGIC: Nonfocal. PSYCH: She is alert, oriented, and appropriate. PERTINENT LABS AND X-RAYS: Current WBCs are 9.2, hemoglobin 9.8, hematocrit 31.8, and platelet count 272,000. She has 75% neutrophils, 16% lymphocytes. Sodium is 136, potassium 3.5, chloride 95, CO2 is 30, BUN is 16, creatinine 0.77, lactic acid is 2.1, calcium 8.7, bilirubin 0.5, AST is 56, ALT is 43, alkaline phosphatase is 199. Serum total protein is 55, albumin 3.0, and globulin 2.5. AFP is less than 2. CEA is 6, and CA-19-9 is 254. RADIOLOGY: Per HPI. ASSESSMENT: 1. Large liver lesion consistent with metastatic carcinoma, possibly squamous cell. 2. End-stage chronic obstructive pulmonary disease, oxygen dependent. 3. Severe deconditioning. DISCUSSION: Case was discussed with Dr. Dent and Dr. Khan. The patient is a poor candidate for chemotherapy given her other significant comorbidities; however, we plan to run mutational studies for PDL1 mutation. If positive, she could be a candidate for immunotherapy which is very well tolerated. This does not appear to be a primary hepatoma. AFP is normal value. We would not pursue a GI workup at this time given her respiratory status. She can be discharged to home and will follow up in our clinic to further discuss potential treatment options. Thank you for the consult. Job ID: [id number] [facility]
[2019-03-08] MEDS: Ketorolac Tromethamine 30 MG/ML VIAL IVP PRN ×2 (02:48→10:24)
[2019-03-08] MEDS: metroNIDAZOLE 500 MG in Premix Bag 1 BAG IVPB SCH ×2 (05:33→14:58)
[2019-03-08] MEDS: Mometasone/Formoterol 120 PUFF INHALER INH SCH (07:04)
[2019-03-08] MEDS: traMADol HCl 50 MG TAB PO PRN ×2 (07:43→14:59)
[2019-03-08] MEDS: Aspirin 81 mg Enteric Coated Tablet PO SCH (09:01)
[2019-03-08] MEDS: Escitalopram Oxalate 20 mg Tablet PO SCH (09:01)
[2019-03-08] MEDS: busPIRone HCl 5 MG TAB PO SCH ×2 (09:01→14:57)
[2019-03-08] MEDS: Furosemide 40 MG TAB PO SCH ×2 (09:01→14:58)
[2019-03-08] MEDS: Amlodipine 5 MG TAB PO SCH (09:01)
[2019-03-08] MEDS: Carvedilol 3.125 MG TAB PO SCH (09:01)
[2019-03-08] MEDS: cefTRIAXone\\ROCEPHIN 2 GM in Sodium Chloride 0.9% 100 ML IVPB SCH (09:02)
[2019-03-08] MEDS: Potassium Chloride 20 MEQ TAB PO SCH (09:02)
[2019-03-08 13:46] VITALS: BMI 22.5
--- NOTE | 2019-03-08 15:52 | PRG ---
DATE OF SERVICE: 03/08/2019 SUBJECTIVE: Ms. Mena is feeling okay. She is eating well. She has had no fever or chills. She is talking with her primary physician. They are talking about let her go home with antibiotics for postobstructive pneumonia. OBJECTIVE: VITAL SIGNS: Temperature is 99 to 98, pulse is 100, blood pressure is 133/73. LUNGS: Notable for expiratory wheezing. She is wearing oxygen. ABDOMEN: Soft and nontender. ASSESSMENT AND PLAN: Liver mass, necrotic. It is possible this had some infection, but not much was drainable from it. Her cultures were never diagnostic of anything. From blood cultures sign, she is being treated with some antibiotics by Infectious Disease still, however. Pathology has read the biopsies from this mass, which they described as being necrotic and showing carcinoma, they think squamous cell carcinoma. As I have discussed with primary physician and Oncology, it would be very atypical primary or even secondary tumor in the liver. Oncology states she is going to follow up with them in the office next week and they are going to get some other tumor markers and immunologic studies on this, to see if they can further delineate the lesion. The alpha-fetoprotein was less than 2. CEA was 6.08 and CA 19-9 was 254. The last two were elevated, but not definitively specific. At this time, after talking with Pulmonary again, she is not a candidate for sedation or endoscopy and we will withhold her off endoscopic evaluation at this time. I would be happy to see her back in the office as needed. Job ID: [id number]
[2019-03-08 16:52] VITALS: BP 117/58; TEMP 98.6
--- NOTE | 2019-03-08 22:14 | DIS ---
DATE OF ADMISSION: 02/27/2019 DATE OF DISCHARGE: 03/08/2019 PRIMARY CARE PROVIDER: Dr. Morrissey. DISCHARGE DIAGNOSES: 1. Acute hypoxic respiratory failure, present at the time of admission. 2. Postobstructive pneumonia. 3. Liver metastasis. 4. Lung mass. CONDITION OF PATIENT ON THE DAY OF DISCHARGE: Stable. I assessed Ms. Mena on the day of discharge. She denies any chest pain or shortness of breath. Vital signs are stable. S1 and S2 are heard, regular. Lungs are clear to auscultation bilaterally. DISCHARGE MEDICATIONS: In addition to her pre-admission home medications as dictated by Dr. Morrissey in his history and physical note dated 02/27/2019, she is being discharged on metronidazole 500 mg 3 times a day for 1 week and cefuroxime 250 mg 2 times a day for 1 week. CONSULTATIONS DURING THIS HOSPITALIZATION: 1. Infectious Diseases, Dr. Vigil. 2. Gastroenterology, Dr. Chiu. 3. Oncology, Dr. Velazquez. HOSPITAL COURSE: Ms. Mena is a pleasant 68-year-old lady, who was admitted to [facility] on 02/27/2019, for abdominal pain secondary to hepatic mass. She underwent CT-guided biopsy of the liver mass. She was seen by Infectious Diseases, Gastroenterology, and Oncology Services. Pathology report showed metastatic carcinoma. Oncology Service will follow up with her in clinic. She also had CT scan of the chest with contrast, which showed 14 mm left lower lobe spiculated mass concerning for malignancy. She also had abnormal hypodensity in the posterior segment of the right lower lobe with an area of atelectasis, more hypodense than atelectasis would be expected. This is similar for underlying mass with adjacent pneumonitis, according to radiologist. She also had moderate bilateral layering pleural effusions and severe obstructive disease. She continued to improve clinically. She is being discharged home in a stable condition with resumption of home health services. She is advised to follow up with her primary care provider and oncologist. Her CA-19-9 antigen level was 254, elevated. CEA was also elevated at 6.08. Alpha-fetoprotein was less than 2.0. Many thanks for allowing me to participate in your patient's care. Please feel free to contact me with any questions or concerns. DISCHARGE DESTINATION: Home. TOTAL AMOUNT OF TIME SPENT COORDINATING THIS DISCHARGE: 32 minutes. Job ID: [id number]
== END 2019-03-08 17:09 | disposition home health service (06) | DRG 435 ==
LOC: ERS 17:33 → 2NO 21:39
PROVIDERS: ADMIT Internal Medicine; ATTEND Internal Medicine
PROC: 0FB13ZX Excision of Right Lobe Liver, Percutaneous Approach, Diagnostic (ICD-10-PCS; principal; 2019-03-01)
DX: C78.7 Secondary malignant neoplasm of liver and intrahepatic bile duct (principal); J96.01 Acute respiratory failure with hypoxia; J18.8 Other pneumonia, unspecified organism; E87.2 Acidosis; J90 Pleural effusion, not elsewhere classified; J44.0 Chronic obstructive pulmonary disease with (acute) lower respiratory infection; I10 Essential (primary) hypertension; E11.9 Type 2 diabetes mellitus without complications; I25.10 Atherosclerotic heart disease of native coronary artery without angina pectoris; F41.9 Anxiety disorder, unspecified; D50.9 Iron deficiency anemia, unspecified; R91.8 Other nonspecific abnormal finding of lung field; Z79.52 Long term (current) use of systemic steroids; Z87.891 Personal history of nicotine dependence; Z91.040 Latex allergy status; Z79.82 Long term (current) use of aspirin; Z88.0 Allergy status to penicillin; Z95.1 Presence of aortocoronary bypass graft; Z87.01 Personal history of pneumonia (recurrent); Z85.72 Personal history of non-Hodgkin lymphomas; Z99.81 Dependence on supplemental oxygen
CPT/HCPCS: 36415; 47000; 51701; 71045; 71260; 74177; 77002; 80048; 80053; 81003; 82105; 82378; 82550; 83605; 83880; 85025; 85610; 85730; 86301; 86753; 87040; 87086; 88173; 88305; 88307; 88333; 88334; 88341; 88342; 93005; 94640; 94760; 96365; 96375; A4353; J0696; J1885; J2250; J3010; J3370; J3490; J7050; J7620; Q9966; Q9967

== ENCOUNTER 2019-03-13 14:51 | Inpatient (IN) | payer MEDICARE ==
--- NOTE | 2019-03-13 15:11 | RAD ---
Chest one view HISTORY: Dyspnea. COMPARISON: CT chest from 03/07/2019. FINDINGS: Cardiac silhouette is magnified by projection. Ill-defined opacity at the right base has th e appearance of lower lobe infiltrate and right pleural fluid. Mediastinum is midline with postoperative changes, aortic calcification, and a right-sided Port-A-Cath. No evidence of pneumothor ax. IMPRESSION: Right lower lobe infiltrate and right pleural fluid. Clinical correlation regarding other signs and symptoms of right lower lobe pneumonitis is required. Atherosclerosis.
[2019-03-13 15:26] LABS: #Basophils 0.1 thou/uL (0.0-0.2); #Lymphocytes 3.9 thou/uL (1.20-3.40); #Monocytes 1.6 thou/uL (0.11-0.59); #Neutrophils 7.8 thou/uL (1.40-6.50); %Basophils 0.5 % (0.0-1.0); %Eosinophils 0.2 % (0.0-10.0); %Lymphocytes 29.3 % (21.0-51.0); Hemoglobin 9.4 g/dL (12.0-16.0); Mean Corpuscular HGB CONC 31.6 g/dL (32.0-36.0); Mean Corpuscular Hemoglobin 26.9 pg (27.0-31.0); Mean Platelet Volume 7.8 fL (7.4-10.4); Platelet Count 683 thou/uL (130-400); RBC Distribution Width 22.1 % (11.5-14.5); Red Blood Cell (RBC) Count 3.51 mill/uL (4.20-5.40); White Blood Cell (WBC) Count 13.4 thou/uL (4.8-10.8)
[2019-03-13 15:52] LABS: ALT (SGPT) 39 U/L (8-55); AST (SGOT) 114 U/L (5-34); Alkaline Phosphatase 379 U/L (40-150); Anion Gap 15 mmol/L (10-20); BUN (Urea Nitrogen) 14 mg/dL (9.8-20.1); Bilirubin, Total 0.6 mg/dL (0.2-1.2); CK (CPK) 62 U/L (29-168); Calc. Creatinine Clearance 0 mL/min (70-130); Calcium 8.9 mg/dL (7.8-10.44); Carbon Dioxide 31 mmol/L (23-31); Chloride 96 mmol/L (98-107); Estimated GFR-MDRD Greater than 90; Globulin 3.4 g/dL (2.4-3.5); Glucose 145 mg/dL (80-115); Potassium 4.5 mmol/L (3.5-5.1); Protein, Total 6.4 g/dL (6.0-8.3); Sodium 137 mmol/L (136-145)
[2019-03-13 15:55] LABS: Anisocytosis MODERATE=16-30 cells (100X) (0-5/hpf); Elliptocytes SLIGHT = 2-5 cells (100X) (0-1/hpf); Hypochromia SLIGHT = 6-15 cells (100X) (0-5/hpf); Large Platelets SLIGHT; MDiff Complete? YES; Ovalocytes SLIGHT = 2-5 cells (100X) (0-1/hpf); Platelet Morphology Comment Appears Increased; Poikilocytosis MODERATE=16-30 cells (100X) (0-5/hpf); Polychromasia MODERATE = 3-4 cells (100X) (0-2/hpf); Schistocytes SLIGHT = 2-5 cells (100X) (0-1/hpf); Target Cells SLIGHT = 2-5 cells (100X) (0-1/hpf)
[2019-03-13] MEDS ORDERED: methylPREDNISolone Sod Succ/PF 125 MG/2 ML VIAL ONE (16:08)
[2019-03-13] MEDS ORDERED: Cefepime 2 GM VIAL ONE (16:08)
[2019-03-13] MEDS ORDERED: Acetaminophen 325 MG TAB PO PRN (21:26)
[2019-03-13] MEDS ORDERED: Ondansetron ODT 4 MG TAB SL PRN (21:26)
[2019-03-13] MEDS ORDERED: Ondansetron PF 4 MG/2 ML Vial IVP PRN (21:26)
[2019-03-14] MEDS ORDERED: methylPREDNISolone Sod Succ 40 MG VIAL IVP SCH (00:30)
[2019-03-14] MEDS ORDERED: Lisinopril 10 MG TAB PO PRN (00:32)
[2019-03-14] MEDS ORDERED: PROVENTIL INHALER 6.7 G (200 INHALATIONS) INH PRN (00:37)
[2019-03-14] MEDS: Cefepime 1 GM in Sodium Chloride 0.9% 100 ML IVPB SCH ×4 (00:54→17:34)
[2019-03-14] MEDS: Acetaminophen 325 MG TAB PO PRN (00:54)
[2019-03-14] MEDS: Bacteriostatic Water 30 ML VIAL FS PRN (00:55)
[2019-03-14] MEDS: PROVENTIL INHALER 6.7 G (200 INHALATIONS) INH SCH ×4 (01:02→19:14)
[2019-03-14] MEDS ORDERED: traMADol HCl 50 MG TAB PO SCH (05:00)
[2019-03-14] MEDS: methylPREDNISolone Sod Succ 40 MG VIAL IVP SCH ×3 (05:28→17:30)
[2019-03-14] MEDS: Mometasone/Formoterol 120 PUFF INHALER INH SCH ×2 (06:47→19:11)
[2019-03-14] MEDS: Furosemide 40 MG TAB PO SCH ×2 (08:53→15:16)
[2019-03-14] MEDS: Carvedilol 3.125 MG TAB PO SCH ×2 (08:53→19:52)
[2019-03-14] MEDS: Potassium Chloride 20 MEQ TAB PO SCH (08:53)
[2019-03-14] MEDS: busPIRone HCl 10 MG TAB PO SCH ×3 (08:53→19:51)
[2019-03-14] MEDS: Escitalopram Oxalate 20 mg Tablet PO SCH (08:54)
[2019-03-14] MEDS: Aspirin 81 mg Enteric Coated Tablet PO SCH (08:54)
[2019-03-14] MEDS: Amlodipine 5 MG TAB PO SCH (08:54)
[2019-03-14] MEDS ORDERED: Ketorolac Tromethamine 30 MG/ML VIAL IVP SCH (12:00)
[2019-03-14] MEDS: Ketorolac Tromethamine 30 MG/ML VIAL IVP PRN (12:58)
[2019-03-14] MEDS: Lisinopril 10 MG TAB PO SCH (19:51)
[2019-03-14] MEDS: Montelukast Sodium 10 mg Tablet PO SCH (19:51)
[2019-03-14] MEDS: Atorvastatin Calcium 40 MG TAB PO SCH (19:51)
[2019-03-14] MEDS ORDERED: Vancomycin HCl 1 GM in Premix Bag 1 BAG IVPB SCH (20:00)
[2019-03-15] MEDS: methylPREDNISolone Sod Succ 40 MG VIAL IVP SCH ×4 (00:37→17:34)
--- NOTE | 2019-03-15 00:53 | HP ---
CHIEF COMPLAINT: Shortness of breath, cough. HISTORY OF PRESENT ILLNESS: Ms. Mena is a 68-year-old female with past medical history of hypertension; coronary artery disease, status post CABG; and end-stage COPD, came in because of cough, productive with yellow sputum and feeling very short of breath. The patient states she could not catch her breath. The patient was recently in the hospital and was diagnosed with liver metastasis with primary unknown. According to the family, the patient has productive cough since she went home from the hospital, but the shortness of breath got worse. She became very hypoxic. According to them, her oxygen saturation dropped to 52%. After receiving some breathing treatment, it went up to 74%, so EMS was called. EMS found the patient was hypoxic with a saturation of 62%. She was given neb treatments and brought into the ER where she was evaluated and found to have pneumonia, right lower lobe, and COPD exacerbation. The patient received a dose of Solu-Medrol and neb treatments and cefepime as well as vancomycin. Currently, the patient complains of back pain and also abdominal pain. PAST MEDICAL HISTORY: 1. End-stage COPD, on home oxygen. 2. Hypertension. 3. Hyperlipidemia. 4. Chronic anemia. 5. Anxiety disorder. 6. Coronary artery disease, status post CABG. 7. Liver metastasis, primary unknown. PAST SURGICAL HISTORY: Status post CABG. CURRENT MEDICATIONS: The patient is on; 1. DuoNeb q.i.d. 2. Lisinopril 10 mg b.i.d. 3. Singulair 10 mg daily. 4. Omeprazole 40 mg daily. 5. K-Dur 20 mEq daily. 6. Albuterol inhaler p.r.n. 7. Amlodipine 5 mg daily. 8. Aspirin 81 mg daily. 9. Lipitor 40 mg daily. 10. Symbicort 160/4.5 two puffs b.i.d. 11. BuSpar 15 mg t.i.d. 12. Coreg 3.125 b.i.d. 13. Lexapro 20 mg daily. 14. Lasix 40 b.i.d. ALLERGIES: LATEX AND PENICILLIN. FAMILY HISTORY: Nothing contributory. SOCIAL HISTORY: The patient lives with family. No history of smoking. No history of alcohol intake. REVIEW OF SYSTEMS: CARDIOVASCULAR: No chest pain. Has shortness of breath. RESPIRATORY: Has cough, productive of yellow sputum. No fever. GASTROINTESTINAL: Has abdominal pain. No nausea or vomiting. CENTRAL NERVOUS SYSTEM: No headache. No dizziness. PHYSICAL EXAMINATION: GENERAL: The patient is alert, awake, and oriented x3. VITAL SIGNS: Temperature 98, pulse 89, respirations 20, and blood pressure 118/ 60. HEENT: Head is normocephalic and atraumatic. Pupils are equal and reactive. Nasopharynx is pale and dry. Hard and soft palate. No lesions. SKIN: Turgor decreased. NECK: Supple. No JVD. LUNGS: Breath sounds diminished bilaterally. Percussion dull bilaterally. Expiratory wheeze present. Crackles present at right lower lobe. HEART: S1 and S2 regular. ABDOMEN: Soft. No distention. Diffusely tender. No guarding. No rigidity. Normal bowel sounds. RECTAL: Deferred. CENTRAL NERVOUS SYSTEM: No focal deficits. LABORATORY DATA: CBC shows WBC 13, hemoglobin 9.4, hematocrit 29, and platelets of 600,000, Metabolic panel; sodium 137, potassium 4.2, chloride 96, CO2 of 31, BUN 14, creatinine 0.7, and glucose 149. BNP was 165. Lactic acid level 3.5. Chest x-ray shows right lower lobe infiltrate. EKG shows normal sinus rhythm, no acute ST-T changes seen. ASSESSMENT: 1. Pneumonia, right lower lobe. 2. Rule out sepsis. 3. Chronic obstructive pulmonary disease, acute exacerbation. 4. Acute on chronic respiratory failure. 5. Liver metastasis, primary unknown. 6. Chronic anemia. 7. Anxiety disorder. PLAN: 1. Vital signs q.4 hours. 2. Activity as tolerated. 3. Allergies; penicillin and latex. 4. Diet: Cardiac. 5. Hep-Lock. 6. Cefepime 2 g IV piggyback q.8 hours. 7. Vancomycin 1 g IV piggyback q.12 hours. 8. Continue home medications. 9. Solu-Medrol 20 mg IVP q.6 hours and DuoNebs 1 unit q.4 hours. CODE STATUS: Her code status has been discussed with the patient as well as her daughter, and both want the patient to be DNR. Job ID: [id number] MTDD
[2019-03-15] MEDS: Cefepime 2 GM in Sodium Chloride 0.9% 100 ML IVPB SCH ×3 (00:55→17:32)
[2019-03-15] MEDS: PROVENTIL INHALER 6.7 G (200 INHALATIONS) INH SCH ×5 (01:51→23:09)
[2019-03-15] MEDS: Ketorolac Tromethamine 30 MG/ML VIAL IVP PRN ×2 (04:11→20:57)
[2019-03-15] MEDS: Mometasone/Formoterol 120 PUFF INHALER INH SCH ×2 (07:05→18:26)
[2019-03-15] MEDS: Vancomycin HCl 500 MG in Sodium Chloride 0.9% 100 ML IVPB SCH ×2 (07:30→20:55)
[2019-03-15] MEDS: busPIRone HCl 10 MG TAB PO SCH ×3 (08:50→20:55)
[2019-03-15] MEDS: Potassium Chloride 20 MEQ TAB PO SCH (08:51)
[2019-03-15] MEDS: Aspirin 81 mg Enteric Coated Tablet PO SCH (08:51)
[2019-03-15] MEDS: Escitalopram Oxalate 20 mg Tablet PO SCH (08:51)
[2019-03-15] MEDS: Amlodipine 5 MG TAB PO SCH (08:51)
[2019-03-15] MEDS: Lisinopril 10 MG TAB PO SCH (08:52)
[2019-03-15] MEDS: Carvedilol 3.125 MG TAB PO SCH ×2 (08:52→20:55)
[2019-03-15] MEDS: Furosemide 40 MG TAB PO SCH ×2 (08:52→15:14)
[2019-03-15] MEDS: Bacteriostatic Water 30 ML VIAL FS PRN (17:34)
[2019-03-15] MEDS: Montelukast Sodium 10 mg Tablet PO SCH (20:55)
[2019-03-15] MEDS: Atorvastatin Calcium 40 MG TAB PO SCH (20:56)
[2019-03-16] MEDS: Cefepime 2 GM in Sodium Chloride 0.9% 100 ML IVPB SCH ×3 (00:50→17:50)
[2019-03-16] MEDS: methylPREDNISolone Sod Succ 40 MG VIAL IVP SCH ×4 (00:50→17:51)
[2019-03-16] MEDS: PROVENTIL INHALER 6.7 G (200 INHALATIONS) INH SCH ×4 (07:33→23:09)
[2019-03-16] MEDS: Mometasone/Formoterol 120 PUFF INHALER INH SCH ×2 (07:36→18:25)
[2019-03-16] MEDS: Vancomycin HCl 500 MG in Sodium Chloride 0.9% 100 ML IVPB SCH (07:57)
[2019-03-16] MEDS: Potassium Chloride 20 MEQ TAB PO SCH (07:59)
[2019-03-16 08:43] LABS: Hemoglobin 8.5 g/dL (12.0-16.0)
[2019-03-16 09:03] LABS: Anion Gap 15 mmol/L (10-20); BUN (Urea Nitrogen) 41 mg/dL (9.8-20.1); Calc. Creatinine Clearance 44 mL/min (70-130); Calcium 9.1 mg/dL (7.8-10.44); Carbon Dioxide 24 mmol/L (23-31); Chloride 104 mmol/L (98-107); Estimated GFR-MDRD 63; Glucose 163 mg/dL (80-115); Potassium 3.9 mmol/L (3.5-5.1); Sodium 139 mmol/L (136-145)
[2019-03-16 09:05] LABS: #Lymphocytes 0.7 thou/uL (1.20-3.40); #Monocytes 0.3 thou/uL (0.11-0.59); %Basophils 0.1 % (0.0-1.0); %Lymphocytes 9.1 % (21.0-51.0); %Monocytes 3.4 % (0.0-10.0); %Neutrophils 87.4 % (42.0-75.0); Mean Corpuscular HGB CONC 30.5 g/dL (32.0-36.0); Mean Corpuscular Hemoglobin 25.9 pg (27.0-31.0); Mean Platelet Volume 7.7 fL (7.4-10.4); Platelet Count 578 thou/uL (130-400); RBC Distribution Width 21.8 % (11.5-14.5); Red Blood Cell (RBC) Count 3.27 mill/uL (4.20-5.40)
[2019-03-16 09:08] LABS: Vancomycin, Trough 45.9 ug/mL
[2019-03-16] MEDS: busPIRone HCl 10 MG TAB PO SCH ×3 (10:18→21:53)
[2019-03-16] MEDS: Aspirin 81 mg Enteric Coated Tablet PO SCH (10:18)
[2019-03-16] MEDS: Escitalopram Oxalate 20 mg Tablet PO SCH (10:22)
[2019-03-16] MEDS: Amlodipine 5 MG TAB PO SCH (10:22)
[2019-03-16] MEDS: Furosemide 40 MG TAB PO SCH ×2 (10:23→14:57)
[2019-03-16] MEDS: Lisinopril 10 MG TAB PO SCH (10:23)
[2019-03-16] MEDS: Carvedilol 3.125 MG TAB PO SCH ×2 (10:24→21:53)
[2019-03-16] MEDS: Bacteriostatic Water 30 ML VIAL FS PRN (12:06)
[2019-03-16] MEDS: Ketorolac Tromethamine 30 MG/ML VIAL IVP PRN (17:57)
[2019-03-16 19:48] LABS: Vancomycin, Trough 33.3 ug/mL
[2019-03-16] MEDS: Montelukast Sodium 10 mg Tablet PO SCH (21:52)
[2019-03-16] MEDS: Atorvastatin Calcium 40 MG TAB PO SCH (21:52)
[2019-03-17] MEDS: methylPREDNISolone Sod Succ 40 MG VIAL IVP SCH ×4 (01:12→18:08)
[2019-03-17] MEDS: Cefepime 2 GM in Sodium Chloride 0.9% 100 ML IVPB SCH ×3 (01:12→18:08)
[2019-03-17] MEDS: Ketorolac Tromethamine 30 MG/ML VIAL IVP PRN ×3 (02:41→15:25)
[2019-03-17] MEDS: PROVENTIL INHALER 6.7 G (200 INHALATIONS) INH SCH ×4 (08:01→23:16)
[2019-03-17] MEDS: Mometasone/Formoterol 120 PUFF INHALER INH SCH ×2 (08:03→19:11)
[2019-03-17] MEDS: busPIRone HCl 10 MG TAB PO SCH ×3 (09:31→20:30)
[2019-03-17] MEDS: Potassium Chloride 20 MEQ TAB PO SCH (09:31)
[2019-03-17] MEDS: Lisinopril 10 MG TAB PO SCH (09:32)
[2019-03-17] MEDS: Amlodipine 5 MG TAB PO SCH (09:32)
[2019-03-17] MEDS: Escitalopram Oxalate 20 mg Tablet PO SCH (09:32)
[2019-03-17] MEDS: Carvedilol 3.125 MG TAB PO SCH ×2 (09:32→20:29)
[2019-03-17] MEDS: Aspirin 81 mg Enteric Coated Tablet PO SCH (09:33)
[2019-03-17] MEDS: Furosemide 40 MG TAB PO SCH ×2 (09:33→15:17)
--- NOTE | 2019-03-17 11:38 | PQF ---
CLINICAL DOCUMENTATION IMPROVEMENT CLARIFICATION FORM: ICD-10 Updated PLEASE DO AN ADDENDUM TO THE PROGRESS NOTE WITH ANY DOCUMENTATION UPDATES OR ADDITIONS AND CARRY THROUGH TO DC SUMMARY. THANK YOU. DATE: 03/17/2019 ATTN: Dr. Morrissey Please exercise your independent, professional judgment in responding to the clarification form. Clinical indicators are provided on the bottom of this form for your review Please check appropriate box(s) to clarify if the following diagnosis has been ruled in or ruled out: SEPSIS [ ] Ruled in diagnosis [ ] Continue to treat [ ] Resolved [ y ] Ruled out diagnosis [ ] Cannot rule out diagnosis [ ] Other diagnosis [ ] Unable to determine In addition, please specify: Present on Admission (POA): [ y] Yes [ ] No [ ] Unable to determine For continuity of documentation, please document condition throughout progress notes and discharge summary. Thank You. CLINICAL INDICATORS - SIGNS / SYMPTOMS / LABS H&P 03/13: WBC 13 Lactic acid level 3.5 Pneumonia, right lower lobe Rule out sepsis RISKS: H&P: PMH: End-stage COPD, on home oxygen. HTN. CAD. Liver metastasis. Pneumonia, R LL. COPD acute exac. Acute on chronic respiratory failure. TREATMENT: MAR: Order 03/14-03/16: Vancomycin HCL 500mg IV MAR: Order 03/14: Cefepime 2 gm IV Thank you, Petra (This form is maintained as a part of the permanent medical record) 2014 [employer] All Rights Reserved Petra Valera RN, BSN [email or web address] Office: [phone] [facility]
[2019-03-17] MEDS: Montelukast Sodium 10 mg Tablet PO SCH (20:29)
[2019-03-17] MEDS: Atorvastatin Calcium 40 MG TAB PO SCH (20:30)
[2019-03-18] MEDS: methylPREDNISolone Sod Succ 40 MG VIAL IVP SCH ×3 (00:35→12:37)
[2019-03-18] MEDS: Cefepime 2 GM in Sodium Chloride 0.9% 100 ML IVPB SCH ×3 (00:36→17:26)
[2019-03-18] MEDS: Ketorolac Tromethamine 30 MG/ML VIAL IVP PRN (01:01)
[2019-03-18] MEDS: PROVENTIL INHALER 6.7 G (200 INHALATIONS) INH SCH ×4 (08:08→23:44)
[2019-03-18] MEDS: Mometasone/Formoterol 120 PUFF INHALER INH SCH ×2 (08:10→18:46)
[2019-03-18 08:19] LABS: #Lymphocytes 0.7 thou/uL (1.20-3.40); #Monocytes 0.4 thou/uL (0.11-0.59); #Neutrophils 9.6 thou/uL (1.40-6.50); %Basophils 0.2 % (0.0-1.0); %Eosinophils 0.2 % (0.0-10.0); %Lymphocytes 6.5 % (21.0-51.0); %Monocytes 3.5 % (0.0-10.0); %Neutrophils 89.7 % (42.0-75.0); Hemoglobin 8.9 g/dL (12.0-16.0); Mean Corpuscular HGB CONC 30.4 g/dL (32.0-36.0); Mean Corpuscular Hemoglobin 25.3 pg (27.0-31.0); Mean Platelet Volume 8.1 fL (7.4-10.4); Platelet Count 485 thou/uL (130-400); RBC Distribution Width 21.7 % (11.5-14.5); Red Blood Cell (RBC) Count 3.53 mill/uL (4.20-5.40); White Blood Cell (WBC) Count 10.7 thou/uL (4.8-10.8)
[2019-03-18 08:38] LABS: Anion Gap 18 mmol/L (10-20); BUN (Urea Nitrogen) 55 mg/dL (9.8-20.1); Calc. Creatinine Clearance 37 mL/min (70-130); Calcium 9.1 mg/dL (7.8-10.44); Carbon Dioxide 25 mmol/L (23-31); Chloride 105 mmol/L (98-107); Estimated GFR-MDRD 50; Glucose 149 mg/dL (80-115); Potassium 3.5 mmol/L (3.5-5.1); Sodium 144 mmol/L (136-145)
[2019-03-18] MEDS: Lisinopril 10 MG TAB PO SCH (09:20)
[2019-03-18] MEDS: Amlodipine 5 MG TAB PO SCH (09:21)
[2019-03-18] MEDS: Carvedilol 3.125 MG TAB PO SCH ×2 (09:21→21:16)
[2019-03-18] MEDS: busPIRone HCl 10 MG TAB PO SCH ×3 (09:21→21:16)
[2019-03-18] MEDS: Escitalopram Oxalate 20 mg Tablet PO SCH (09:21)
[2019-03-18] MEDS: Furosemide 40 MG TAB PO SCH ×2 (09:21→15:52)
[2019-03-18] MEDS: Potassium Chloride 20 MEQ TAB PO SCH (09:22)
[2019-03-18] MEDS: Aspirin 81 mg Enteric Coated Tablet PO SCH (09:22)
[2019-03-18] MEDS: Acetaminophen 325 MG TAB PO PRN (15:44)
--- NOTE | 2019-03-18 15:53 | EKG ---
Test Reason : SOB Blood Pressure : / mmHG Vent. Rate : 100 BPM Atrial Rate : 100 BPM P-R Int : 154 ms QRS Dur : 074 ms QT Int : 318 ms P-R-T Axes : 104 117 101 degrees QTc Int : 410 ms Suspect arm lead reversal, interpretation assumes no reversal Sinus rhythm with Premature atrial complexes Low voltage QRS Confirmed by AVE ZAPIEN ([id number]), editorial project manager PATRICK YU ([id number]) on 03/18/2019 3:52:43 PM Referred By: Confirmed By:AVE ZAPIEN
[2019-03-18] MEDS: Montelukast Sodium 10 mg Tablet PO SCH (21:17)
[2019-03-18] MEDS: Atorvastatin Calcium 40 MG TAB PO SCH (21:17)
--- NOTE | 2019-03-19 00:15 | CON ---
DATE OF CONSULTATION: 03/18/2019 Ms. Mena is a 68-year-old female with end-stage chronic obstructive pulmonary disease. She was discharged from the hospital on March 08. She was readmitted March 14. It looks like on last admission, she was found to have a liver mass, which was biopsied. Her diagnosis was metastatic carcinoma, although it was felt to be most likely squamous cell. Chest CT shows a 14 mm lower lobe mass. It is an unusual behavior for squamous cell carcinoma of the lung to lead to a very large, almost 10 cm liver mass and have only a small squamous cell tumor in the lung. My impression is that she would not tolerate any type of therapy. In any event , she has been readmitted on 03/14 after presenting the night of the . Her complaint is shortness of breath. Chest x-ray shows an infiltrate in her right lower lobe and an effusion on the right. PAST MEDICAL HISTORY: 1. Remarkable for chronic gastrointestinal blood loss. 2. End-stage chronic obstructive pulmonary disease. 3. DO NOT RESUSCITATE status. 4. Hypertension. 5. Lipid disorder. 6. Anxiety. 7. History of coronary artery bypass grafting and coronary artery disease. MEDICATIONS: Reviewed. SOCIAL HISTORY: She is not smoking or drinking. ALLERGIES: SHE HAS ALLERGIES TO PENICILLIN. FAMILY HISTORY: Negative for lung disease in early age. She apparently lives with her family. REVIEW OF SYSTEMS: 10 point review of systems completed, remarkable only for " I feel bad." PHYSICAL EXAMINATION: GENERAL: Ms. Mena is a 68-year-old female with end-stage chronic obstructive pulmonary disease. VITAL SIGNS: Heart rate is 107, she is afebrile, respiratory rate is 20, oximetry is 100% on nasal cannula, blood pressure 141/58. HEENT: Pupils reactive. Sclerae are anicteric. NECK: Supple. LUNGS: Remarkable for distant breath sounds. HEART: Regular rhythm. ABDOMEN: Diffusely tender with guarding. EXTREMITIES: Without clubbing. LABORATORY DATA: White count 10.7, hemoglobin 8.9, platelets 485,000. Sodium 144, potassium 3.5, chloride 105, bicarb 25, BUN 55, creatinine 1.27. IMPRESSION: 1. Metastatic squamous cell carcinoma. 2. Extreme deconditioning. 3. End-stage chronic obstructive pulmonary disease with steroid dependence. 4. Abdominal tenderness, worrisome for in my opinion ischemic bowel. 5. She is not a candidate for any type of surgical procedure. 6. Focus should be mainly comfort care as her short-term prognosis is extremely poor. 7. Consideration for hospice, transfer to inpatient should be given in my opinion. This is a 50 minute consult, with greater than 50% of time spent on unit coordinating care. Job ID: [id number] MTDD
[2019-03-19] MEDS: Cefepime 2 GM in Sodium Chloride 0.9% 100 ML IVPB SCH ×3 (01:59→18:32)
[2019-03-19 05:57] LABS: Vancomycin, Random 18.1 ug/mL (See Comment)
[2019-03-19] MEDS: PROVENTIL INHALER 6.7 G (200 INHALATIONS) INH SCH ×4 (08:08→23:17)
[2019-03-19] MEDS: Mometasone/Formoterol 120 PUFF INHALER INH SCH ×4 (08:09→18:42)
[2019-03-19] MEDS: busPIRone HCl 10 MG TAB PO SCH ×3 (10:27→20:59)
[2019-03-19] MEDS: Carvedilol 3.125 MG TAB PO SCH ×2 (10:28→21:01)
[2019-03-19] MEDS: Aspirin 81 mg Enteric Coated Tablet PO SCH (10:28)
[2019-03-19] MEDS: Potassium Chloride 20 MEQ TAB PO SCH (10:28)
[2019-03-19] MEDS: Escitalopram Oxalate 20 mg Tablet PO SCH (10:28)
[2019-03-19] MEDS: Lisinopril 10 MG TAB PO SCH (10:29)
[2019-03-19] MEDS: predniSONE 20 MG TAB PO SCH (10:29)
[2019-03-19] MEDS: Amlodipine 5 MG TAB PO SCH (10:31)
--- NOTE | 2019-03-19 12:55 | CON ---
DATE OF CONSULTATION: HISTORY OF PRESENT ILLNESS: Shelli Mena is a 68-year-old white female, who has been evaluated by Dr. Guardado in the past. Ms. Mena has a history of CABG x3 several years ago in [place], [place]. She was seen by Dr. Guardado in 04/2018, when Ms. Mena was admitted with COPD exacerbation. Echocardiogram during that admission revealed ejection fraction of 50% to 55% with mild mitral regurgitation, mitral annular calcification, thickened aortic valve leaflets with mild aortic stenosis with a valve area of 1.76 sq cm, and mild tricuspid regurgitation. Ms. Mena has had multiple admissions for her COPD. She just discharged on 11/26, and readmitted on 03/14/19. She was found to have a liver mass on last admission and was felt to be metastatic squamous cell carcinoma. She has been found to have an infiltrate in her right lower lobe. She has had episodes of supraventricular tachycardia, which are somewhat irregular and may represent multifocal atrial tachycardia. Ms. Mena does admit that at times she will feel her heart beating fast; however, she states this lasts for several minutes at a time, which has not been documented here. She denies any chest discomfort. It is very difficult to obtain history from her, in that she does not answer most questions. PAST MEDICAL HISTORY: 1. Coronary artery disease. 2. End-stage COPD. 3. DNR. 4. Hypertension. 5. Hypercholesterolemia. 6. Anxiety. 7. History of chronic GI blood loss. 8. Finding of liver met with squamous cell carcinoma. MEDICATIONS: 1. Albuterol two puffs q.6 h. 2. Amlodipine 5 mg daily. 3. Aspirin 81 daily. 4. Atorvastatin 40 nightly. 5. Symbicort two puffs b.i.d. 6. Buspirone 15 mg t.i.d. 7. Carvedilol 3.125 b.i.d. 8. Lexapro 20 mg daily. 9. Furosemide 40 b.i.d. 10. DuoNebs p.r.n. 11. Lisinopril 10 mg b.i.d. p.r.n. 12. Singulair 10 mg nightly. 13. Omeprazole 40 t.i.d. 14. KCl 20 mEq daily. ALLERGIES: 1. PENICILLIN. 2. GABAPENTIN. 3. LATEX. 4. TRAMADOL. SOCIAL HISTORY: She smoked in the past and apparently is not at the present time. REVIEW OF SYSTEMS: Unable to obtain. The patient not answering questions. PHYSICAL EXAMINATION: VITAL SIGNS: Blood pressure 140/69 and pulse of 91. HEENT: PERRL. She has hernández facies. CHEST: Distant breath sounds. CARDIOVASCULAR: S1 and S2 normal without any S3, S4, or murmurs. ABDOMEN: Normal bowel sounds. EXTREMITIES: No edema; however, she has multiple areas of skin breakdown on her lower extremities. NEUROLOGIC: The patient is lethargic, but moves all extremities. LABORATORY DATA: Admission EKG revealed normal sinus rhythm with premature atrial beats, low voltage. Hemoglobin 8.9, hematocrit 29.3, white count 10,700, and platelets 485,000. Sodium 144, potassium 3.5, chloride 105, carbon dioxide 25, BUN 55, and creatinine 1.27. BNP 965.4. IMPRESSION: 1. Episodes of supraventricular tachycardia, probably multifocal atrial tachycardia. It is questionable if she is symptomatic with these. 2. History of coronary artery bypass graft x3. 3. Possible right lower lobe pneumonia. 4. End-stage chronic obstructive pulmonary disease, the patient is do no resuscitate. 5. Chronic anemia. 6. Former smoker. 7. Hypercholesterolemia. 8. Hypertension. 9. Liver metastasis with squamous cell carcinoma of unknown primary. PLAN: Ms. Mena is DNR, chronically ill, and it sounds as if she is heading towards hospice. Therefore, I would not do anything very aggressively for this benign rhythm. I will discontinue her Norvasc, and instead place her on Cardizem, which hopefully will suppress these episodes or at least reduce the rate if they occur again. Job ID: [id number] [facility]
--- NOTE | 2019-03-19 14:42 | PRG ---
DATE OF SERVICE: 03/19/2019 SUBJECTIVE: Shelli Mena is sitting upright in bed. She is mildly encephalopathic. She is cooperative. OBJECTIVE: VITAL SIGNS: Heart rate is 92, blood pressure 140/56, respiratory rate is in the mid 20s, oximetry is 93% on 4 L. LUNGS: Remarkable for distant wheezes. HEART: Regular rhythm. ABDOMEN: Soft and still diffusely tender. LABORATORY DATA: There is no new lab today. IMPRESSION AND PLAN: 1. End-stage chronic obstructive pulmonary disease. 2. Atrial arrhythmias. 3. Obesity with extreme deconditioning. 4. Do not resuscitate status. 5. Diffuse abdominal pain and tenderness, not a candidate for any type of invasive workup or surgical exploration. I think she is approaching the end of her life. Hospice should be consulted in my opinion. She has metastatic squamous cell carcinoma on top of all of this. I have nothing else to add to her care other than encouraging the physicians caring for her to focus on comfort. I will sign off. Job ID: [id number]
[2019-03-19] MEDS: Atorvastatin Calcium 40 MG TAB PO SCH (20:59)
[2019-03-19] MEDS: Nystatin Cream 30 GM TUBE TOP SCH (21:01)
[2019-03-19] MEDS: Montelukast Sodium 10 mg Tablet PO SCH (21:01)
[2019-03-20] MEDS: busPIRone HCl 10 MG TAB PO SCH ×3 (01:03→15:10)
[2019-03-20] MEDS: Cefepime 2 GM in Sodium Chloride 0.9% 100 ML IVPB SCH ×3 (01:38→17:32)
[2019-03-20] MEDS: PROVENTIL INHALER 6.7 G (200 INHALATIONS) INH SCH ×3 (07:28→20:51)
[2019-03-20] MEDS: Mometasone/Formoterol 120 PUFF INHALER INH SCH ×2 (07:29→20:52)
--- NOTE | 2019-03-20 09:52 | PRG ---
DATE OF SERVICE: 03/20/2019 SUBJECTIVE: Shelli Mena is nonverbal. She is wearing her home ventilator mask. OBJECTIVE: VITAL SIGNS: She is afebrile. Heart rate is 105, respiratory rate is 12, oximetry is 93%, blood pressure 106/53. LUNGS: Distant, clear. HEART: Regular rhythm. ABDOMEN: Still diffusely tender. LABORATORY DATA: White count has not been repeated 2 days ago nor has electrolytes. IMPRESSION: 1. End-stage obstructive lung disease. 2. Diffuse abdominal tenderness, worrisome for peritonitis/bowel ischemia. 3. Coronary artery disease. 4. Do not resuscitate status. 5. History of hypertension. 6. Chronic GI blood loss. 7. Metastatic squamous cell carcinoma. I will transfer the patient to a medical bed. Put in evaluation for hospice. Job ID: [id number]
[2019-03-20] MEDS: Aspirin 81 mg Enteric Coated Tablet PO SCH (10:07)
[2019-03-20] MEDS: Carvedilol 3.125 MG TAB PO SCH ×2 (10:07→21:00)
[2019-03-20] MEDS: Potassium Chloride 20 MEQ TAB PO SCH (10:07)
[2019-03-20] MEDS: predniSONE 20 MG TAB PO SCH (10:08)
[2019-03-20] MEDS: Lisinopril 10 MG TAB PO SCH (10:08)
[2019-03-20] MEDS: Nystatin Cream 30 GM TUBE TOP SCH ×2 (10:10→21:00)
[2019-03-20] MEDS: Escitalopram Oxalate 20 mg Tablet PO SCH (10:10)
--- NOTE | 2019-03-20 14:39 | PDOC.CTH ---
Cardiology Progress Note - Subjective The pt seen and examined. No overnight events. She is resting well at this time. - Objective Vital Signs Temp Pulse Resp BP BP Pulse Ox 03/20/19 13:43 82 20 94 L 03/20/19 11:40 97.8 F 65 16 128/60 98 03/20/19 10:08 140/56 L 03/20/19 07:46 98.2 F 105 H 12 106/53 L 93 L 03/20/19 07:30 90 L 03/20/19 07:29 92 20 90 L 03/20/19 07:28 92 20 90 L 03/20/19 04:11 97.8 F 85 18 137/87 92 L Admit Weight 123 lb 3 oz Weight 121 lb 3.2 oz 03/19/19 03/20/19 03/21/19 06:59 06:59 06:59 Intake Total 1355 1200 Balance 1355 1200 - Physical Examination Lungs: other: (coarses and diminished at bases) Heart: RRR Abdomen: soft Extremities: other: (No edema) - Telemetry Telemetry Rhythm: SR with PACs - Labs Result Diagrams: 03/18/19 08:02 03/18/19 08:02 Troponin/CKMB Troponin I 0.021 ng/mL (< 0.028) 03/13/19 15:11 - Assessment/Plan 1. episodes of SVTs - stable; with Diltiazem 180mg qd, coreg 3.125mg BID, and ASA 81mg qd. 2. CAD with hx of CABG x3 - On BBlocker, ASA, and Lisinopril; stop Lipitor for hx of Liver cancer 3. End stage COPD - managed by roller pneumatic 4. HTN - stable 5. Chronic GI bleed - stable 6. Squamous cell carcinoma in Liver - MAR reviewed Pt. seen and eval. by me. I agree with the A/P by the DIRECTOR OF EDUCATION AND TRAINING. Continue present cardiac meds. Pt. is more confused than when I saw her in the past. Review of Systems - Review of Systems Constitutional: reports: see HPI
[2019-03-20] MEDS: Montelukast Sodium 10 mg Tablet PO SCH (21:00)
[2019-03-21] MEDS: PROVENTIL INHALER 6.7 G (200 INHALATIONS) INH SCH ×4 (00:06→19:46)
[2019-03-21] MEDS: Mometasone/Formoterol 120 PUFF INHALER INH SCH ×2 (06:30→19:46)
[2019-03-21] MEDS: Potassium Chloride 20 MEQ TAB PO SCH (08:43)
[2019-03-21] MEDS: Carvedilol 3.125 MG TAB PO SCH ×2 (08:44→20:24)
[2019-03-21] MEDS: predniSONE 20 MG TAB PO SCH (08:44)
[2019-03-21] MEDS: Lisinopril 10 MG TAB PO SCH (08:44)
[2019-03-21] MEDS: Escitalopram Oxalate 20 mg Tablet PO SCH (08:44)
[2019-03-21] MEDS: busPIRone HCl 10 MG TAB PO SCH ×3 (08:44→20:22)
[2019-03-21] MEDS: Aspirin 81 mg Enteric Coated Tablet PO SCH (08:44)
[2019-03-21] MEDS: Nystatin Cream 30 GM TUBE TOP SCH ×2 (08:49→20:32)
--- NOTE | 2019-03-21 11:21 | PDOC.CTH ---
Cardiology Progress Note - Subjective Pt. seen and eval. by me. She is on the oncology floor and has a CPAP masdk on. No new changes overnight. Likely will be placed on Hospice. She is presently DNR. - Objective Vital Signs Temp Pulse Resp BP BP Pulse Ox 03/21/19 08:44 140/56 L 03/21/19 08:00 98.5 F 95 20 169/72 H 90 L 03/21/19 06:30 78 16 03/21/19 06:29 78 16 03/21/19 00:06 16 Admit Weight 123 lb 3 oz Weight 121 lb 3.2 oz 03/20/19 03/21/19 03/22/19 06:59 06:59 06:59 Intake Total 1200 Balance 1200 - Physical Examination General/Neuro: other: (lethargic. difficult to get any conversation from the pt. ) Neck: no JVD present Lungs: other: (decreased BS throughout.) Heart: RRR Abdomen: soft Extremities: other: (multiple echymosis) - Labs Result Diagrams: 03/18/19 08:02 03/18/19 08:02 Troponin/CKMB Troponin I 0.021 ng/mL (< 0.028) 03/13/19 15:11 - Assessment/Plan 1. episodes of SVTs - stable; with Diltiazem 180mg qd, coreg 3.125mg BID, and ASA 81mg qd. 2. CAD with hx of CABG x3 - On BBlocker, ASA, and Lisinopril; stop Lipitor for hx of Liver cancer 3. End stage COPD - managed by leather staker 4. HTN - stable 5. Chronic GI bleed - stable 6. Squamous cell carcinoma in Liver - 7. DNR. Likely will be placed on hospice. i have little more to add from a cardiac standpoint. I will sign off. MAR reviewed
[2019-03-21 11:59] VITALS: BMI 23.6
[2019-03-21] MEDS ORDERED: Morphine 4 MG/ML VIAL SLOW IVP PRN (12:19)
--- NOTE | 2019-03-21 14:46 | PRG ---
DATE OF SERVICE: 03/21/2019 Shelli Mena is now on the Oncology Unit for comfort care. Placed an order for morphine. Inpatient hospice would be the best option for her in my opinion. Job ID: [id number]
[2019-03-21] MEDS: Montelukast Sodium 10 mg Tablet PO SCH (20:25)
[2019-03-22] MEDS: PROVENTIL INHALER 6.7 G (200 INHALATIONS) INH SCH ×4 (00:25→18:56)
[2019-03-22] MEDS: Mometasone/Formoterol 120 PUFF INHALER INH SCH ×2 (06:59→18:59)
[2019-03-22 08:08] VITALS: BP 165/67; TEMP 97.2
[2019-03-22] MEDS: Potassium Chloride 20 MEQ TAB PO SCH (09:43)
[2019-03-22] MEDS: Aspirin 81 mg Enteric Coated Tablet PO SCH (09:44)
[2019-03-22] MEDS: predniSONE 20 MG TAB PO SCH (09:44)
[2019-03-22] MEDS: Escitalopram Oxalate 20 mg Tablet PO SCH (09:44)
[2019-03-22] MEDS: Carvedilol 3.125 MG TAB PO SCH (09:44)
[2019-03-22] MEDS: Lisinopril 10 MG TAB PO SCH (09:44)
[2019-03-22] MEDS: busPIRone HCl 10 MG TAB PO SCH ×2 (09:44→14:07)
[2019-03-22] MEDS: Nystatin Cream 30 GM TUBE TOP SCH (09:46)
--- NOTE | 2019-03-24 02:33 | DIS ---
DATE OF ADMISSION: 03/13/2019 DATE OF DISCHARGE: 03/22/2019 ADMITTING DIAGNOSES: 1. Pneumonia, right lower lobe. 2. Rule out sepsis. 3. Chronic obstructive pulmonary disease with acute exacerbation, acute on chronic respiratory failure. 4. Chronic anemia. 5. Liver metastases, squamous cell. Primary unknown. 6. Anxiety disorder. 7. Generalized weakness. FINAL DIAGNOSES: 1. Right lower lobe pneumonia. 2. Chronic obstructive pulmonary disease, acute exacerbation, improving. 3. Acute on chronic respiratory failure. 4. Severe deconditioning. 5. Liver metastases, squamous cell. 6. Chronic anemia. 7. Anxiety disorder. 8. Generalized weakness. 9. Severe anorexia. BRIEF SUMMARY OF HOSPITAL COURSE: Ms. Mena is a 68-year-old female admitted because of cough, fever, and shortness of breath. The patient is in acute exacerbation of COPD, which is end-stage, and also pneumonia. The patient was started on IV antibiotics, cefepime and Solu-Medrol as well as neb treatments. The patient has been feeling very weak. She has chronic anemia. She was also started on vancomycin IV piggyback. Her shortness of breath slightly improved. She did not have any fever, but has not been eating well at all. She hardly eats anything. She still feels very very weak, unable to get out of the bed, stays in the bed all the time. The patient did have episodes of supraventricular tachycardia which was multifocal atrial tachycardia. The patient was not symptomatic. The patient had a consultation done with Cardiology. The patient is seen by Dr. Brown. He felt the patient with her general debilitated condition, poor prognosis, no intervention. Consultation was also done with Pulmonary in view of her pneumonia and COPD end-stage. The patient is seen by Dr. Khan and the impression was the patient has metastatic squamous cell carcinoma with extreme deconditioning and end-stage COPD. May also suspect that the patient may have ischemic bowel with abdominal pain and tenderness and she is not a candidate for any kind of surgical procedure. He suggested maybe to keep the patient comfortable with comfort care, possible hospice because her prognosis is extremely poor. Her condition was discussed with her family, the daughter, who is medical power of learning and development manager, and explained her prognosis and terminal condition and patient's daughter decided the patient to have hospice care following inpatient hospice care. The patient was accepted at [facility]. She is being discharged and transferred to [facility]. At the time of discharge, she was stable, vital signs stable. Lungs, breath sounds diminished bilaterally. No crackles or wheezes. Heart, S1 and S2 regular. DISCHARGE MEDICATIONS: 1. Lexapro 10 mg daily. 2. Aspirin 81 mg daily. 3. Atorvastatin 40 mg daily. 4. Symbicort 160/4.5 two puffs b.i.d. 5. DuoNeb q.i.d. 6. Singulair 10 mg daily. 7. Lasix 40 mg b.i.d. 8. Lisinopril 10 mg b.i.d. 9. BuSpar 15 mg t.i.d. 10. KCl 20 mEq daily. 11. Lipitor 40 mg daily. 12. Amlodipine 5 mg daily. 13. Coreg 3.125 b.i.d. The patient will be under hospice care inpatient. Job ID: [id number]
== END 2019-03-22 20:28 | disposition hospice, inpatient (51) | DRG 193 ==
LOC: ERS 14:51 → 2NO 21:03 → ONC 03-20 18:51
PROVIDERS: ADMIT Internal Medicine; ATTEND Internal Medicine
DX: J18.9 Pneumonia, unspecified organism (principal); J96.21 Acute and chronic respiratory failure with hypoxia; J44.0 Chronic obstructive pulmonary disease with (acute) lower respiratory infection; J44.1 Chronic obstructive pulmonary disease with (acute) exacerbation; C78.7 Secondary malignant neoplasm of liver and intrahepatic bile duct; I47.1 Supraventricular tachycardia; Z66 Do not resuscitate; C80.1 Malignant (primary) neoplasm, unspecified; D64.9 Anemia, unspecified; F41.9 Anxiety disorder, unspecified; I25.10 Atherosclerotic heart disease of native coronary artery without angina pectoris; E66.9 Obesity, unspecified; I10 Essential (primary) hypertension; E78.00 Pure hypercholesterolemia, unspecified; Z88.0 Allergy status to penicillin; Z79.899 Other long term (current) drug therapy; Z88.8 Allergy status to other drugs, medicaments and biological substances; Z79.82 Long term (current) use of aspirin; Z91.040 Latex allergy status; Z95.1 Presence of aortocoronary bypass graft; Z88.5 Allergy status to narcotic agent; Z87.891 Personal history of nicotine dependence; Z68.23 Body mass index [BMI] 23.0-23.9, adult
CPT/HCPCS: 36415; 71045; 80048; 80053; 80202; 82550; 83605; 83880; 84484; 85025; 87040; 87324; 87449; 93005; 94640; 94760; 96361; 96365; 96367; J0692; J1885; J2270; J2920; J2930; J3370; J3490; J7512; J7620